=== PATIENT | male | born 1940 | race Caucasian/White ===

== ENCOUNTER → 2017-08-07 | Day surgery (SDC) | payer OTHER, MEDICARE ==
[~2017-08-07] VITALS: Ht 182.9 cm; Wt 80.0 kg
[~2017-08-07] MED LIST: ACETAMINOPHEN 325 MG TAB PO PRN; AMOX250C3 PO; ASPI-435 PO; ATROPINE SULFATE 0.1 MG/ML 5ML SYR IV PRN; DURATUSS PO; FENTANYL CITRATE INJ 50 MCG/1 ML 2 ML VIAL ONE; HEPARIN SOD (PORCINE) 1000 UNIT/ML 10 ML VIAL ONE; INSPRA PO; LIDOCAINE HCL 1% 20 ML VIAL ONE; MIDAZOLAM HCL 1 MG/ML 2ML VIAL ONE; NIAC500T11 PO; NITROGLYCERIN/D5W 100MCG/ML 20ML SYR ONE; NiCARDipine HCL INJ 2.5 MG/ML 10 ML AMP ONE; ROPI1TAB PO; SODIUM CHLORIDE 0.9% 1000ML 1,000 ML IV SCH; SODIUM CHLORIDE 0.9% 1000ML 250 ML IV PRN
[2017-08-07 07:18] VITALS: BP 156/75; PULSE 53; TEMP 36.6; O2SAT 100; Ht 182.9 cm; Wt 80.0 kg
--- NOTE | 2017-08-07 07:35 | History & Physical Bridge Note ---
H&P Re-Evaluation Bridge Note: I have examined the patient, reviewed the History & Physical and in the interval since the performance of the History & Physical I have noted the following changes of clinical significance: No changes noted
--- NOTE | 2017-08-07 07:36 | Pre Sedation Assessment ---
Pre Sedation Assessment General Date of Sedation: Aug 07, 2017. Vital Signs Past 12 Hours Date Time Temp Pulse Resp B/P (MAP) Pulse Ox O2 Delivery O2 Flow Rate FiO2 08/07/17 07:18 36.6 53 16 156/75 (102) 100 Room Air Review Cardiovascular: regular rate, rhythm, no edema, no gallop Lungs: chest non-tender, lungs clear, normal breath sounds Pre-Sedation Airway Assessment Smoking Status: Never Smoker Hx of Sleep Apnea: No Short Thick Neck: No Thyro-mental Distance: > 3 Finger Breadths Oral Cavity: WNL Mallampati Classification: Class I ASA Classification: Class II NPO Status Date of Last Intake of Fluids: Aug 06, 2017 Time of Last Intake of Fluids: 1999 Date of Last Intake of Solids: Aug 06, 2017 Time of Last Intake of Solids: 1999 Procedure Planning Contraindications for Sedation: None Current Medications Reviewed: Yes Notes The planned sedation has been discussed with the patient. Informed Consent was obtained. I have identified the patient, determined the appropriateness of sedation and have assessed the patient immediately prior to the procedure. All medicine(s) and interventions are by my order.
--- NOTE | 2017-08-07 08:44 | [facility] Post Operative Brief Note ---
Preliminary Procedure Note Procedure Date Aug 07, 2017. Pre-Procedure Diagnosis Positive Stress Test AUC Score 7 Post-Procedure Diagnosis Mild CAD Procedure(s) Performed Coronary Angiography, Left Heart Cath, LV Angiography Vp Foundation Dr. Alejandro Miller Salon Leader(s) Javier Edwards Estimated Blood Loss <15cc Medication(s) Fentanyl (12.5 mcg IV), Heparin (5000 units IV), Nicardipine (250 mcg intra- arterial after arterial sheath inserted), Versed (1 mg IV), Lidocaine 1% (Local infiltration) Preliminary Findings Right dominant coronary anatomy Left main: Very short with near separate origins of the left anterior descending and left circumflex Left anterior descending: Type III in distribution with very large first septal branch, small first diagonal large bifurcating second diagonal branch. LAD system has mild luminal irregularities throughout but no obstruction. Apical segment is thin Left circumflex: Left circumflex has near separate origin and gives rise to an early takeoff high marginal branch followed by a bifurcating obtuse marginal and a trivial AV groove portion. There are moderate irregularities throughout Right coronary artery: Large dominant vessel with long PDA and single large posterior ventricular branch both of which reached to the apex. There are moderate irregularities throughout the vessel with mild ectasia. There is a pronounced xavier's crook in its proximal segment with 20-30% narrowing at its first bend Left ventricle: Nondilated with low normal LV systolic function EF 50% and no segmental abnormalities. Left ventricular end-diastolic pressure 10 mmHg Recommendations Medical therapy and/or Counseling Specimens None Fluids (cc crystalloids) 47 Anesthesia Start 0802 End 0824 Akash Coreasell Procedural Complication(s) None Disposition Script Worker Holding/Recovery
--- NOTE | 2017-08-07 08:55 | Discharge Instructions ---
Discharge Instructions Procedure Procedure Date: Aug 07, 2017. Reason for Visit: Abn Nuc Stress Test Dr Anglin To Do. Discharge Discharge Date: Aug 07, 2017. Discharge Diagnosis: Mild coronary atherosclerosis only Last Recorded Wt (Kilograms): 80 Anesthesia Post Anesthesia Instructions: If you have had General Anesthesia or IV Sedation: * Do not drive today. * Resume driving when surgeon permits. * Do not make important decisions or sign legal documents today. * Call surgeon for: 1. Temperature elevations greater than 101 degrees F. 2. Uncontrollable pain. 3. Excessive bleeding. 4. Persistent nausea and vomiting. 5. Medication intolerance (nausea, vomiting or rash). * For nausea and vomiting use only clear liquids such as: tea, soda, bouillon until nausea subsides, then gradually increase diet as tolerated. * If you have any concerns or questions, call your surgeon's office. If physician is unavailable and it is an emergency, call 911 or go to the nearest emergency room. Instructions Activity Recommendations: limitations as noted below Recommended Home Diet: resume previous diet Allergies: Coded Allergies: Fluoxetine (Unverified Allergy, Mild, CAUSE RLS, 10/31/09) Spironolactone (Unverified Allergy, Mild, RASH, 10/31/09) Acetaminophen (Unverified Allergy, Unknown, ANXIETY, 02/25/15) Baclofen (Unverified Allergy, Unknown, ANXIETY, 02/25/15) Benzodiazepines (Unverified Allergy, Unknown, PANIC ATTACK, 02/25/15) [place] [facility]CF (Unverified Allergy, Unknown, UNKNOWN, 02/25/15) Clioquinol (Unverified Allergy, Unknown, ANXIETY, 02/25/15) Diphenhydramine (Unverified Allergy, Unknown, ANXIETY, 02/25/15) Escitalopram (Unverified Allergy, Unknown, CAUSES RLS, 02/25/15) Fluvoxamine (Unverified Allergy, Unknown, CAUSES RLS, 02/25/15) Guaifenesin (Unverified Allergy, Unknown, UNKNOWN, 02/25/15) HMG-CoA-R Inhibitors (Verified Allergy, Unknown, STATINS, 06/03/09) Hydrocortisone (Unverified Allergy, Unknown, ANXIETY, 02/25/15) Paroxetine (Unverified Allergy, Unknown, CAUSES RLS, 02/25/15) Pseudoephedrine (Unverified Allergy, Unknown, UNKNOWN, 02/25/15) Zolpidem (Unverified Allergy, Unknown, ANXIETY, 02/25/15) Uncoded Allergies: PROPOFOL (Allergy, Mild, DELIRIUM, 08/07/17) Pt stated he could not hold legs still, and was thrashing around after having propofol. Provider Instructions ACTIVITY RECOMMENDATIONS: Excess manipulation of the wrist should be avoided for the next 24-48 hours. * No lifting over 2 pounds (approximately a 1/2 gallon of milk) with the utilized arm for 24 hours. * No strenuous activity such as bowling or tennis for 3 days. * Keep the site of the procedure covered with a bandage for 24 hours. *You may shower the day after the procedure. Do not take a tub bath or submerge the puncture site in water for the next 3 days. *Do not operate any motorized equipment for 3 days. SPECIAL CARE INSTRUCTIONS: The site may be slightly bruised and sore following your procedure. Should any of the following occur, contact the Dr. who performed your procedure. 1. Redness/inflammation, swelling, chills, or fever, or colored drainage at procedure site within 3-7 days after your procedure. 2. Coldness, discoloration, ongoing numbness, severe pain, or swelling. Expect mild tingling of hand and tenderness at the puncture site for up to three days. If this persists beyond three days, or other symptoms develop, notify the Dr. who performed your procedure. BLEEDING: If the procedure site on your wrist begins to bleed, do not panic 1. Place 1 or 2 fingers firmly just slightly above the insertion site to stop the bleeding. You may be able to feel your pulse as you hold pressure. 2. Lift your finger after 5 minutes to see if the bleeding has stopped. 3. Once the bleeding has stopped, gently wipe the wrist area clean with a bandage. * If the bleeding from your wrist does not stop after 10 minutes, or if there is a large amount of bleeding or spurting, call 911 (do not drive yourself to the hospital). SKIN IRRITATION: * You may experience some redness and/or swelling in the area where radiation was administered. If any skin irritation occurs, please contact your family physician. FOLLOW UP VISIT: Keep any scheduled doctor appointments. Follow Up Follow-up with: Dr. Miller as scheduled [facility] Recommendations: Call your doctor if: * Temperature above 101 degrees * Pain not relieved by pain medicine ordered * There is increased drainage or redness from any incision * You have any unanswered questions or concerns. Your Doctors Instructions noted above were prepared by provider Alejandro Miller. Patient Signature Section: Patient Instructions Signature Page Masood Goldstein Patient (or Guardian) Signature/Date: I have read and understand the instructions given to me by my caregivers. Caregiver/RN/Doctor Signature/Date: The above-named patient and/or guardian has received patient instructions on this date. + Original Patient Signature Page (only) stays with chart. Please make copy for patient.
--- NOTE | 2017-08-07 09:04 | Cardiac Catheterization ---
Procedure Note Procedure Date Aug 07, 2017. Pre-Procedure Diagnosis Positive Stress Test AUC Score 7 Post-Procedure Diagnosis Mild CAD Procedure(s) Performed Coronary Angiography, Left Heart Cath, LV Angiography Wheel And Caster Repairer Dr. Alejandro Miller Sr Community Manager(s) Javier Bazan Estimated Blood Loss Less than 15 cc Medication(s) Fentanyl (12.5 mcg IV), Heparin (5000 units IV), Nicardipine (250 mcg intra- arterial after arterial sheath insertion), Versed (1 mg IV), Lidocaine 1% ( Local infiltration) Summary of Findings Right dominant coronary anatomy Left main: Very short with near separate origins of the left anterior descending and left circumflex Left anterior descending: Type III in distribution with very large first septal branch, small first diagonal large bifurcating second diagonal branch. LAD system has mild luminal irregularities throughout but no obstruction. Apical segment is thin Left circumflex: Left circumflex has near separate origin and gives rise to an early takeoff high marginal branch followed by a bifurcating obtuse marginal and a trivial AV groove portion. There are moderate irregularities throughout Right coronary artery: Large dominant vessel with long PDA and single large posterior ventricular branch both of which reached to the apex. There are moderate irregularities throughout the vessel with mild ectasia. There is a pronounced xavier's crook in its proximal segment with 20-30% narrowing at its first bend Left ventricle: Nondilated with low normal LV systolic function EF 50% and no segmental abnormalities. Left ventricular end-diastolic pressure 10 mmHg Hemodynamics Rest Ao: 128/69/92 Final Ao: 120/61/90 LV: 105/2/10, LVEDP 10 Recommendations Medical therapy and/or Counseling Specimens None Radiation Exposure (mGy) 185 Contrast (mls) 136 Fluids (cc crystalloids) 47 Anesthesia Start 08, End 08 V. Torsell Procedural Complication(s) None Disposition Workshop Manager Holding/Recovery ACC Data Cardiac Status Clinical evaluation leading to the procedure CAD Presntation: Positive Stress Test Anginal Classification: CCS II Heart Failure: No Cardiogenic Shock w/in 24Hrs: No Cardiac Arrest w/in 24Hrs: No Imaging studies past 6 months: Yes Stress studies past 6 months: Yes Stress Echocardiogram: Yes - Indeterminant Stress Testing w/SPECT MPI: Yes - Positive Coronary Anatomy Dominant: Right Left Main (% Stenosis): Normal LAD (% Stenosis): Mid (10%), Distal (Thin with mild luminal irregularities) D1 (% Stenosis): Ostial, Proximal (Mild irregularities) D2 (% Stenosis): Proximal (Large with mild irregularities) Circumflex (% Stenosis): Ostial (Near separate origin, no stenosis), Mid (Mild irregularities) OM1 (% Stenosis): Mid (Mild irregularity) OM2 (% Stenosis): Mid (Large vessel with mild irregularities) RCA (% Stenosis): Proximal (20%) R PDA (% Stenosis): Mid (Mild irregularities with lengthy vessel reaching apex) R PL1 (% Stenosis): Mid (Mild irregularities with long vessel reaching the apex ) Left Ventricular Angiography EF (%): 50 Mitral Regurgitation: None Diagnostic Status: Elective Closure Device Percutaneous Entry Location: Radial Closure Device: Radial Band Recommendations: Medical therapy and/or Counseling
[2017-08-07 10:10] VITALS: BP 110/66; PULSE 56; O2SAT 99
== END | disposition home or self-care (01) ==
LOC: C.CATH 07:00
PROVIDERS: ATTEND Internal Medicine Interventional Cardiology
DX: I25.10 Atherosclerotic heart disease of native coronary artery without angina pectoris (principal); I10 Essential (primary) hypertension; E27.40 Unspecified adrenocortical insufficiency; E78.5 Hyperlipidemia, unspecified; Z88.6 Allergy status to analgesic agent

== ENCOUNTER 2021-03-22 12:41 | Observation (INO) ==
--- NOTE | 2021-03-22 13:04 | Emergency Department Note ---
Impression & Plan Atypical chest pain ED Provider Note NAME: DOREEN MORROW AGE: 80 SEX: M : 1940 ARRIVES VIA: Walk-In INFORMANT: Patient, ED PROVIDER(S): Itz Coyne MD Chief Complaint: Chest pain HPI: Patient does present with just left of center chest discomfort which began around 5 AM this morning. The patient states it has been intermittent in nature and nonradiating. It does feel pressure-like. Patient denies any fevers chills chest pains or shortness of breath. No history of DVT or PE. The patient does admit to increased stress as he is working on a project that is not going well. Patient denies any tobacco use but does drink alcohol essentially daily. Patient did have a negative cardiac catheterization several years ago he does follow with Dr. Miller. Patient states that the pain has been intermittent but it seems to be presenting more frequently. Patient states his current pain is about 4 out of 10. Patient did take a baby aspirin but no other medications today. Patient denies any infectious symptoms. Patient is vaccinated for Covid. He denies any recent travel, history of DVT or PE, or lower extremity swelling. Patient does relate that his father does have a history of CABG and stroke. ROS: See HPI for pertinent positives and negatives. A total of 10 systems were reviewed and otherwise negative. Past medical history: See below Surgical history: See below Social history: See below Physical Exam: GENERAL: NAD, wearing glasses, wearing a mask, non-toxic. EYE EXAM: Normal conjunctiva. PERRL, no anisocoria and EOM's grossly intact w/o pain. NECK: Supple, no nuchal rigidity, no adenopathy, non-tender. No signs of meningismus. LUNGS: Clear to auscultation. Normal chest wall mechanics. HEART: Bradycardic, no MRG. ABDOMEN: Abdomen soft, non-tender, normo-active bowel sounds, no masses, no rebound or guarding. BACK: No CVA TTP. SKIN: No rashes and no bruising. UPPER EXTREMITIES: Upper extremities are grossly normal. LOWER EXTREMITIES: Grossly normal, no edema. Negative Homans' sign bilaterally. NEURO EXAM: A&O x3, cranial nerves II-XII grossly intact, normal speech, moves all 4 extremities on command w/o issue. Differential diagnoses: Cardiac ischemia, aortic dissection, pulmonary embolism, pneumothorax, pneumonia, pericarditis, myocarditis, esophageal rupture, GERD, cholecystitis, pancreatitis, musculoskeletal, as well as other pathologies. Course: Patient was seen and evaluated the bedside. Full history physical exam was performed. EKG interpreted by me Bradycardia with PACs, rate of 54, normal intervals, left axis deviation, T wave inversion inferiorly. Imaging Studies: See Below Cardiac monitoring: An order was placed for continuous cardiac monitoring. The monitor shows a rate of 55 with sinus rhythm. MDM: Patient was seen due to concern for atypical chest pain. Blood work was obtained. The patient's blood work unremarkable with negative troponin. Given the atypical nature I did speak the on-call business performance analyst Dr. Keller who r ecommended observation. The patient was given a full dose aspirin. Nitroglycerin did not change his discomfort. I did speak with the on-call hospitalist and a JAIDEN Peraza and the patient was admitted by Dr. Otoole. Past Med/Surg History Medical History BPH (benign prostatic hyperplasia) CAD (coronary artery disease) GERD (gastroesophageal reflux disease) HLD (hyperlipidemia) HTN (hypertension) Hyperaldosteronism RLS (restless legs syndrome) Surgical History History of appendectomy History of inguinal hernia repair History of tonsillectomy and adenoidectomy Family History Father Coronary heart disease Stroke Social History Smoking Status: Never smoker Feels Safe at Home: Yes Allergies Allergies Allergy/AdvReac Type Severity Reaction Status Date / Time fluoxetine Allergy Mild CAUSE RLS Unverified 03/22/21 14:37 spironolactone Allergy Mild RASH Unverified 03/22/21 14:37 acetaminophen Allergy Unknown ANXIETY Unverified 03/22/21 14:37 baclofen Allergy Unknown ANXIETY Unverified 03/22/21 14:37 Benzodiazepines Allergy Unknown PANIC Unverified 03/22/21 14:37 ATTACK clioquinol Allergy Unknown ANXIETY Unverified 03/22/21 14:37 diphenhydramine Allergy Unknown ANXIETY Unverified 03/22/21 14:37 escitalopram Allergy Unknown CAUSES RLS Unverified 03/22/21 14:37 fluvoxamine Allergy Unknown CAUSES RLS Unverified 03/22/21 14:37 guaifenesin Allergy Unknown UNKNOWN Unverified 03/22/21 14:37 hydrocortisone Allergy Unknown ANXIETY Unverified 03/22/21 14:37 paroxetine Allergy Unknown CAUSES RLS Unverified 03/22/21 14:37 pseudoephedrine Allergy Unknown UNKNOWN Unverified 03/22/21 14:37 zolpidem Allergy Unknown ANXIETY Unverified 03/22/21 14:37 PROPOFOL Allergy Mild DELIRIUM Uncoded 03/22/21 14:37 [place] Blue FCF Allergy Unknown UNKNOWN Uncoded 03/22/21 14:37 HMG-CoA-R Inhibitors Allergy Unknown STATINS Uncoded 03/22/21 14:37 Home Meds Home Medications Medication Instructions Recorded Confirmed eplerenone 25 mg tablet 50 mg PO BID 03/22/21 03/22/21 pramipexole 1.5 mg tablet 3 mg PO HS 03/22/21 03/22/21 tamsulosin 0.4 mg capsule 0.4 mg PO DAILY 03/22/21 03/22/21 Results & Data (ED) Vital Signs Vital Signs - 24 hr 03/22/21 12:54 03/22/21 13:05 03/22/21 13:30 Temperature 36.4 C L Temperature Source Oral Pulse Rate 49 L 46 L 53 L Pulse Rate from SpO2 Sensor 47 L Respiratory Rate 18 15 15 Blood Pressure 125/77 102/72 Blood Pressure Mean 93 82 Pulse Oximetry 96 97 Oxygen Delivery Method Room Air Sepsis Recent Fever Within 48 Hours No Sepsis New/Unexplained Change in Mental Status No Sepsis Action Taken by Nursing No Action Required 03/22/21 13:49 03/22/21 14:00 03/22/21 14:30 Temperature Temperature Source Pulse Rate 49 L 46 L Pulse Rate from SpO2 Sensor 50 L Respiratory Rate 11 L 23 Blood Pressure Blood Pressure Mean Pulse Oximetry 95 96 Oxygen Delivery Method Room Air Sepsis Recent Fever Within 48 Hours Sepsis New/Unexplained Change in Mental Status Sepsis Action Taken by Nursing 03/22/21 15:00 03/22/21 15:30 03/22/21 16:00 Temperature Temperature Source Pulse Rate 65 55 L 60 Pulse Rate from SpO2 Sensor 54 L 53 L Respiratory Rate 21 15 19 Blood Pressure Blood Pressure Mean Pulse Oximetry 94 96 Oxygen Delivery Method Sepsis Recent Fever Within 48 Hours Sepsis New/Unexplained Change in Mental Status Sepsis Action Taken by Nursing 03/22/21 16:30 03/22/21 17:00 03/22/21 17:30 Temperature Temperature Source Pulse Rate 63 62 58 L Pulse Rate from SpO2 Sensor Respiratory Rate 20 17 17 Blood Pressure 134/81 129/82 142/87 H Blood Pressure Mean 98 97 105 Pulse Oximetry 95 Oxygen Delivery Method Room Air Sepsis Recent Fever Within 48 Hours Sepsis New/Unexplained Change in Mental Status Sepsis Action Taken by Half-Way Medications Current Medication List: was personally reviewed by me Laboratory Data Attestation: I reviewed the patient's lab results. Result diagrams: 03/22/21 13:20 03/22/21 13:20 Lab Results 03/22/21 03/22/21 03/22/21 Range/Units 13:20 13:20 Unknown WBC 5.46 (4.8-10.8) K/uL RBC 4.76 (4.7-6.1) M/uL Hgb 15.8 (14.0-18.0) g/dL Hct 46.4 (42-52) % MCV 97.5 (80-100) fL MCH 33.2 (25-34) pg MCHC 34.1 (32-36) g/dL RDW Std Deviation 44.7 (36.4-46.3) fL RDW Coeff of Pietro 12.5 (11.5-14.5) % Plt Count 180 (130-400) K/uL MPV 10.3 (7.4-10.4) fL Immature Gran % (Auto) 0.2 % Neut % (Auto) 57.7 % Lymph % (Auto) 29.5 % [place] % (Auto) 10.3 % Eos % (Auto) 1.8 % Baso % (Auto) 0.5 % Neut # (Auto) 3.15 (1.4-6.5) K/uL Lymph # (Auto) 1.61 (1.2-3.4) K/uL [place] # (Auto) 0.56 (0.11-0.59) K/uL Eos # (Auto) 0.10 (0-0.5) K/uL Baso # (Auto) 0.03 (0-0.2) K/uL Immature Gran # (Auto) 0.01 (0.00-0.02) K/uL Sodium 140 (136-145) mmol/L Potassium 4.3 (3.5-5.1) mmol/L Chloride 108 H (98-107) mmol/L Carbon Dioxide 27 (21-32) mmol/L Anion Gap 5.0 (3-11) BUN 19 H (7-18) mg/dl Creatinine 0.97 (0.6-1.4) mg/dl Est Cr Clr Drug Dosing 66.7 ml/min Est GFR ( Amer) 85.1 ml/min Est GFR (Non-Af Amer) 73.4 ml/min BUN/Creatinine Ratio 19.1 (10-20) Glucose 69 L (70-99) mg/dl Calcium 9.3 (8.5-10.1) mg/dl Total Bilirubin 0.7 (0.2-1) mg/dl AST 22 (15-37) U/L ALT 35 (12-78) U/L Alkaline Phosphatase 116 (45-117) U/L Troponin I < 0.015 (0-0.045) ng/ml Total Protein 6.7 (6.4-8.2) gm/dl Albumin 3.3 L (3.4-5.0) gm/dl Globulin 3.4 (2.5-4.0) gm/dl Albumin/Globulin Ratio 1.0 (0.9-2) Lipase 160 (73-393) U/L SARS-CoV-2, RNA, NAAT NEGATIVE (NEGATIVE) Administered Medications Al Hydrox/Mg Hydrox/Simethicone (Aluminum/Magnesium Susp 30 Ml Udc) 30 ml PO Q6H PRN PRN Reason: Chest Pain Stop: 04/21/21 15:45 Last Admin: 03/22/21 16:54 Dose: 30 ml Documented by: [id number] Pantoprazole Sodium (Pantoprazole 40 Mg Tab) 40 mg PO DAILY LAKESHA Stop: 04/21/21 15:59 Last Admin: 03/22/21 16:54 Dose: 40 mg Documented by: [id number] Discontinued Medications Aspirin (Aspirin Chew 324 Mg) 324 mg PO NOW STA Stop: 03/22/21 13:20 Last Admin: 03/22/21 13:24 Dose: 324 mg Documented by: [id number] Sodium Chloride (Nss 1000ml) 500 mls @ 999 mls/hr IV .Q31M ONE Stop: 03/22/21 13:50 Last Infusion: 03/22/21 14:52 Dose: 0 mls/hr Documented by: [id number] Admin: 03/22/21 13:39 Dose: 999 mls/hr Documented by: [id number] Nitroglycerin (Nitroglycerin Sl 0.4 Mg/Tab Tab) 0.4 mg SL NOW STA Stop: 03/22/21 13:20 Last Admin: 03/22/21 13:25 Dose: 0.4 mg Documented by: [id number] Imaging Data Radiologist's Impression: Chest X-Ray 03/22/21 13:20 XR chest 1V portable HISTORY: 80 years-old Male Chest Pain acute atypical chest pain COMPARISON: Chest radiographs 04/24/2007 TECHNIQUE: Portable AP view of the chest FINDINGS: Cardiac silhouette is mildly enlarged. Mild left hemidiaphragmatic elevation w ith linear subsegmental left lung base opacities. No pneumothorax, large pleural effusion or overt pulmonary edema. Degenerative changes of the shoulders and spine. IMPRESSION: Mild left hemidiaphragmatic elevation with linear left lung base atelectasis. ACT 112: Negative or not required by law. The above report was generated using voice recognition software. It may contain grammatical, syntax or spelling errors. Electronically signed by: Samir Son M.D. 03/22/2021 1:43 PM Discharge Plan Visit Data Chief Complaint: Chest Pain Stated Complaint: CHEST PAIN ED Provider: Itz Coyne Discharge Problem: Atypical chest pain Patient Disposition: Admitted As Inpatient Prescriptions Prescriptions: No Action tamsulosin 0.4 mg capsule 0.4 mg PO DAILY RF: 0 pramipexole 1.5 mg tablet 3 mg PO HS RF: 0 eplerenone 25 mg Tablet 50 mg PO BID RF: 0 Referrals Referrals: Salas Morin MD [Outside Practitioners] -
[2021-03-22] MEDS ORDERED: NITROGLYCERIN SL 0.4 MG/TAB TAB SL STA (13:19)
[2021-03-22] MEDS ORDERED: NITROGLYCERIN SL 0.4 MG/TAB TAB SL PRN ×2 (13:19→18:26)
[2021-03-22] MEDS ORDERED: ASPIRIN CHEW 324 MG PO STA (13:19)
[2021-03-22] MEDS ORDERED: SODIUM CHLORIDE 0.9% 1000ML 500 ML IV ONE (13:20)
[2021-03-22 13:43] LABS: Basophils # (auto) 0.03 K/uL (0-0.2); Basophils % (auto) 0.5 %; Eosinophils % (auto) 1.8 %; Hematocrit (blood only) 46.4 % (42-52); Hemoglobin 15.8 g/dL (14.0-18.0); Immature Granulocytes # (auto) 0.01 K/uL (0.00-0.02); Immature Granulocytes % (auto) 0.2 %; Lymphocytes # (auto) 1.61 K/uL (1.2-3.4); Lymphocytes % (auto) 29.5 %; Mean Corpuscular Hemoglobin 33.2 pg (25-34); Mean Corpuscular Hgb Conc 34.1 g/dL (32-36); Mean Corpuscular Volume 97.5 fL (80-100); Mean Platelet Volume 10.3 fL (7.4-10.4); Monocytes # (auto) 0.56 K/uL (0.11-0.59); Monocytes % (auto) 10.3 %; Neutrophils # (auto) 3.15 K/uL (1.4-6.5); Neutrophils % (auto) 57.7 %; Platelet Count 180 K/uL (130-400); RDW Coefficient of Variation 12.5 % (11.5-14.5); RDW Standard Deviation 44.7 fL (36.4-46.3); Red Blood Count 4.76 M/uL (4.7-6.1); White Blood Count 5.46 K/uL (4.8-10.8)
--- NOTE | 2021-03-22 13:45 | XRay Report ---
XR chest 1V portable HISTORY: 80 years-old Male Chest Pain acute atypical chest pain COMPARISON: Chest radiographs 04/24/2007 TECHNIQUE: Portable AP view of the chest FINDINGS: Cardiac silhouette is mildly enlarged. Mild left hemidiaphragmatic elevation with linear subsegmental left lung base opacities. No pneumothorax, large pleural effusion or overt pulmonary edema. Degenera tive changes of the shoulders and spine. IMPRESSION: Mild left hemidiaphragmatic elevation with linear left lung base atelectasis. ACT 112: Negative or not required by law. The above report was generated using voice recognition software. It may contain grammatical, syntax o r spelling errors. Electronically signed by: Samir Son M.D. 03/22/2021 1:43 PM
[2021-03-22 14:02] LABS: Alanine Aminotransferase 35 U/L (12-78); Albumin Level 3.3 gm/dl (3.4-5.0); Aspartate Aminotransferase 22 U/L (15-37); BUN Creatinine Ratio 19.1 (10-20); Blood Urea Nitrogen 19 mg/dl (7-18); Calcium 9.3 mg/dl (8.5-10.1); Carbon Dioxide 27 mmol/L (21-32); Chloride 108 mmol/L (98-107); Creatinine Clr Calc Pharmacy 66.7 ml/min; Est GFR (African American) 85.1 ml/min; Est GFR (Non-African American) 73.4 ml/min; Glucose 69 mg/dl (70-99); Lipase 160 U/L (73-393); Potassium 4.3 mmol/L (3.5-5.1); Sodium 140 mmol/L (136-145)
[2021-03-22 14:06] LABS: Alkaline Phosphatase 116 U/L (45-117); Bilirubin,Total 0.7 mg/dl (0.2-1); Globulin 3.4 gm/dl (2.5-4.0); Total Protein 6.7 gm/dl (6.4-8.2); Troponin I < 0.015 ng/ml (0-0.045)
[2021-03-22] MEDS ORDERED: ALUMINUM/MAGNESIUM SUSP 30 ML UDC PO PRN (15:46)
--- NOTE | 2021-03-22 15:59 | Cardiology Consultation ---
Date of Consultation March 22, 2021 Assessment & Plan (1) Chest pain: (2) CAD (coronary artery disease): (3) GERD (gastroesophageal reflux disease): (4) Hiatal hernia: (5) Anxiety: It was my pleasure to see Mr. Goldstein in consultation today. His chest discomfort is atypical for angina but given his history of nonobstructive coronary disease I do believe for 23-hour observation is warranted at this time with serial cardiac enzymes and a resting echocardiogram. There is also a strong possibility that this is related to his GERD and I will give him Maalox now to see if this does not improve his symptoms. I will also start him on Protonix 40 mg p.o. daily. Further recommendations to follow in the a.m. History of Present Illness Reason for Consultation: chest pain Requesting Physician: Dr. Coyne Attending Physician: DEDRICK History of Present Illness It was my pleasure to see Mr. Goldstein in cardiac consultation today March 22, 2021. He is a very pleasant 80-year-old gentleman who presents to [facility] emergency department with several hours of chest discomfort. He notes that his chest discomfort started around 5 AM this morning. He describes as a dull achy sensation across his left precordium. He denies any associated symptoms with it. He notes that the discomfort was waxing and waning all morning and slowly progressed to the point where he became concerned and came into the ER for further evaluation. He does have a history of noncardiac chest pain in the past along with the diagnosis of GERD and hiatal hernia. He states that at first the discomfort did not feel like his normal GERD symptoms but as the day has gone on it does feel as though it is acid reflux. Otherwise, has been in his normal state of health lately. He did have half a glass of wine before going to bed last night but no other dietary changes as of late. Past medical history as per most recent outpatient visit: 1.Chronic ventricular ectopy. 2.Low normal LV systolic function. 3.False-positive stress Echo and stress nuclear imaging. 4.Mild coronary atherosclerosis without obstructive disease by cardiac catheterization, August 07, 2017 5.Mild hyperlipidemia with a history of statin intolerance 6.Hypothyroidism 7. GERD 8. Hiatal hernia Allergies Allergy/AdvReac Type Severity Reaction Status Date / Time fluoxetine Allergy Mild CAUSE RLS Unverified 03/22/21 14:37 spironolactone Allergy Mild RASH Unverified 03/22/21 14:37 acetaminophen Allergy Unknown ANXIETY Unverified 03/22/21 14:37 baclofen Allergy Unknown ANXIETY Unverified 03/22/21 14:37 Benzodiazepines Allergy Unknown PANIC Unverified 03/22/21 14:37 ATTACK clioquinol Allergy Unknown ANXIETY Unverified 03/22/21 14:37 diphenhydramine Allergy Unknown ANXIETY Unverified 03/22/21 14:37 escitalopram Allergy Unknown CAUSES RLS Unverified 03/22/21 14:37 fluvoxamine Allergy Unknown CAUSES RLS Unverified 03/22/21 14:37 guaifenesin Allergy Unknown UNKNOWN Unverified 03/22/21 14:37 hydrocortisone Allergy Unknown ANXIETY Unverified 03/22/21 14:37 paroxetine Allergy Unknown CAUSES RLS Unverified 03/22/21 14:37 pseudoephedrine Allergy Unknown UNKNOWN Unverified 03/22/21 14:37 zolpidem Allergy Unknown ANXIETY Unverified 03/22/21 14:37 PROPOFOL Allergy Mild DELIRIUM Uncoded 03/22/21 14:37 [place] FCF Allergy Unknown UNKNOWN Uncoded 03/22/21 14:37 HMG-CoA-R Inhibitors Allergy Unknown STATINS Uncoded 03/22/21 14:37 Home Medications Medication Instructions Recorded Confirmed Type eplerenone 25 mg tablet 50 mg PO DAILY 03/22/21 03/22/21 History pramipexole 1.5 mg tablet 3 mg PO HS 03/22/21 03/22/21 History tamsulosin 0.4 mg capsule 0.4 mg PO DAILY 03/22/21 03/22/21 History Patient History Social History Smoking Status: Never smoker Feels Safe at Home: Yes Review of Systems Review of Systems: All systems reviewed & are unremarkable except as noted in HPI & below Physical Exam Physical Exam: General: Awake, alert and oriented x 3. No acute distress. HEENT: Normocephalic, atraumatic. Pupils equal, round and reactive to light and accommodation. Extraocular muscles are intact. Anicteric sclera. Moist mucous membranes. Neck: No JVD. No bruit. Cardiovascular: Regular. Positive S-4. Normal S-1 and S-2. No S-3. No murmurs or rubs. Pulmonary: Clear to auscultation B/L. No rales, rhonchi or wheezing Abdomen: Bowel sounds x 4, soft. No rebound, guarding or tenderness. No organomegaly. Extremities: No clubbing, cyanosis or edema. +2 pedal pulses bilaterally. Skin: Warm and dry. Results & Data ([facility]) Vital Signs (Past 12 Hours) Vital Signs Temp Pulse Resp BP Pulse Ox 03/22/21 13:49 95 03/22/21 13:30 53 L 15 102/72 03/22/21 13:05 46 L 15 97 03/22/21 12:54 36.4 C L 49 L 18 125/77 96
--- NOTE | 2021-03-22 16:35 | History & Physical Report ---
Date of Service March 22, 2021 Assessment & Plan (1) Chest pain: Plan: History nonobstructive CAD Patient is 80 y/o M with PMH chronic ventricular ectopy, mild CAD without obstructive disease on cardiac cath 2017, HTN, HLD, RLS, BPH presented to ER with complaint of chest pain started this morning. Denies any associated shortness of breath, dizziness, syncope, palpitations. In ER patient afebrile, pulse 40s and 50s, BP 125/77, 96% on room air. Patient was given 1 sublingual nitro, 324 mg aspirin and 500 mL NSS. Initial troponin negative. EKG sinus bradycardia, nonspecific T wave abnormality While in ER patient reports chest discomfort seems to be constant and now he reports it feels like indigestion and now feels like chest discomfort is almost resolved. Atypical CP. R/O ACS. -Monitor Vitals -Repeat EKG in am -Will trend troponin -Echo -lipid panel in am -aspirin -Nitro prn CP and repeat EKG for CP -Cardiology consult, Started protonix and gave maalox for possible GERD (2) Bradycardia: Plan: Sinus bradycardia. Rate 40s-50s in ER. Denies dizziness, syncope -Monitor on tele (3) Hyperaldosteronism: Plan: -Continue eplerenone (4) HLD (hyperlipidemia): Plan: Diet controlled -Lipid panel in a.m. (5) BPH (benign prostatic hyperplasia): Plan: -Continue tamsulosin (6) RLS (restless legs syndrome): Plan: -Continue pramipexole DVT Prophylaxis -Heparin SQ Conditional code as per discussion with pt, wants chest compressions defibrillation, medication does not want intubated or mechanical ventilation Follows with Dr Aparicio for routine care Pt was seen and care coordinated with Dr Otoole. See addendum History of Present Illness Chief Complaint: Chest pain Primary Care Provider: Jonathon Aparicio DO Patient is 80 y/o M with PMH chronic ventricular ectopy, mild CAD without obstructive disease on cardiac cath 2017, HTN, HLD, RLS, BPH presented to ER with complaint of chest pain started this morning. Patient reports this morning around 5 AM started with slight chest discomfort over the left side of chest seem to be occurring approximately every 2 minutes and lasted approximately 30 seconds. Patient reports he tried to ignore it and later in the day pain seemed to slightly intensify. Denies any associated shortness of breath, dizziness, syncope, palpitations. Denies fever/chills, diaphoresis, N/V/D/C, ANDERSON, vision changes, neck pain, orthopnea, cough, sore throat, choking, otalgia, rhinorrhea, abdominal pain, paresthesias, weakness, extremity weakness, extremity edema, rashes, urinary symptoms. In ER patient afebrile, pulse 40s and 50s, BP 125/77, 96% on room air. Patient was given 1 sublingual nitro, 324 mg aspirin and 500 mL NSS. While in ER patient reports chest discomfort seems to be constant and now he reports it feels like indigestion and now feels like chest discomfort is almost resolved. Initial troponin negative. EKG sinus bradycardia, nonspecific T wave abnormality Allergies Allergy/AdvReac Type Severity Reaction Status Date / Time fluoxetine Allergy Mild CAUSE RLS Unverified 03/22/21 14:37 spironolactone Allergy Mild RASH Unverified 03/22/21 14:37 acetaminophen Allergy Unknown ANXIETY Unverified 03/22/21 14:37 baclofen Allergy Unknown ANXIETY Unverified 03/22/21 14:37 Benzodiazepines Allergy Unknown PANIC Unverified 03/22/21 14:37 ATTACK clioquinol Allergy Unknown ANXIETY Unverified 03/22/21 14:37 diphenhydramine Allergy Unknown ANXIETY Unverified 03/22/21 14:37 escitalopram Allergy Unknown CAUSES RLS Unverified 03/22/21 14:37 fluvoxamine Allergy Unknown CAUSES RLS Unverified 03/22/21 14:37 guaifenesin Allergy Unknown UNKNOWN Unverified 03/22/21 14:37 hydrocortisone Allergy Unknown ANXIETY Unverified 03/22/21 14:37 paroxetine Allergy Unknown CAUSES RLS Unverified 03/22/21 14:37 pseudoephedrine Allergy Unknown UNKNOWN Unverified 03/22/21 14:37 zolpidem Allergy Unknown ANXIETY Unverified 03/22/21 14:37 PROPOFOL Allergy Mild DELIRIUM Uncoded 03/22/21 14:37 [place] [employer] FCF Allergy Unknown UNKNOWN Uncoded 03/22/21 14:37 HMG-CoA-R Inhibitors Allergy Unknown STATINS Uncoded 03/22/21 14:37 Home Medications Medication Instructions Recorded Confirmed Type eplerenone 25 mg tablet 50 mg PO BID 03/22/21 03/22/21 History pramipexole 1.5 mg tablet 3 mg PO HS 03/22/21 03/22/21 History tamsulosin 0.4 mg capsule 0.4 mg PO DAILY 03/22/21 03/22/21 History Past Med/Surg History Medical History BPH (benign prostatic hyperplasia) CAD (coronary artery disease) GERD (gastroesophageal reflux disease) HLD (hyperlipidemia) HTN (hypertension) Hyperaldosteronism RLS (restless legs syndrome) Surgical History History of appendectomy History of inguinal hernia repair History of tonsillectomy and adenoidectomy Family History Father Coronary heart disease Stroke Social History Smoking Status: Never smoker Feels Safe at Home: Yes Review of Systems Review of Systems: All systems reviewed & are unremarkable except as noted in HPI & below Physical Exam Physical Exam: General: no distress, WDWN Head: normocephalic, atraumatic Eyes: PERRL, conjunctiva non-injected, anicteric ENT: normal inspection external ears, nose, mucous membranes moist Neck: supple, trachea midline Lungs: clear, no respiratory distress, no wheezing/rhonchi/rales CV: bradycardia, rate 56, regular rhythm, no murmur, no pretibial edema Abd: normal BS, soft, non-tender Ext: no cyanosis, no calf tenderness Neuro: A&O x 3, no focal deficits noted, normal affect Skin: warm, dry Results & Data Results & Data ([facility]) Vital Signs (Past 12 Hours) Vital Signs Temp Pulse Resp BP Pulse Ox 03/22/21 13:49 95 03/22/21 13:30 53 L 15 102/72 03/22/21 13:05 46 L 15 97 03/22/21 12:54 36.4 C L 49 L 18 125/77 96 Laboratory Results Short CBC 03/22/21 Range/Units 13:20 WBC 5.46 (4.8-10.8) K/uL Hgb 15.8 (14.0-18.0) g/dL Hct 46.4 (42-52) % Plt Count 180 (130-400) K/uL BMP 03/22/21 13:20 Sodium 140 Potassium 4.3 Chloride 108 H Carbon Dioxide 27 BUN 19 H Creatinine 0.97 Glucose 69 L Calcium 9.3 Cardiac Enzymes 03/22/21 Range/Units 13:20 Troponin I < 0.015 (0-0.045) ng/ml Liver Function 03/22/21 Range/Units 13:20 Total Bilirubin 0.7 (0.2-1) mg/dl AST 22 (15-37) U/L ALT 35 (12-78) U/L Alkaline Phosphatase 116 (45-117) U/L Albumin 3.3 L (3.4-5.0) gm/dl Diagnostic Findings Chest X-Ray 03/22/21 13:20 XR chest 1V portable HISTORY: 80 years-old Male Chest Pain acute atypical chest pain COMPARISON: Chest radiographs 04/24/2007 TECHNIQUE: Portable AP view of the chest FINDINGS: Cardiac silhouette is mildly enlarged. Mild left hemidiaphragmatic elevation with linear subsegmental left lung base opacities. No pneumothorax, large pleural effusion or overt pulmonary edema. Degenerative changes of the shoulders and spine. IMPRESSION: Mild left hemidiaphragmatic elevation with linear left lung base atelectasis. ACT 112: Negative or not required by law. The above report was generated using voice recognition software. It may contain grammatical, syntax or spelling errors. Electronically signed by: Samir Son M.D. 03/22/2021 1:43 PM Code Status & VTE Plan VTE Prophylaxis Plan VTE Prophylaxis will be ordered: Yes Supervising Physician Co-Signing Physician Notes 80 y/o M with PMH chronic ventricular ectopy, mild CAD without obstructive disease on cardiac cath 2018, HTN, HLD, RLS, BPH presented to ER 03/22 with complaint of chest pain started 5 AM on the day of arrival. Per patient the chest pain was on and off, coming every 2-minute, lasting for 30 seconds, decided to come to the ED at around 11 AM, resolved at the time of bedside exam. Patient received 1 sublingual nitro, 325 mg aspirin in the ED. Also received pantoprazole. Trend troponin, cardiology consult. Echo. Protonix. Upon examination GENERAL: Alert and oriented x3. NAD, on RA. HEENT: No pallor, no icterus. Pupils equal, round and reactive to light. Oral mucosa moist. NECK: No JVD, no neck masses. HEART: S1 and S2 heard. Regular rate and rhythm. Systolic murmur in Aortic area noted, no gallop. RESPIRATORY SYSTEM: Normal AP diameter. No accessory muscle use. No wheezing, no crackles. ABDOMEN: Soft, bowel sounds present, nontender, no distention. CENTRAL NERVOUS SYSTEM: Alert and oriented x3. No facial droop. Speech is clear. Obeys simple commands. Moves extremities. EXTREMITIES: No edema, no erythema seen. I have seen and examined the patient and have discussed the case with the provider above. I agree with the assessment and plan as stated.
[2021-03-22] MEDS: PANTOprazole 40 MG TAB PO SCH (16:54)
[2021-03-22] MEDS ORDERED: PRAMIPEXOLE DIHYDROCHLO 0.5 MG TAB PO SCH (21:00)
[2021-03-22] MEDS: HEPARIN SOD 5,000 UNIT/0.5 ML VIAL SQ SCH (22:27)
--- NOTE | 2021-03-23 07:03 | Electrocardiogram Report ---
Test Reason : Blood Pressure : / mmHG Vent. Rate : 044 BPM Atrial Rate : 044 BPM P-R Int : 170 ms QRS Dur : 100 ms QT Int : 444 ms P-R-T Axes : 069 -30 -11 degrees QTc Int : 379 ms Marked sinus bradycardia with marked sinus arrhythmia Left axis deviation Nonspecific T wave abnormality Abnormal ECG When compared with ECG of 31-OCT-2009 15:46, Premature supraventricular complexes are no longer Present Nonspecific T wave abnormality is now Present Confirmed by Nas Castellon ([id number]) on 03/23/2021 7:02:39 AM Referred By: Confirmed By:Nas Castellon
--- NOTE | 2021-03-23 07:06 | Electrocardiogram Report ---
Test Reason : Blood Pressure : / mmHG Vent. Rate : 054 BPM Atrial Rate : 054 BPM P-R Int : 178 ms QRS Dur : 096 ms QT Int : 454 ms P-R-T Axes : 063 -31 -07 degrees QTc Int : 430 ms Sinus bradycardia with Premature atrial complexes Left axis deviation Abnormal ECG When compared with ECG of 22-MAR-2021 12:58, Premature atrial complexes are now Present Confirmed by Nas Castellon ([id number]) on 03/23/2021 7:06:31 AM Referred By: REFERRED SELF Confirmed By:Nas Castellon
[2021-03-23 07:10] LABS: Hematocrit (blood only) 44.8 % (42-52); Hemoglobin 15.1 g/dL (14.0-18.0); Mean Corpuscular Hgb Conc 33.7 g/dL (32-36); Mean Corpuscular Volume 97.8 fL (80-100); Mean Platelet Volume 10.3 fL (7.4-10.4); Platelet Count 171 K/uL (130-400); RDW Coefficient of Variation 12.6 % (11.5-14.5); RDW Standard Deviation 45.4 fL (36.4-46.3); Red Blood Count 4.58 M/uL (4.7-6.1); White Blood Count 5.14 K/uL (4.8-10.8)
[2021-03-23] MEDS: HEPARIN SOD 5,000 UNIT/0.5 ML VIAL SQ SCH (07:23)
[2021-03-23] MEDS: PANTOprazole 40 MG TAB PO SCH (07:23)
[2021-03-23 07:45] LABS: BUN Creatinine Ratio 18.4 (10-20); Calcium 9.2 mg/dl (8.5-10.1); Creatinine Clr Calc Pharmacy 58.3 ml/min; Est GFR (African American) 72.3 ml/min; Est GFR (Non-African American) 62.4 ml/min; Potassium 4.1 mmol/L (3.5-5.1)
[2021-03-23] MEDS ORDERED: TAMSULOSIN HCL 0.4 MG CAP PO SCH (09:00)
[2021-03-23] MEDS ORDERED: ASPIRIN 81 MG ECTAB PO SCH (09:00)
--- NOTE | 2021-03-23 10:20 | Hospitalist Progress Note ---
Date of Service March 23, 2021 Assessment & Plan (1) Chest pain: Plan: History nonobstructive CAD Patient is 80 y/o M with PMH chronic ventricular ectopy, mild CAD without obstructive disease on cardiac cath 2018, HTN, HLD, RLS, BPH presented to ER with complaint of chest pain started this morning. Denies any associated shortness of breath, dizziness, syncope, palpitations. In ER patient afebrile, pulse 40s and 50s, BP 125/77, 96% on room air. Patient was given 1 sublingual nitro, 324 mg aspirin and 500 mL NSS. Initial troponin negative. EKG sinus bradycardia, nonspecific T wave abnormality While in ER patient reports chest discomfort seems to be constant and now he reports it feels like indigestion and now feels like chest discomfort is almost resolved. Atypical CP. R/O ACS. -Nitro prn CP and repeat EKG for CP -Monitor Vitals -troponin x3 negative -Echo obtained - No significant valvular pathology. LV is normal in size. Echo we will motion is normal. EF 55 to 60%. RV systolic function is normal. LA size is normal. RA size is normal. -lipid panel -LDL 108, cholesterol 179. Patient has allergy to statins, will have him follow-up as outpatient with his healthcare providers. -aspirin -Cardiology consulted, Started protonix and gave maalox for possible GERD After reviewing all the labs and echo, no further work-up at this time recommended. Cardiology will follow-up as outpatient. (2) Bradycardia: Plan: Sinus bradycardia. Rate 40s-50s in ER. Denies dizziness, syncope -Monitor on tele (3) Hyperaldosteronism: Plan: -Continue eplerenone (4) HLD (hyperlipidemia): Plan: Diet controlled (5) BPH (benign prostatic hyperplasia): Plan: -Continue tamsulosin (6) RLS (restless legs syndrome): Plan: -Continue pramipexole DVT Prophylaxis -Heparin SQ Conditional code as per discussion with pt, wants chest compressions defibrillation, medication does not want intubated or mechanical ventilation Follows with Dr Aparicio for routine care Admission and Anticipated Discharge Date Admission Date: March 22, 2021 Subjective Pt seen in follow up of chest pain Chest pain resolved yesterday after Maalox, patient reports history of acid reflux and hiatal hernia Today denies any chest pain shortness of breath dizziness Also denies any fevers chills abdominal pain nausea vomiting Says has been ambulating in the hallways without any difficulty Seen by cardiology earlier, plan to discharge home today Review of Systems Review of Systems: All systems reviewed & are unremarkable except as noted in Subjective Physical Exam Physical Exam: General: WD/WN M in NAD Head: normocephalic, atraumatic Eyes: PERRL, EOMI, conjunctiva non-injected, anicteric ENT: normal inspection external ears, nose, mucous membranes moist Neck: supple, trachea midline Lungs: clear, no respiratory distress, no wheezing/rhonchi/rales CV: bradycardia, rate 50s, regular rhythm, no murmur, no pretibial edema Abd: normal BS, soft, non-tender Ext: no calf tenderness, moves extremities Neuro: A&O x 3, no focal deficits noted, normal affect Skin: warm, dry Results & Data Results & Data ([facility]) Vital Signs (Past 12 Hours) Vital Signs Temp Pulse Pulse Pulse Resp BP Pulse Ox 03/23/21 07:18 36.5 C 51 L 120/70 94 03/23/21 04:37 47 L 03/23/21 03:36 36.4 C L 54 L 18 117/74 94 03/22/21 22:43 36.6 C 52 L 17 119/79 96 Laboratory Results 03/23/21 03/23/21 03/23/21 Range/Units 06:53 06:53 03:34 WBC 5.14 (4.8-10.8) K/uL RBC 4.58 L (4.7-6.1) M/uL Hgb 15.1 (14.0-18.0) g/dL Hct 44.8 (42-52) % MCV 97.8 (80-100) fL MCH 33.0 (25-34) pg MCHC 33.7 (32-36) g/dL RDW Std Deviation 45.4 (36.4-46.3) fL RDW Coeff of Pietro 12.6 (11.5-14.5) % Plt Count 171 (130-400) K/uL MPV 10.3 (7.4-10.4) fL Immature Gran % (Auto) % Neut % (Auto) % Lymph % (Auto) % [place] % (Auto) % Eos % (Auto) % Baso % (Auto) % Neut # (Auto) (1.4-6.5) K/uL Lymph # (Auto) (1.2-3.4) K/uL [place] # (Auto) (0.11-0.59) K/uL Eos # (Auto) (0-0.5) K/uL Baso # (Auto) (0-0.2) K/uL Immature Gran # (Auto) (0.00-0.02) K/uL Sodium 138 (136-145) mmol/L Potassium 4.1 (3.5-5.1) mmol/L Chloride 108 H (98-107) mmol/L Carbon Dioxide 25 (21-32) mmol/L Anion Gap 5.0 (3-11) BUN 20 H (7-18) mg/dl Creatinine 1.11 (0.6-1.4) mg/dl Est Cr Clr Drug Dosing 58.3 ml/min Est GFR ( Amer) 72.3 ml/min Est GFR (Non-Af Amer) 62.4 ml/min BUN/Creatinine Ratio 18.4 (10-20) Glucose 97 (70-99) mg/dl Calcium 9.2 (8.5-10.1) mg/dl Total Bilirubin (0.2-1) mg/dl AST (15-37) U/L ALT (12-78) U/L Alkaline Phosphatase (45-117) U/L Troponin I < 0.015 (0-0.045) ng/ml Total Protein (6.4-8.2) gm/dl Albumin (3.4-5.0) gm/dl Globulin (2.5-4.0) gm/dl Albumin/Globulin Ratio (0.9-2) Triglycerides 124 (0-150) mg/dl Cholesterol 179 (0-200) mg/dl LDL Cholesterol, Calc 108 mg/dl VLDL Cholesterol, Calc 25 mg/dl HDL Cholesterol 46 mg/dl Cholesterol/HDL Ratio 4 Lipase (73-393) U/L SARS-CoV-2, RNA, NAAT (NEGATIVE) 03/22/21 03/22/21 03/22/21 Range/Units Unknown 18:54 13:20 WBC (4.8-10.8) K/uL RBC (4.7-6.1) M/uL Hgb (14.0-18.0) g/dL Hct (42-52) % MCV (80-100) fL MCH (25-34) pg MCHC (32-36) g/dL RDW Std Deviation (36.4-46.3) fL RDW Coeff of Pietro (11.5-14.5) % Plt Count (130-400) K/uL MPV (7.4-10.4) fL Immature Gran % (Auto) % Neut % (Auto) % Lymph % (Auto) % [place] % (Auto) % Eos % (Auto) % Baso % (Auto) % Neut # (Auto) (1.4-6.5) K/uL Lymph # (Auto) (1.2-3.4) K/uL [place] # (Auto) (0.11-0.59) K/uL Eos # (Auto) (0-0.5) K/uL Baso # (Auto) (0-0.2) K/uL Immature Gran # (Auto) (0.00-0.02) K/uL Sodium 140 (136-145) mmol/L Potassium 4.3 (3.5-5.1) mmol/L Chloride 108 H (98-107) mmol/L Carbon Dioxide 27 (21-32) mmol/L Anion Gap 5.0 (3-11) BUN 19 H (7-18) mg/dl Creatinine 0.97 (0.6-1.4) mg/dl Est Cr Clr Drug Dosing 66.7 ml/min Est GFR ( Amer) 85.1 ml/min Est GFR (Non-Af Amer) 73.4 ml/min BUN/Creatinine Ratio 19.1 (10-20) Glucose 69 L (70-99) mg/dl Calcium 9.3 (8.5-10.1) mg/dl Total Bilirubin 0.7 (0.2-1) mg/dl AST 22 (15-37) U/L ALT 35 (12-78) U/L Alkaline Phosphatase 116 (45-117) U/L Troponin I < 0.015 < 0.015 (0-0.045) ng/ml Total Protein 6.7 (6.4-8.2) gm/dl Albumin 3.3 L (3.4-5.0) gm/dl Globulin 3.4 (2.5-4.0) gm/dl Albumin/Globulin Ratio 1.0 (0.9-2) Triglycerides (0-150) mg/dl Cholesterol (0-200) mg/dl LDL Cholesterol, Calc mg/dl VLDL Cholesterol, Calc mg/dl HDL Cholesterol mg/dl Cholesterol/HDL Ratio Lipase 160 (73-393) U/L SARS-CoV-2, RNA, NAAT NEGATIVE (NEGATIVE) 03/22/21 Range/Units 13:20 WBC 5.46 (4.8-10.8) K/uL RBC 4.76 (4.7-6.1) M/uL Hgb 15.8 (14.0-18.0) g/dL Hct 46.4 (42-52) % MCV 97.5 (80-100) fL MCH 33.2 (25-34) pg MCHC 34.1 (32-36) g/dL RDW Std Deviation 44.7 (36.4-46.3) fL RDW Coeff of Pietro 12.5 (11.5-14.5) % Plt Count 180 (130-400) K/uL MPV 10.3 (7.4-10.4) fL Immature Gran % (Auto) 0.2 % Neut % (Auto) 57.7 % Lymph % (Auto) 29.5 % [place] % (Auto) 10.3 % Eos % (Auto) 1.8 % Baso % (Auto) 0.5 % Neut # (Auto) 3.15 (1.4-6.5) K/uL Lymph # (Auto) 1.61 (1.2-3.4) K/uL [place] # (Auto) 0.56 (0.11-0.59) K/uL Eos # (Auto) 0.10 (0-0.5) K/uL Baso # (Auto) 0.03 (0-0.2) K/uL Immature Gran # (Auto) 0.01 (0.00-0.02) K/uL Sodium (136-145) mmol/L Potassium (3.5-5.1) mmol/L Chloride (98-107) mmol/L Carbon Dioxide (21-32) mmol/L Anion Gap (3-11) BUN (7-18) mg/dl Creatinine (0.6-1.4) mg/dl Est Cr Clr Drug Dosing ml/min Est GFR ( Amer) ml/min Est GFR (Non-Af Amer) ml/min BUN/Creatinine Ratio (10-20) Glucose (70-99) mg/dl Calcium (8.5-10.1) mg/dl Total Bilirubin (0.2-1) mg/dl AST (15-37) U/L ALT (12-78) U/L Alkaline Phosphatase (45-117) U/L Troponin I (0-0.045) ng/ml Total Protein (6.4-8.2) gm/dl Albumin (3.4-5.0) gm/dl Globulin (2.5-4.0) gm/dl Albumin/Globulin Ratio (0.9-2) Triglycerides (0-150) mg/dl Cholesterol (0-200) mg/dl LDL Cholesterol, Calc mg/dl VLDL Cholesterol, Calc mg/dl HDL Cholesterol mg/dl Cholesterol/HDL Ratio Lipase (73-393) U/L SARS-CoV-2, RNA, NAAT (NEGATIVE) Medications Administered Current Inpatient Medications Al Hydrox/Mg Hydrox/Simethicone (Aluminum/Magnesium Susp 30 Ml Udc) 30 ml PO Q6H PRN PRN Reason: Chest Pain Stop: 04/21/21 15:45 Last Admin: 03/22/21 16:54 Dose: 30 ml Documented by: Aspirin (Aspirin 81 Mg Ectab) 81 mg PO QAM LAKESHA Stop: 04/22/21 08:59 Last Admin: 03/23/21 07:23 Dose: 81 mg Documented by: Heparin Sodium (Porcine) (Heparin Sod 5,000 Unit/0.5 Ml Vial) 5,000 units SQ Q12 LAKESHA Stop: 04/21/21 20:59 Last Admin: 03/23/21 07:23 Dose: 5,000 units Documented by: Miscellaneous (Eplerenone- Order Awaiting Action) 1 ea N/A QS LAKESHA Stop: 04/22/21 00:00 Last Admin: 03/23/21 07:23 Dose: Not Given Documented by: Nitroglycerin (Nitroglycerin Sl 0.4 Mg/Tab Tab) 0.4 mg SL UD PRN PRN Reason: Chest Pain Stop: 04/21/21 18:25 Pantoprazole Sodium (Pantoprazole 40 Mg Tab) 40 mg PO DAILY LAKESHA Stop: 04/21/21 15:59 Last Admin: 03/23/21 07:23 Dose: 40 mg Documented by: Pramipexole Dihydrochloride (Pramipexole Dihydrochlo 0.5 Mg Tab) 3 mg PO HS LAKESHA Stop: 04/21/21 20:59 Last Admin: 03/22/21 22:26 Dose: 3 mg Documented by: Tamsulosin HCl (Tamsulosin Hcl 0.4 Mg Cap) 0.4 mg PO DAILY LAKESHA Stop: 04/22/21 08:59 Last Admin: 03/23/21 07:23 Dose: 0.4 mg Documented by:
--- NOTE | 2021-03-23 10:35 | Cardiology Progress Note ---
Date of Service March 23, 2021 Assessment & Plan (1) Chest pain: (2) CAD (coronary artery disease): (3) GERD (gastroesophageal reflux disease): (4) Hiatal hernia: (5) Anxiety: Plan: The patient feels well this morning. His cardiac markers have been negative. Echocardiogram shows no new wall motion abnormalities with normal LV function and no significant valvular pathology. I believe that he can be discharged home to outpatient follow-up. I will arrange for follow-up. Admission and Anticipated Discharge Date Admission Date: March 22, 2021 Subjective The patient had an uneventful night. No chest pain since admission. Review of Systems Review of Systems: Review of Systems: See HPI for pertinent positives. All other 10 point review of systems are negative. Physical Exam Physical Exam: General: no acute distress and stated age Head: normocephalic, no masses, lesions, tenderness or abnormalities Eyes: conjunctiva are pink and non-injected, sclera clear Neck: supple, no adenopathy, no bruits, normal jugular venous pulse, no hepatojugular reflux Chest: normal shape and normal respiratory effort Lungs: clear to auscultation and percussion Cardiac Exam: - regular rate & rhythm, no murmurs gallops or rubs - normal S1, normal S2 Pulses: 2(+) throughout Abdomen: abdomen soft, non-tender, no abnormal masses and no hepatosplenomegaly Musculoskeletal: no gait disturbance, no joint inflammation, no deforming arthritis Extremities: no edema and no cyanosis Neuro: grossly normal exam Results & Data ([facility]) Vital Signs (Past 12 Hours) Vital Signs Temp Pulse Pulse Pulse Resp BP Pulse Ox 03/23/21 07:18 36.5 C 51 L 120/70 94 03/23/21 04:37 47 L 03/23/21 03:36 36.4 C L 54 L 18 117/74 94 03/22/21 22:43 36.6 C 52 L 17 119/79 96 Laboratory Results Laboratory Results - last 24 hr 03/22/21 03/22/21 03/22/21 13:20 13:20 18:54 WBC 5.46 RBC 4.76 Hgb 15.8 Hct 46.4 MCV 97.5 MCH 33.2 MCHC 34.1 RDW Std Deviation 44.7 RDW Coeff of Pietro 12.5 Plt Count 180 MPV 10.3 Immature Gran % (Auto) 0.2 Neut % (Auto) 57.7 Lymph % (Auto) 29.5 [place] % (Auto) 10.3 Eos % (Auto) 1.8 Baso % (Auto) 0.5 Neut # (Auto) 3.15 Lymph # (Auto) 1.61 [place] # (Auto) 0.56 Eos # (Auto) 0.10 Baso # (Auto) 0.03 Immature Gran # (Auto) 0.01 Sodium 140 Potassium 4.3 Chloride 108 H Carbon Dioxide 27 Anion Gap 5.0 BUN 19 H Creatinine 0.97 Est Cr Clr Drug Dosing 66.7 Est GFR ( Amer) 85.1 Est GFR (Non-Af Amer) 73.4 BUN/Creatinine Ratio 19.1 Glucose 69 L Calcium 9.3 Total Bilirubin 0.7 AST 22 ALT 35 Alkaline Phosphatase 116 Troponin I < 0.015 < 0.015 Total Protein 6.7 Albumin 3.3 L Globulin 3.4 Albumin/Globulin Ratio 1.0 Triglycerides Cholesterol LDL Cholesterol, Calc VLDL Cholesterol, Calc HDL Cholesterol Cholesterol/HDL Ratio Lipase 160 SARS-CoV-2, RNA, NAAT 03/22/21 03/23/21 03/23/21 Unknown 03:34 06:53 WBC 5.14 RBC 4.58 L Hgb 15.1 Hct 44.8 MCV 97.8 MCH 33.0 MCHC 33.7 RDW Std Deviation 45.4 RDW Coeff of Pietro 12.6 Plt Count 171 MPV 10.3 Immature Gran % (Auto) Neut % (Auto) Lymph % (Auto) [place] % (Auto) Eos % (Auto) Baso % (Auto) Neut # (Auto) Lymph # (Auto) [place] # (Auto) Eos # (Auto) Baso # (Auto) Immature Gran # (Auto) Sodium Potassium Chloride Carbon Dioxide Anion Gap BUN Creatinine Est Cr Clr Drug Dosing Est GFR ( Amer) Est GFR (Non-Af Amer) BUN/Creatinine Ratio Glucose Calcium Total Bilirubin AST ALT Alkaline Phosphatase Troponin I < 0.015 Total Protein Albumin Globulin Albumin/Globulin Ratio Triglycerides Cholesterol LDL Cholesterol, Calc VLDL Cholesterol, Calc HDL Cholesterol Cholesterol/HDL Ratio Lipase SARS-CoV-2, RNA, NAAT NEGATIVE 03/23/21 06:53 WBC RBC Hgb Hct MCV MCH MCHC RDW Std Deviation RDW Coeff of Pietro Plt Count MPV Immature Gran % (Auto) Neut % (Auto) Lymph % (Auto) [place] % (Auto) Eos % (Auto) Baso % (Auto) Neut # (Auto) Lymph # (Auto) [place] # (Auto) Eos # (Auto) Baso # (Auto) Immature Gran # (Auto) Sodium 138 Potassium 4.1 Chloride 108 H Carbon Dioxide 25 Anion Gap 5.0 BUN 20 H Creatinine 1.11 Est Cr Clr Drug Dosing 58.3 Est GFR ( Amer) 72.3 Est GFR (Non-Af Amer) 62.4 BUN/Creatinine Ratio 18.4 Glucose 97 Calcium 9.2 Total Bilirubin AST ALT Alkaline Phosphatase Troponin I Total Protein Albumin Globulin Albumin/Globulin Ratio Triglycerides 124 Cholesterol 179 LDL Cholesterol, Calc 108 VLDL Cholesterol, Calc 25 HDL Cholesterol 46 Cholesterol/HDL Ratio 4 Lipase SARS-CoV-2, RNA, NAAT Medications Administered Current Inpatient Medications Al Hydrox/Mg Hydrox/Simethicone (Aluminum/Magnesium Susp 30 Ml Udc) 30 ml PO Q6H PRN PRN Reason: Chest Pain Stop: 04/21/21 15:45 Last Admin: 03/22/21 16:54 Dose: 30 ml Documented by: Aspirin (Aspirin 81 Mg Ectab) 81 mg PO QAM LAKESHA Stop: 04/22/21 08:59 Last Admin: 03/23/21 07:23 Dose: 81 mg Documented by: Heparin Sodium (Porcine) (Heparin Sod 5,000 Unit/0.5 Ml Vial) 5,000 units SQ Q12 LAKESHA Stop: 04/21/21 20:59 Last Admin: 03/23/21 07:23 Dose: 5,000 units Documented by: Miscellaneous (Eplerenone- Order Awaiting Action) 1 ea N/A QS LAKESHA Stop: 04/22/21 00:00 Last Admin: 03/23/21 07:23 Dose: Not Given Documented by: Nitroglycerin (Nitroglycerin Sl 0.4 Mg/Tab Tab) 0.4 mg SL UD PRN PRN Reason: Chest Pain Stop: 04/21/21 18:25 Pantoprazole Sodium (Pantoprazole 40 Mg Tab) 40 mg PO DAILY LAKESHA Stop: 04/21/21 15:59 Last Admin: 03/23/21 07:23 Dose: 40 mg Documented by: Pramipexole Dihydrochloride (Pramipexole Dihydrochlo 0.5 Mg Tab) 3 mg PO HS LAKESHA Stop: 04/21/21 20:59 Last Admin: 03/22/21 22:26 Dose: 3 mg Documented by: Tamsulosin HCl (Tamsulosin Hcl 0.4 Mg Cap) 0.4 mg PO DAILY LAKESHA Stop: 04/22/21 08:59 Last Admin: 03/23/21 07:23 Dose: 0.4 mg Documented by:
--- NOTE | 2021-03-23 11:18 | Discharge Summary ---
Date of Service March 23, 2021 Admission HPI Per Admitting Provider Patient is 80 y/o M with PMH chronic ventricular ectopy, mild CAD without obstructive disease on cardiac cath 2018, HTN, HLD, RLS, BPH presented to ER with complaint of chest pain started this morning. Patient reports this morning around 5 AM started with slight chest discomfort over the left side of chest seem to be occurring approximately every 2 minutes and lasted approximately 30 seconds. Patient reports he tried to ignore it and later in the day pain seemed to slightly intensify. Denies any associated shortness of breath, dizziness, syncope, palpitations. Denies fever/chills, diaphoresis, N/V/D/C, ANDERSON, vision changes, neck pain, orthopnea, cough, sore throat, choking, otalgia, rhinorrhea, abdominal pain, paresthesias, weakness, extremity weakness, extremity edema, rashes, urinary symptoms. In ER patient afebrile, pulse 40s and 50s, BP 125/77, 96% on room air. Patient was given 1 sublingual nitro, 324 mg aspirin and 500 mL NSS. While in ER patient reports chest discomfort seems to be constant and now he reports it feels like indigestion and now feels like chest discomfort is almost resolved. Initial troponin negative. EKG sinus bradycardia, nonspecific T wave abnormality Admission Exam Per Admitting Provider General: no distress, WDWN Head: normocephalic, atraumatic Eyes: PERRL, conjunctiva non-injected, anicteric ENT: normal inspection external ears, nose, mucous membranes moist Neck: supple, trachea midline Lungs: clear, no respiratory distress, no wheezing/rhonchi/rales CV: bradycardia, rate 56, regular rhythm, no murmur, no pretibial edema Abd: normal BS, soft, non-tender Ext: no cyanosis, no calf tenderness Neuro: A&O x 3, no focal deficits noted, normal affect Skin: warm, dry Principal Diagnosis Chest pain possibly secondary to GERD Hx of nonobstructive CAD Hx of hiatal hernia Discharge Exam General: WD/WN M in NAD Head: normocephalic, atraumatic Eyes: PERRL, EOMI, conjunctiva non-injected, anicteric ENT: normal inspection external ears, nose, mucous membranes moist Neck: supple, trachea midline Lungs: clear, no respiratory distress, no wheezing/rhonchi/rales CV: bradycardia, rate 50s, regular rhythm, no murmur, no pretibial edema Abd: normal BS, soft, non-tender Ext: no calf tenderness, moves extremities Neuro: A&O x 3, no focal deficits noted, normal affect Skin: warm, dry Discharge Data Allergies Allergy/AdvReac Type Severity Reaction Status Date / Time fluoxetine Allergy Mild CAUSE RLS Unverified 03/22/21 14:37 spironolactone Allergy Mild RASH Unverified 03/22/21 14:37 acetaminophen Allergy Unknown ANXIETY Unverified 03/22/21 14:37 baclofen Allergy Unknown ANXIETY Unverified 03/22/21 14:37 Benzodiazepines Allergy Unknown PANIC Unverified 03/22/21 14:37 ATTACK clioquinol Allergy Unknown ANXIETY Unverified 03/22/21 14:37 diphenhydramine Allergy Unknown ANXIETY Unverified 03/22/21 14:37 escitalopram Allergy Unknown CAUSES RLS Unverified 03/22/21 14:37 fluvoxamine Allergy Unknown CAUSES RLS Unverified 03/22/21 14:37 guaifenesin Allergy Unknown UNKNOWN Unverified 03/22/21 14:37 hydrocortisone Allergy Unknown ANXIETY Unverified 03/22/21 14:37 paroxetine Allergy Unknown CAUSES RLS Unverified 03/22/21 14:37 pseudoephedrine Allergy Unknown UNKNOWN Unverified 03/22/21 14:37 zolpidem Allergy Unknown ANXIETY Unverified 03/22/21 14:37 PROPOFOL Allergy Mild DELIRIUM Uncoded 03/22/21 14:37 [place] [facility] Allergy Unknown UNKNOWN Uncoded 03/22/21 14:37 HMG-CoA-R Inhibitors Allergy Unknown STATINS Uncoded 03/22/21 14:37 Consultations 03/22/21 15:17 ED Decision to Admit Stat 03/22/21 18:26 Consult Cardiology Routine Hospital Course (1) Chest pain: History nonobstructive CAD Patient is 80 y/o M with PMH chronic ventricular ectopy, mild CAD without obstructive disease on cardiac cath 2018, HTN, HLD, RLS, BPH presented to ER with complaint of chest pain started this morning. Denies any associated shortness of breath, dizziness, syncope, palpitations. In ER patient afebrile, pulse 40s and 50s, BP 125/77, 96% on room air. Patient was given 1 sublingual nitro, 324 mg aspirin and 500 mL NSS. Initial troponin negative. EKG sinus bradycardia, nonspecific T wave abnormalit y While in ER patient reports chest discomfort seems to be constant and now he reports it feels like indigestion and now feels like chest discomfort is almost resolved. Atypical CP. R/O ACS. -Nitro prn CP and repeat EKG for CP -Monitor Vitals -troponin x3 negative -Echo obtained - No significant valvular pathology. LV is normal in size. Echo we will motion is normal. EF 55 to 60%. RV systolic function is normal. LA size is normal. RA size is normal. -lipid panel -LDL 108, cholesterol 179. Patient has allergy to statins, will have him follow-up as outpatient with his healthcare providers. -aspirin -Cardiology consulted, Started protonix and gave maalox for possible GERD After reviewing all the labs and echo, no further work-up at this time recommended. Cardiology will follow-up as outpatient. (2) Bradycardia: Sinus bradycardia. Rate 40s-50s in ER. Denies dizziness, syncope -Monitor on tele (3) Hyperaldosteronism: -Continue eplerenone (4) HLD (hyperlipidemia): Diet controlled (5) BPH (benign prostatic hyperplasia): -Continue tamsulosin (6) RLS (restless legs syndrome): -Continue pramipexole DVT Prophylaxis -Heparin SQ Follows with Dr Aparicio for routine care Total Time Total Time Spent Total Time Spent (In Minutes): 35 Discharge Plan Discharge Items Patient Disposition: Home - Self-Care Reason For Visit: CP Discharge Diagnosis: Chest pain possibly secondary to GERD Hx of nonobstructive CAD Hx of hiatal hernia Activity: Per Instructions section Non-emergency contact: Primary Care Provider and Resource Conservation Specialist Call non-emergency contact if: you have any medication questions and your symptoms worsen Follow-up/Referrals: Jonathon Aparicio DO [Primary Care Provider] - Diet: Regular and Heart Healthy Addtl Attending Provider Instructions: Follow-up with your primary care doctor, within 1 to 2 weeks. You will also need to follow with cardiology, you will be contacted about the appointment. It is recommended that you take pantoprazole, for possible acid reflux. Discuss this further with your primary care doctor. Pending Studies at Discharge: No Stand-Alone Forms: [employer], Smoking Cessation Medications and DC Order Prescriptions: New aspirin 81 mg Tablet,Delayed Release (Dr/Ec) 81 mg PO QAM Qty: 30 RF: 0 pantoprazole 40 mg Tablet,Delayed Release (Dr/Ec) 40 mg PO DAILY Qty: 30 RF: 0 Continued tamsulosin 0.4 mg capsule 0.4 mg PO DAILY RF: 0 pramipexole 1.5 mg tablet 3 mg PO HS RF: 0 eplerenone 25 mg Tablet 50 mg PO BID RF: 0 Discharge Orders: Discharge Order (Routine); Ordered 03/23/21 Ordered By: Matt Lance Admission Data Admit Date/Time: 03/22/21 16:30 Attending Provider: Matt Lance Admit Provider: Jax Otoole Primary Care Provider: Jonathon Aparicio Other Providers: Jax Otoole ; Marques Keller
--- NOTE | 2021-03-23 12:32 | Electrocardiogram Report ---
Test Reason : Blood Pressure : / mmHG Vent. Rate : 048 BPM Atrial Rate : 088 BPM P-R Int : 172 ms QRS Dur : 090 ms QT Int : 466 ms P-R-T Axes : 055 -30 -28 degrees QTc Int : 416 ms Sinus bradycardia with occasional PACs Left axis deviation Abnormal ECG When compared with ECG of 22-MAR-2021 14:44, (unconfirmed) No significant change was found Confirmed by Srinivas Yeung ([id number]) on 03/23/2021 12:32:40 PM Referred By: REFERRED SELF Confirmed By:Leonidas Yeung
== END 2021-03-23 12:59 | disposition home or self-care (01) ==
LOC: ED 12:41 → EDINP 12:41 → SUATTDRO 16:30 → EDINP 18:29 → 2N 03-23 03:29

== ENCOUNTER 2022-08-31 22:25 | Inpatient (IN) ==
--- NOTE | 2022-08-31 22:41 | Emergency Department Note ---
History of Present Illness General Chief complaint: Neck Injury/Pain Stated complaint: POSSIBLE BLOOD CLOT IN NECK/DISCOLORATION Time Seen by Provider: 08/31/22 22:40 History of Present Illness Maximum Pain Intensity: 10 This 82-year-old male patient presents to the emergency department for evaluation of "a possible blood clot" in his neck. He states that he started with left-sided neck pain and "discoloration" 2 days ago. Symptoms are progressively getting worse. Had vascular surgery to the right lower leg on 08/17/[address] Ledesma at [facility] with 2 stents placed. They did not do any intervention to his neck during the surgery. He is now concerned for a blood clot in his neck because of worsening pain. He is on Eliquis and Plavis right now. He was started back on a statin after the surgery, but they stopped it 3 days ago because he did not tolerate it well due to body aches. Did not tolerate statins well in the past. Having pain to the left side of his neck for the past 3 days that worsens when he tries to lift his arms. Able to move his arms fully though and denies any weakness. No numbness or tingling into his arms. 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 Also states that he has had some intermittent cramping to both of his legs and is concerned for blood clots in his legs as well. He denies any injury or trauma to the neck. Denies any recent falls. Denies any chest pain, shortness of breath, abdominal pain, nausea, or vomiting. Denies any fevers, cough, or URI symptoms. He states that he has been taking oxycodone at home without improvement of the pain. Home Medications Medication Instructions Recorded Confirmed Type pramipexole 1.5 mg tablet 3 mg PO HS 03/22/21 08/31/22 History carboxymethylcellulose sodium 0.5 1 drp ophthalmic (eye) QID 06/07/21 08/31/22 History % eye drops apixaban 5 mg tablet (Eliquis) 5 mg PO BID 08/31/22 08/31/22 History cholecalciferol (vitamin D3) 10 10 mcg PO DAILY 08/31/22 08/31/22 History mcg (400 unit) capsule (Vitamin D3) clopidogrel 75 mg tablet 75 mg PO DAILY 08/31/22 08/31/22 History eplerenone 50 mg tablet 50 mg PO BID 08/31/22 08/31/22 History ezetimibe 10 mg tablet 10 mg PO QAM 08/31/22 08/31/22 History finasteride 5 mg tablet 5 mg PO DAILY 08/31/22 08/31/22 History metoprolol succinate 25 mg 12.5 mg PO DAILY 08/31/22 08/31/22 History tablet,extended release 24 hr oxycodone 5 mg tablet 5 mg PO Q4H PRN Pain 08/31/22 08/31/22 History pravastatin 20 mg tablet 20 mg PO HS 08/31/22 08/31/22 History Allergies Allergy/AdvReac Type Severity Reaction Status Date / Time spironolactone Allergy Intermediate RASH Verified 08/31/22 23:24 blue dye Allergy Unknown Unknown Verified 09/01/22 06:21 (bright blue HCF) propofol AdvReac Severe delerium Verified 09/01/22 06:21 atorvastatin [From Lipitor] AdvReac Intermediate GENERALIZED Verified 08/31/22 23:24 ACHES & PAINS baclofen AdvReac Intermediate ANXIETY Verified 08/31/22 23:24 Benzodiazepines AdvReac Intermediate VERSED--RLS, Verified 08/31/22 23:24 ANXIETY clioquinol AdvReac Intermediate ANXIETY Verified 08/31/22 23:24 diphenhydramine AdvReac Intermediate AGGRAVATES Verified 08/31/22 23:24 RLS escitalopram AdvReac Intermediate CAUSES RLS Verified 08/31/22 23:24 fluoxetine AdvReac Intermediate CAUSE RLS Verified 08/31/22 23:24 fluvoxamine AdvReac Intermediate CAUSES RLS Verified 08/31/22 23:24 guaifenesin AdvReac Intermediate Anxiety Verified 08/31/22 23:24 hydrocortisone AdvReac Intermediate ANXIETY Verified 08/31/22 23:24 lovastatin AdvReac Intermediate GENERALIZED Verified 08/31/22 23:24 ACHES & PAINS nystatin AdvReac Intermediate Muscle Pain Verified 08/31/22 23:24 paroxetine AdvReac Intermediate CAUSES RLS Verified 08/31/22 23:24 pseudoephedrine AdvReac Intermediate AGGRAVATES Verified 08/31/22 23:24 RLS rosuvastatin AdvReac Intermediate MYALGIAS Verified 08/31/22 23:24 simvastatin [From Zocor] AdvReac Intermediate GENERALIZED Verified 08/31/22 23:24 ACHES & PAIN zolpidem AdvReac Intermediate ANXIETY Verified 08/31/22 23:24 Past Med/Surg History Medical History BPH (benign prostatic hyperplasia) CAD (coronary artery disease) GERD (gastroesophageal reflux disease) HLD (hyperlipidemia) HTN (hypertension) Hyperaldosteronism RLS (restless legs syndrome) Surgical History History of appendectomy History of inguinal hernia repair History of tonsillectomy and adenoidectomy Family History Father Coronary heart disease Stroke Social History Smoking Status: Former smoker Do You Dip or Chew Tobacco: No; Hx Alcohol Use: Yes Alcohol type: wine Hx Substance Use: No Preferred Language: American Communication Ability: Effective Pillowcase Cutter Required: No Beliefs That Will Affect Care: None Current Living Situation: Alone Current Living Situation Comment: home with Other Information That Helps Us Care for You: No Feels Safe at Home: Yes Safety Concerns: Feels Safe At This Time Assistive Devices: Cane, Glasses and Hearing Aid - Bilateral Review of Systems See HPI for pertinent positives & negatives. Physical Exam Vital Signs Vital Signs - 24 hr 08/31/22 22:29 08/31/22 23:08 08/31/22 23:08 Temperature 37.4 C Temperature Source Temporal Artery Scan Pulse Rate 66 65 66 Pulse Rate from SpO2 Sensor 65 Respiratory Rate 18 18 Respiratory Effort / Characteristics Non-Labored Spontaneous Respiratory Depth Normal Respiratory Pattern Regular Blood Pressure 144/92 H 140/78 Blood Pressure Mean 109 98 Blood Pressure Position Sitting Pulse Oximetry 98 95 Oxygen Delivery Method Room Air Sepsis Recent Fever Within 48 Hours No Sepsis New/Unexplained Change in Mental Status N/A Sepsis Action Taken by Nursing No Action Required 08/31/22 23:50 09/01/22 00:00 09/01/22 01:20 Temperature Temperature Source Pulse Rate 64 64 73 Pulse Rate from SpO2 Sensor Respiratory Rate 21 20 17 Respiratory Effort / Characteristics Respiratory Depth Respiratory Pattern Blood Pressure Blood Pressure Mean Blood Pressure Position Pulse Oximetry Oxygen Delivery Method Sepsis Recent Fever Within 48 Hours Sepsis New/Unexplained Change in Mental Status Sepsis Action Taken by Nursing 09/01/22 01:31 09/01/22 01:31 09/01/22 02:30 Temperature Temperature Source Pulse Rate 70 Pulse Rate from SpO2 Sensor 70 Respiratory Rate 17 Respiratory Effort / Characteristics Respiratory Depth Respiratory Pattern Blood Pressure 122/80 124/79 Blood Pressure Mean 94 94 Blood Pressure Position Pulse Oximetry 94 Oxygen Delivery Method Room Air Sepsis Recent Fever Within 48 Hours Sepsis New/Unexplained Change in Mental Status Sepsis Action Taken by Nursing 09/01/22 02:30 09/01/22 03:00 09/01/22 03:00 Temperature Temperature Source Pulse Rate 73 68 Pulse Rate from SpO2 Sensor 60 68 Respiratory Rate 17 16 Respiratory Effort / Characteristics Respiratory Depth Respiratory Pattern Blood Pressure 128/80 Blood Pressure Mean 96 Blood Pressure Position Pulse Oximetry 90 91 Oxygen Delivery Method Room Air Room Air Sepsis Recent Fever Within 48 Hours Sepsis New/Unexplained Change in Mental Status Sepsis Action Taken by Nursing 09/01/22 03:30 09/01/22 03:30 09/01/22 04:00 Temperature Temperature Source Pulse Rate 65 Pulse Rate from SpO2 Sensor 60 Respiratory Rate 16 Respiratory Effort / Characteristics Respiratory Depth Respiratory Pattern Blood Pressure 128/83 136/88 Blood Pressure Mean 98 104 Blood Pressure Position Pulse Oximetry 94 Oxygen Delivery Method Room Air Sepsis Recent Fever Within 48 Hours Sepsis New/Unexplained Change in Mental Status Sepsis Action Taken by Nursing 09/01/22 04:00 09/01/22 04:26 09/01/22 04:30 Temperature Temperature Source Pulse Rate 60 60 60 Pulse Rate from SpO2 Sensor 60 60 Respiratory Rate 17 13 Respiratory Effort / Characteristics Respiratory Depth Respiratory Pattern Blood Pressure Blood Pressure Mean Blood Pressure Position Pulse Oximetry 95 93 Oxygen Delivery Method Room Air Room Air Sepsis Recent Fever Within 48 Hours Sepsis New/Unexplained Change in Mental Status Sepsis Action Taken by Nursing 09/01/22 04:34 09/01/22 05:00 09/01/22 05:00 Temperature Temperature Source Pulse Rate 60 Pulse Rate from SpO2 Sensor 60 Respiratory Rate 15 Respiratory Effort / Characteristics Respiratory Depth Respiratory Pattern Blood Pressure 117/77 125/76 Blood Pressure Mean 90 92 Blood Pressure Position Pulse Oximetry 93 Oxygen Delivery Method Sepsis Recent Fever Within 48 Hours Sepsis New/Unexplained Change in Mental Status Sepsis Action Taken by Nursing 09/01/22 06:30 09/01/22 06:30 09/01/22 07:00 Temperature Temperature Source Pulse Rate 60 60 Pulse Rate from SpO2 Sensor 60 Respiratory Rate 17 14 Respiratory Effort / Characteristics Respiratory Depth Respiratory Pattern Blood Pressure 130/88 125/81 Blood Pressure Mean 102 95 Blood Pressure Position Pulse Oximetry 94 Oxygen Delivery Method Room Air Sepsis Recent Fever Within 48 Hours Sepsis New/Unexplained Change in Mental Status Sepsis Action Taken by Nursing 09/01/22 07:30 Temperature Temperature Source Pulse Rate 60 Pulse Rate from SpO2 Sensor Respiratory Rate 13 Respiratory Effort / Characteristics Respiratory Depth Respiratory Pattern Blood Pressure 141/83 H Blood Pressure Mean 102 Blood Pressure Position Pulse Oximetry 95 Oxygen Delivery Method Sepsis Recent Fever Within 48 Hours Sepsis New/Unexplained Change in Mental Status Sepsis Action Taken by Nursing VITALS: Vitals are noted on the nurse's note and reviewed by myself. GENERAL: Non toxic, no acute distress, non-diaphoretic. SKIN: The patient has a slight faint blue discoloration to the left side of the neck. Resolving ecchymosis in the groin and leg from his vascular surgery. No erythema to suggest cellulitis. No obvious cording. Capillary refill <2 sec. EARS: External auditory canals clear, tympanic membranes pearly salas without erythema or effusion bilaterally. EYES: PERRLA. EOMI. Conjunctivae without injection, sclerae without icterus. NOSE: Patent without discharge. MOUTH: Mucous membranes moist. Uvula midline. Airway patent. Pharynx without erythema, edema, or exudate. NECK: The patient is tender to palpation over the left side of the neck and the cervical spine. Has difficulty moving his neck due to the pain. No obvious carotid bruits. Negative Kernig and Brudzinski. HEART: Regular rate and rhythm without murmurs gallops or rubs. LUNGS: Clear to auscultation bilaterally without wheezes, rales or rhonchi. No retractions or accessory muscle use. ABDOMEN: Positive bowel sounds x 4. Normal tympanic percussion. Soft, nonte nder, without masses or organomegaly. Chery sign negative. No guarding or rebound tenderness. No focal RLQ or LLQ tenderness. MUSCULOSKELETAL: Full range of motion of the bilateral upper and lower extremities. Strength 5/5 and equal in the bilateral upper and lower extremities. Peripheral pulses 2+. No tenderness to palpation of the thoracic or lumbar spine. The patient denies tenderness to palpation over the bilateral calves, but states that his calves just feel very sore. No erythema, edema, or cording. Negative Homans' sign. NEURO: Patient was alert and oriented to person place and time. No focal neurological deficits. Course Administered Medications Eplerenone (Pt's Own Med: Eplerenone 25mg Tabs) 2 each PO BID [facility]; Protocol Stop: 10/01/22 12:14 Last Admin: 09/01/22 12:28 Dose: 2 each Documented By: MELANIE Ferrous Sulfate (Ferrous Sulfate 325 Mg Tab) 325 mg PO BIDM [facility] Stop: 10/01/22 16:59 Last Admin: 09/01/22 16:07 Dose: 325 mg Documented By: MELANIE Finasteride (Finasteride 5 Mg Tab) 5 mg PO DAILY [facility] Stop: 10/01/22 09:40 Last Admin: 09/01/22 10:25 Dose: 5 mg Documented By: MELANIE Sodium Chloride (Nss 1000ml) 1,000 mls @ 50 mls/hr IV .Q20H ONE Stop: 09/02/22 03:45 Last Admin: 09/01/22 08:15 Dose: 50 mls/hr Documented By: FANNY Lidocaine (Lidocaine 5% 1 Patch) 1 patch TD QAM [facility] Stop: 10/01/22 13:59 Last Admin: 09/01/22 14:25 Dose: 1 patch Documented By: MELANIE Metoprolol Succinate (Metoprolol Succ 25mg Ext Rel Tab) 12.5 mg PO DAILY [facility] Stop: 10/01/22 09:40 Last Admin: 09/01/22 10:25 Dose: 12.5 mg Documented By: MELANIE Oxycodone HCl (Oxycodone Hcl Ir 5 Mg Tab (Immediate Release)) 5 - 10 mg PO QID PRN PRN Reason: Pain Stop: 09/15/22 06:15 Last Admin: 09/01/22 16:06 Dose: 10 mg Documented By: Admin: 09/01/22 10:09 Dose: 10 mg Documented By: MELANIE Discontinued Medications Hydromorphone HCl (Hydromorphone Inj 0.5 Mg/0.5 Ml Syr) 0.5 mg IV NOW STA Stop: 08/31/22 23:55 Last Admin: 09/01/22 00:01 Dose: 0.5 mg Documented By: Hydromorphone HCl (Hydromorphone Inj 0.5 Mg/0.5 Ml Syr) 0.5 mg IV NOW STA Stop: 09/01/22 04:06 Last Admin: 09/01/22 04:08 Dose: 0.5 mg Documented By: Sodium Chloride (Nss 1000ml) 500 mls @ 999 mls/hr IV .Q31M ONE Stop: 08/31/22 23:23 Last Infusion: 09/01/22 00:04 Dose: 0 mls/hr Documented By: Admin: 08/31/22 23:25 Dose: 999 mls/hr Documented By: Ioversol (Optiray 320 500ml) 116 ml IV ONCE ONE Stop: 09/01/22 01:29 Last Admin: 09/01/22 01:29 Dose: 116 ml Documented By: ABIODUN Morphine Sulfate (Morphine Sulfate 4 Mg/Ml 1 Ml Carp\\Vial) 4 mg IV NOW STA Stop: 08/31/22 22:54 Last Admin: 08/31/22 23:23 Dose: 4 mg Documented By: Morphine Sulfate (Morphine Sulfate 2 Mg/Ml Carp) 2 mg IV NOW STA Stop: 09/01/22 07:30 Last Admin: 09/01/22 08:20 Dose: 2 mg Documented By: FANNY Ondansetron HCl (Ondansetron Inj 2 Mg/Ml 2 Ml Vial) 4 mg IV NOW STA Stop: 08/31/22 22:54 Last Admin: 08/31/22 23:23 Dose: 4 mg Documented By: Tizanidine HCl (Tizanidine Hcl 4 Mg Tablet) 2 mg PO NOW STA Stop: 09/01/22 07:30 Last Admin: 09/01/22 08:15 Dose: 2 mg Documented By: FANNY Medical Decision Making Differential Diagnosis Differential diagnosis includes carotid artery occlusion, carotid artery dissection, cervical strain, fracture, cervical disc disease, lymphadenitis, meningitis, tumor, arterial dissection, thyroiditis, parotitis, mastoiditis, neurologic, TN, PE, pneumothorax, pneumonia, DVT, SVT, as well as other pathologies. Laboratory Data Attestation: I reviewed the patient's lab results. 08/31/22 23:31 08/31/22 23:31 Lab Results 08/31/22 08/31/22 08/31/22 Range/Units 23:31 23:31 23:31 WBC 11.15 H (4.8-10.8) K/ul RBC 3.78 L (4.70-6.10) M/uL Hgb 12.4 L (14.0-18.0) g/dl Hct 36.4 L (42.0-52.0) % MCV 96.3 (80.0-100.0) fL MCH 32.8 (25.0-34.0) pg MCHC 34.1 (32.0-36.0) g/dL RDW Std Deviation 43.4 (36.4-46.3) fL RDW Coeff of Pietro 12.3 (11.5-14.5) % Plt Count 224 (130-400) K/uL MPV 9.8 (9.4-12.4) fL Immature Gran % (Auto) 0.4 % Neut % (Auto) 78.7 % Lymph % (Auto) 10.2 % Page % (Auto) 9.9 % Eos % (Auto) 0.5 % Baso % (Auto) 0.3 % Neut # (Auto) 8.78 H (1.40-6.50) K/uL Lymph # (Auto) 1.14 L (1.2-3.4) K/uL Page # (Auto) 1.10 H (0.11-0.59) K/uL Eos # (Auto) 0.06 (0-0.50) K/uL Baso # (Auto) 0.03 (0-0.2) K/uL Immature Gran # (Auto) 0.04 (0.01-0.20) K/uL PT 12.4 H (9.0-12.0) Seconds INR 1.1 (0.9-1.1) APTT 29.3 (21.0-31.0) Seconds PTT Ratio 1.0 Sodium 134 L (136-145) mmol/L Potassium 4.1 (3.5-5.1) mmol/L Chloride 103 (98-107) mmol/L Carbon Dioxide 25 (21-32) mmol/L Anion Gap 6 (3-11) BUN 21 (6-23) mg/dl Creatinine 1.04 (0.6-1.4) mg/dl Est Cr Clr Drug Dosing 60.1 ml/min Est GFR ( Amer) 77.1 ml/min Est GFR (Non-Af Amer) 66.6 ml/min BUN/Creatinine Ratio 20.2 H (10-20) Glucose 117 H (70-99(Fasting)) mg/dl Estimat Average Glucose mg/dl Hemoglobin A1c (4.5-5.6) % Calcium 9.1 (8.6-10.3) mg/dl Total Bilirubin 0.7 (0.2-1.0) mg/dl AST 16 (13-39) U/L ALT 16 (7-52) U/L Alkaline Phosphatase 85 (34-104) U/L Total Creatine Kinase 79 (30-223) U/L Troponin I High Sens 9.4 (0-20) pg/ml Total Protein 6.4 (6.0-8.3) gm/dl Albumin 3.6 (3.4-5.0) gm/dl Globulin 2.8 (2.5-4.0) gm/dl Albumin/Globulin Ratio 1.3 (0.9-2) SARS-CoV-2, RNA, NAAT (NEGATIVE) 09/01/22 09/01/22 Range/Units 06:14 06:28 WBC (4.8-10.8) K/ul RBC (4.70-6.10) M/uL Hgb (14.0-18.0) g/dl Hct (42.0-52.0) % MCV (80.0-100.0) fL MCH (25.0-34.0) pg MCHC (32.0-36.0) g/dL RDW Std Deviation (36.4-46.3) fL RDW Coeff of Pietro (11.5-14.5) % Plt Count (130-400) K/uL MPV (9.4-12.4) fL Immature Gran % (Auto) % Neut % (Auto) % Lymph % (Auto) % Page % (Auto) % Eos % (Auto) % Baso % (Auto) % Neut # (Auto) (1.40-6.50) K/uL Lymph # (Auto) (1.2-3.4) K/uL Page # (Auto) (0.11-0.59) K/uL Eos # (Auto) (0-0.50) K/uL Baso # (Auto) (0-0.2) K/uL Immature Gran # (Auto) (0.01-0.20) K/uL PT (9.0-12.0) Seconds INR (0.9-1.1) APTT (21.0-31.0) Seconds PTT Ratio Sodium (136-145) mmol/L Potassium (3.5-5.1) mmol/L Chloride (98-107) mmol/L Carbon Dioxide (21-32) mmol/L Anion Gap (3-11) BUN (6-23) mg/dl Creatinine (0.6-1.4) mg/dl Est Cr Clr Drug Dosing ml/min Est GFR ( Amer) ml/min Est GFR (Non-Af Amer) ml/min BUN/Creatinine Ratio (10-20) Glucose (70-99(Fasting)) mg/dl Estimat Average Glucose 117 mg/dl Hemoglobin A1c 5.7 H (4.5-5.6) % Calcium (8.6-10.3) mg/dl Total Bilirubin (0.2-1.0) mg/dl AST (13-39) U/L ALT (7-52) U/L Alkaline Phosphatase (34-104) U/L Total Creatine Kinase (30-223) U/L Troponin I High Sens (0-20) pg/ml Total Protein (6.0-8.3) gm/dl Albumin (3.4-5.0) gm/dl Globulin (2.5-4.0) gm/dl Albumin/Globulin Ratio (0.9-2) SARS-CoV-2, RNA, NAAT NEGATIVE (NEGATIVE) Imaging Data Radiologist's Impression: Chest X-Ray 08/31/22 22:53 SINGLE VIEW CHEST CLINICAL HISTORY: Neck pain. FINDINGS: An AP, portable, upright chest radiograph is compared to study dated 06/07/2021. A 2-lead cardiac pacemaker is unchanged in position. The heart is mildly enlarged. The pulmonary vasculature is noncongested. There is mild elevation of the left hemidiaphragm and bibasilar atelectasis. The lungs and pleural spaces are otherwise clear. No pneumothorax is seen. The skeletal structures are osteopenic. The bony thorax is grossly intact. Arthritic change is seen in the shoulders. IMPRESSION: 1. Cardiomegaly and cardiac pacemaker without radiographic evidence of congestive failure. 2. No airspace consolidation or large pleural effusion is identified. ACT 112: Negative or not required by law. Electronically signed by: Roverto House M.D. 08/31/2022 11:22 PM Exam(s): CT HEAD Without Contrast EXAM: CT Head Without Intravenous Contrast CLINICAL HISTORY: Reason for exam: head and neck pain. TECHNIQUE: Axial computed tomography images of the head/brain without intravenous contrast. CTDI is 36.08 mGy and DLP is 1687.16 mGy-cm. Automated exposure control was utilized for the study. A dose lowering technique was utilized adhering to the principles of ALARA. COMPARISON: MRI brain performed 12/08/2009 FINDINGS: Exam limited due to lack of coronal sagittal reformatted images. Within this constraint: There is no acute intracranial hemorrhage or major vascular territory infarct. No mass effect or midline shift seen. There is prominence of the ventricles and sulci consistent with generalized parenchymal volume loss. Scattered hypodensities throughout the periventricular and subcortical white matter are noted, likely sequela of chronic microvascular changes. The calvarium is intact. Bilateral lens replacements noted. 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 The mastoid air cells are clear. IMPRESSION: Exam limited due to lack of coronal sagittal reformatted images. Within this constraint: No acute intracranial pathology. Generalized parenchymal volume loss and sequela of chronic microvascular ischemic angiopathy. Electronically signed by: Sanchez Medina M.D. 09/01/22 05:45 AM Exam(s): CT C SPINE EXAM: CT Cervical Spine Without Intravenous Contrast CLINICAL HISTORY: Reason for exam: neck pain. TECHNIQUE: Axial computed tomography images of the cervical spine without intravenous contrast. CTDI is 36.08 mGy and DLP is 1687.16 mGy-cm. Automated exposure control was utilized for the study. A dose lowering technique was utilized adhering to the principles of ALARA. COMPARISON: No relevant prior studies available. FINDINGS: Vertebrae: Prominent multilevel cervical spondylosis. Loss of intervertebral disc height and subchondral cyst formation. Trace retrolisthesis of C5 on C6 and C6 on C7 which appears degenerative in etiology. No acute fracture. Discs/spinal canal/neural foramina: At C2-3, uncinate hypertrophy results in moderate right and severe left neuroforaminal stenoses. At C3- 4, uncinate hypertrophy results in severe bilateral neuroforaminal stenoses. Mild spinal canal stenosis seen. At C4-5, there is severe left and moderate right neuroforaminal stenosis with mild spinal canal stenosis. At C5-6, degenerative change results in moderate spinal canal narrowing and severe bilateral neuroforaminal stenoses. At C6-7, degenerative change results in severe bilateral neuroforaminal stenoses and moderate spinal canal stenosis. Soft tissues: Grossly Unremarkable. IMPRESSION: Prominent cervical spondylitic change with multilevel severe neuroforaminal stenoses and moderate spinal canal narrowing as detailed above. Electronically signed by: Sanchez Medina M.D. 09/01/22 05:38 AM Exam(s): CTA NECK With Contrast IV Amt: 116 cc's EXAM: CT Angiography Neck With Intravenous Contrast CLINICAL HISTORY: Reason for exam: neck pain, recent vascular surgery in right leg. TECHNIQUE: Routine carotid CT angiography protocol was performed with intravenous contrast. NASCET criteria using the distal ICAs for comparison were used for evaluation of stenoses. CTDI is 36.08 mGy and DLP is 1687.16 mGy-cm. Automated exposure control was utilized for the study. A dose lowering technique was utilized adhering to the principles of ALARA. MIP reconstructed images were created and reviewed. CONTRAST: Patient received 116 cc's of IV contrast COMPARISON: None. FINDINGS: VASCULATURE: Right common carotid artery: No occlusion or significant stenosis. No dissection. Right internal carotid artery: See below. Right external carotid artery: Unremarkable. No occlusion. Right vertebral artery: No occlusion or significant stenosis. No dissection. Left common carotid artery: No occlusion or significant stenosis. No dissection. Left internal carotid artery: See below. Left external carotid artery: Unremarkable. No occlusion. Left vertebral artery: Mild narrowing within the transverse foramen at C5-6 and moderate to severe narrowing at C6-7 secondary to prominent degenerative changes of the cervical spine. No occlusion. No dissection. Other vasculature: Calcified and noncalcified atherosclerotic plaque within the carotid bifurcations and proximal ICA bilaterally with less than 50% stenosis. NECK: Bones/joints: Multilevel cervical spondylosis, see CT cervical spine for detailed evaluation. Soft tissues: Unremarkable. Lung apices: Clear. CAROTID STENOSIS REFERENCE USING NASCET CRITERIA: % ICA stenosis = (1 - narrowest ICA diameter/diameter of distal cervical ICA) x 100. Mild - <50% stenosis. Moderate - 50-69% stenosis. Severe - 70-94% stenosis. Near occlusion - 95-99% stenosis. Occluded - 100% stenosis. 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 No other significant stenosis in the neck. Prominent multilevel cervical spondylosis detailed on dedicated CT of the cervical spine. Electronically signed by: Sanchez Medina M.D. 09/01/22 05:42 AM Exam(s): US VENOUS BILATERAL LOWER EXTREMITIES EXAM: US Duplex Bilateral Lower Extremities Veins CLINICAL HISTORY: Reason for exam: eval DVT - recent vascular surgery right leg. TECHNIQUE: Real-time duplex ultrasound scan of the bilateral lower extremity veins integrating B-mode two-dimensional vascular structure, Doppler spectral analysis, color flow Doppler imaging and compression. COMPARISON: No relevant prior studies available. FINDINGS: Right deep veins: Unremarkable. No DVT in the right common femoral, femoral, proximal deep femoral or popliteal veins. The veins demonstrate normal color flow, are normally compressible, with normal phasic flow and/or augmentation response. Right superficial veins: Unremarkable. No thrombus in the visualized right great saphenous vein. Left deep veins: Unremarkable. No DVT in the left common femoral, femoral, proximal deep femoral or popliteal veins. The veins demonstrate normal color flow, are normally compressible, with normal phasic flow and/or augmentation response. Left superficial veins: Unremarkable. No thrombus in the visualized left great saphenous vein. Soft tissues: 3.6 cm cystic focus seen in the right popliteal fossa. IMPRESSION: No acute findings in the bilateral lower extremity veins. Electronically signed by: Shaji Mata MD 09/01/22 06:04 AM MDM Narrative I examined the patient. An IV lock was placed and labs were drawn. He was given 500 mL normal saline solution bolus. He was given morphine 4 mg IV and Zofran 4 mg IV. He continued to have pain and was given Dilaudid 0.5 mg IV x 2 with mild continued pain. Continuous media monitor: Order was placed for continuous media monitor. Patient was placed on the media monitor and continuous pulse ox. Patient was noted to be in normal sinus rhythm at an initial rate of 72 bpm per my interpretation. Initial EKG was interpreted by myself and Dr. Lao shows an atrial paced rhythm at 60 bpm with inverted T waves that have replaced nonspecific T wave abnormality in inferior leads. Rep eat EKG was interpreted by myself Dr. Lao and shows normal sinus rhythm at 62 bpm with a nonspecific T wave abnormality. No obvious acute ST or T wave changes. White blood cell count elevated 11.15. Hemoglobin low at 12.4. Platelet count normal. PT elevated at 12.4, but other coags were normal. Sodium 134 and glucose 117, but CMP otherwise normal. High-sensitivity troponin was normal. COVID was negative. Chest x-ray was interpreted by myself and read by radiology as above and shows cardiomegaly and cardiac pacemaker without evidence of congestive failure, consolidation, pleural effusion, or other acute cardiopulmonary etiology. CT scan of the head without contrast was interpreted by myself and read by stat rad as above and shows no acute intracranial pathology, but does show generalized parenchymal volume loss and sequelae of chronic microvascular ischemic angiopathy. CT scan of the cervical spine without contrast was reviewed by myself and read by stat rad as above and shows prominent cervical spondylitic change with multilevel severe neuroforaminal stenosis and moderate spinal canal narrowing. CTA of the neck was reviewed by myself and read by stat rad as above and shows severe narrowing of the left vertebral artery within the transverse foramen at C6-C7 and mild narrowing at C5-C6 secondary to prominent degenerative changes of the cervical spine. No other significant stenosis in the neck. Bilateral lower extremity venous Dopplers showed no evidence for DVT or other acute abnormalities. I had a meaningful discussion about this patient with Dr. Villanueva who agrees with my assessment and the treatment plan. The patient had continued pain despite morphine and 2 doses of Dilaudid. He has been taking oxycodone at home without improvement of his symptoms. The patient does not feel that he can manage his pain at home. Therefore, we feel the patient requires admission for pain control and further work-up. I spoke with the on-call hospitalist who agreed to admit the patient for further evaluation and treatment. Please refer to their dictation for further details. The patient was admitted in stable condition. Impression & Plan Acute neck pain, Anemia, Bilateral calf pain Discharge Plan Visit Data Chief Complaint: Neck Injury/Pain Stated Complaint: POSSIBLE BLOOD CLOT IN NECK/DISCOLORATION ED Provider: Jacinto Lao ED Midlevel Provider: Amber Mauricio Discharge Problem: Acute neck pain, Anemia, Bilateral calf pain Patient Disposition: Admitted As Inpatient Condition: Good Discharge Instructions Interventions: ED Discharge Assessment Last Done: 09/01/22 09:21
[2022-08-31] MEDS ORDERED: ONDANSETRON INJ 2 MG/ML 2 ML VIAL IV STA (22:53)
[2022-08-31] MEDS ORDERED: MoRPHine SULFATE 4 MG/ML 1 ML CARP\\VIAL IV STA (22:53)
[2022-08-31] MEDS ORDERED: SODIUM CHLORIDE 0.9% 1000ML 500 ML IV ONE (22:53)
--- NOTE | 2022-08-31 23:24 | XRay Report ---
SINGLE VIEW CHEST CLINICAL HISTORY: Neck pain. FINDINGS: An AP, portable, upright chest radiograph is compared to study dated 06/07/2021. A 2-lead car diac pacemaker is unchanged in position. The heart is mildly enlarged. The pulmonary vasculature is n oncongested. There is mild elevation of the left hemidiaphragm and bibasilar atelectasis. The lungs a nd pleural spaces are otherwise clear. No pneumothorax is seen. The skeletal structures are osteopeni c. The bony thorax is grossly intact. Arthritic change is seen in the shoulders. IMPRESSION: 1. Cardiomegaly and cardiac pacemaker without radiographic evidence of congestive failure. 2. No airspace consolidation or large pleural effusion is identified. ACT 112: Negative or not required by law. Electronically signed by: Roverto House M.D. 08/31/2022 11:22 PM
[2022-08-31] MEDS ORDERED: HYDROmorphone INJ 0.5 MG/0.5 ML SYR IV STA (23:54)
[2022-08-31 23:59] LABS: Basophils # (auto) 0.03 K/uL (0-0.2); Basophils % (auto) 0.3 %; Eosinophils # (auto) 0.06 K/uL (0-0.50); Eosinophils % (auto) 0.5 %; Hematocrit (blood only) 36.4 % (42.0-52.0); Hemoglobin 12.4 g/dl (14.0-18.0); Immature Granulocytes # (auto) 0.04 K/uL (0.01-0.20); Immature Granulocytes % (auto) 0.4 %; Lymphocytes # (auto) 1.14 K/uL (1.2-3.4); Lymphocytes % (auto) 10.2 %; Mean Corpuscular Hemoglobin 32.8 pg (25.0-34.0); Mean Corpuscular Hgb Conc 34.1 g/dL (32.0-36.0); Mean Corpuscular Volume 96.3 fL (80.0-100.0); Mean Platelet Volume 9.8 fL (9.4-12.4); Monocytes % (auto) 9.9 %; Neutrophils # (auto) 8.78 K/uL (1.40-6.50); Neutrophils % (auto) 78.7 %; Platelet Count 224 K/uL (130-400); RDW Coefficient of Variation 12.3 % (11.5-14.5); RDW Standard Deviation 43.4 fL (36.4-46.3); Red Blood Count 3.78 M/uL (4.70-6.10); White Blood Count 11.15 K/ul (4.8-10.8)
[2022-09-01 00:08] LABS: Albumin Globulin Ratio 1.3 (0.9-2); Albumin Level 3.6 gm/dl (3.4-5.0); BUN Creatinine Ratio 20.2 (10-20); Bilirubin,Total 0.7 mg/dl (0.2-1.0); Calcium 9.1 mg/dl (8.6-10.3); Creatinine Clr Calc Pharmacy 60.1 ml/min; Est GFR (African American) 77.1 ml/min; Est GFR (Non-African American) 66.6 ml/min; Globulin 2.8 gm/dl (2.5-4.0); Potassium 4.1 mmol/L (3.5-5.1); Total Protein 6.4 gm/dl (6.0-8.3)
[2022-09-01 00:13] LABS: Troponin I High Sensitivity 9.4 pg/ml (0-20)
[2022-09-01 00:27] LABS: INR 1.1 (0.9-1.1); Partial Thromboplastin Time 29.3 Seconds (21.0-31.0); Prothrombin Time 12.4 Seconds (9.0-12.0)
[2022-09-01] MEDS ORDERED: OPTIRAY 320 500ml IV ONE (01:28)
[2022-09-01] MEDS ORDERED: HYDROmorphone INJ 0.5 MG/0.5 ML SYR IV STA (04:05)
--- NOTE | 2022-09-01 05:39 | CT Scan Report ---
Exam(s): CT C SPINE EXAM: CT Cervical Spine Without Intravenous Contrast CLINICAL HISTORY: Reason for exam: neck pain. TECHNIQUE: Axial computed tomography images of the cervical spine without intravenous contrast. CTDI is 36.08 mGy and DLP is 1687.16 mGy-cm. Automated exposure control was utilized for the study. A dose lowering technique was utilized adhering to the principles of ALARA. COMPARISON: No relevant prior studies available. FINDINGS: Vertebrae: Prominent multilevel cervical spondylosis. Loss of intervertebral disc height and subchondral cyst formation. Trace retrolisthesis of C5 on C6 and C6 on C7 which appears degenerative in etiology. No acute fracture. Discs/spinal canal/neural foramina: At C2-3, uncinate hypertrophy results in moderate right and severe left neuroforaminal stenoses. At C3- 4, uncinate hypertrophy results in severe bilateral neuroforaminal stenoses. Mild spinal canal stenosis seen. At C4-5, there is severe left and moderate right neuroforaminal stenosis with mild spinal canal stenosis. At C5-6, degenerative change results in moderate spinal canal narrowing and severe bilateral neuroforaminal stenoses. At C6-7, degenerative change results in severe bilateral neuroforaminal stenoses and moderate spinal canal stenosis. Soft tissues: Grossly Unremarkable. IMPRESSION: Prominent cervical spondylitic change with multilevel severe neuroforaminal stenoses and moderate spinal canal narrowing as detailed above. Electronically signed by: Sanchez Medina M.D. 09/01/22 05:38 AM
--- NOTE | 2022-09-01 05:44 | CT Scan Report ---
Exam(s): CTA NECK With Contrast IV Amt: 116 cc's EXAM: CT Angiography Neck With Intravenous Contrast CLINICAL HISTORY: Reason for exam: neck pain, recent vascular surgery in right leg. TECHNIQUE: Routine carotid CT angiography protocol was performed with intravenous contrast. NASCET criteria using the distal ICAs for comparison were used for evaluation of stenoses. CTDI is 36.08 mGy and DLP is 1687.16 mGy-cm. Automated exposure control was utilized for the study. A dose lowering technique was utilized adhering to the principles of ALARA. MIP reconstructed images were created and reviewed. CONTRAST: Patient received 116 cc's of IV contrast COMPARISON: None. FINDINGS: VASCULATURE: Right common carotid artery: No occlusion or significant stenosis. No dissection. Right internal carotid artery: See below. Right external carotid artery: Unremarkable. No occlusion. Right vertebral artery: No occlusion or significant stenosis. No dissection. Left common carotid artery: No occlusion or significant stenosis. No dissection. Left internal carotid artery: See below. Left external carotid artery: Unremarkable. No occlusion. Left vertebral artery: Mild narrowing within the transverse foramen at C5-6 and moderate to severe narrowing at C6-7 secondary to prominent degenerative changes of the cervical spine. No occlusion. No dissection. Other vasculature: Calcified and noncalcified atherosclerotic plaque within the carotid bifurcations and proximal ICA bilaterally with less than 50% stenosis. NECK: Bones/joints: Multilevel cervical spondylosis, see CT cervical spine for detailed evaluation. Soft tissues: Unremarkable. Lung apices: Clear. CAROTID STENOSIS REFERENCE USING NASCET CRITERIA: % ICA stenosis = (1 - narrowest ICA diameter/diameter of distal cervical ICA) x 100. Mild - <50% stenosis. Moderate - 50-69% stenosis. Severe - 70-94% stenosis. Near occlusion - 95-99% stenosis. Occluded - 100% stenosis. 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 No other significant stenosis in the neck. Prominent multilevel cervical spondylosis detailed on dedicated CT of the cervical spine. Electronically signed by: Sanchez Medina M.D. 09/01/22 05:42 AM
--- NOTE | 2022-09-01 05:46 | CT Scan Report ---
Exam(s): CT HEAD Without Contrast EXAM: CT Head Without Intravenous Contrast CLINICAL HISTORY: Reason for exam: head and neck pain. TECHNIQUE: Axial computed tomography images of the head/brain without intravenous contrast. CTDI is 36.08 mGy and DLP is 1687.16 mGy-cm. Automated exposure control was utilized for the study. A dose lowering technique was utilized adhering to the principles of ALARA. COMPARISON: MRI brain performed 12/08/2009 FINDINGS: Exam limited due to lack of coronal sagittal reformatted images. Within this constraint: There is no acute intracranial hemorrhage or major vascular territory infarct. No mass effect or midline shift seen. There is prominence of the ventricles and sulci consistent with generalized parenchymal volume loss. Scattered hypodensities throughout the periventricular and subcortical white matter are noted, likely sequela of chronic microvascular changes. The calvarium is intact. Bilateral lens replacements noted. 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 The mastoid air cells are clear. IMPRESSION: Exam limited due to lack of coronal sagittal reformatted images. Within this constraint: No acute intracranial pathology. Generalized parenchymal volume loss and sequela of chronic microvascular ischemic angiopathy. Electronically signed by: Sanchez Medina M.D. 09/01/22 05:45 AM
--- NOTE | 2022-09-01 06:05 | Ultrasound Report ---
Exam(s): US VENOUS BILATERAL LOWER EXTREMITIES EXAM: US Duplex Bilateral Lower Extremities Veins CLINICAL HISTORY: Reason for exam: eval DVT - recent vascular surgery right leg. TECHNIQUE: Real-time duplex ultrasound scan of the bilateral lower extremity veins integrating B-mode two-dimensional vascular structure, Doppler spectral analysis, color flow Doppler imaging and compression. COMPARISON: No relevant prior studies available. FINDINGS: Right deep veins: Unremarkable. No DVT in the right common femoral, femoral, proximal deep femoral or popliteal veins. The veins demonstrate normal color flow, are normally compressible, with normal phasic flow and/or augmentation response. Right superficial veins: Unremarkable. No thrombus in the visualized right great saphenous vein. Left deep veins: Unremarkable. No DVT in the left common femoral, femoral, proximal deep femoral or popliteal veins. The veins demonstrate normal color flow, are normally compressible, with normal phasic flow and/or augmentation response. Left superficial veins: Unremarkable. No thrombus in the visualized left great saphenous vein. Soft tissues: 3.6 cm cystic focus seen in the right popliteal fossa. IMPRESSION: No acute findings in the bilateral lower extremity veins. Electronically signed by: Shaji Mata MD 09/01/22 06:04 AM
[2022-09-01] MEDS ORDERED: PROMETHAZINE HCL 6.25 MG in SODIUM CHLORIDE 0.9% 50 ML IV PRN (06:16)
[2022-09-01] MEDS ORDERED: ACETAMINOPHEN 325 MG TAB PO PRN (06:16)
[2022-09-01] MEDS ORDERED: MoRPHine SULFATE 2 MG/ML CARP IV STA (07:29)
[2022-09-01] MEDS ORDERED: tiZANidine HCL 4 MG TABLET PO STA ×2 (07:29→21:24)
--- NOTE | 2022-09-01 07:40 | History & Physical Report ---
Date of Service September 01, 2022 Assessment & Plan (1) Anemia: Plan: Hemoglobin noted to be 12 since 2 weeks ago History PVD status post recent angioplasty currently on Eliquis due to concerns for cardioembolism Occult GI bleed, patient without abdominal complaints, history GERD/diverticulosis, positive FOBT at the ER neck pain of acute onset Musculoskeletal SSS status post PPM, paced rhythm History of CAD as per records hypertension, stable hyperaldosteronism on eplerenone hyperlipidemia/statin intolerance, patient also hesitant to take Ezetimibe rx secondary to adverse reaction concerns hypothyroidism, recent outpatient within normal limits, patient currently not on maintenance medications prediabetes, recent hemoglobin A1c on file hx RLS hx GERD, diverticulosis, past tobacco abuse Medical telemetry Anemia work-up, transfuse PRBC if hemoglobin less than 8 and or for symptomatic anemia GI consult Re: occult GI bleed Resume Plavix and Eliquis once cleared by GI given patient's vascular issues Analgesia for neck pain Pain management consult if without improvement Update hemoglobin A1c DVT prophylaxis. TEDS while Eliquis on hold, SCDs contraindicated with PVD Full code Patient requesting updates from providers. Ami Ortiz, contact #[phone]. Text document was generated using [employer] voice recognition software. It may contain grammatical or spelling errors. Kindly contact undersigned for clarification of any documentation item in question. History of Present Illness Chief Complaint: Neck pain Primary Care Provider: Jonathon Aparicio DO History obtained from patient, family, and records. Medical history significant for SSS status post PPM, hypertension, hyperaldosteronism as per records, CAD, PVD status post recent angioplasty currently on Eliquis, hyperlipidemia, statin intolerance, hypothyroidism, prediabetes, RLS, GERD, diverticulosis, mood disorder, past tobacco abuse. Last [facility] confinement February 2021 for chest pain attributed to GERD. Patient was at [facility] last 08/17/22 for RLE claudication secondary to right popliteal artery occlusion due to probable cardiogenic involvement status post elective mechanical thrombectomy and post thrombolytic therapy of the right popliteal artery with stent placement of stents.patient discharged on Eliquis postprocedure. Overnight [facility] readmission a few days later for postop discomfort. Hemoglobin noted to be 12.3 from normal baseline during confinement. Patient denies black/bloody stools. Patient instructed to take statin medications postprocedure. Patient did so with hesitation after bad reaction described as generalized pain after taking statin 10 years ago. Few days ago, patient noted achiness and myalgias similar to statin reaction from 10 years ago. Patient stopped statin Rx. Gradual improvement of symptoms. Patient seen at PCP's office yesterday. Outpatient CPK noted to be within normal limits. Body aches later gone patient not assessed worsening neck pain. No radiation to the arms or legs. No arm or leg weakness/numbness. No incontinence symptoms. No recollection of trauma or change in sleeping position. No headache, no chest pain, no SOB, no abdominal pain complaints. Intermittent leg cramps noted. Intractable neck discomfort at the ER Medical History as above 2014 colonoscopy showed diverticulosis Surgical History : PPM, thrombectomy, femoropopliteal artery revascularization/angioplasty, hernia repair, appendectomy, right neck lymph node removal Family History : Alcoholism, heart disease, stroke Personal/Social history : Past tobacco abuse, occasional EtOH intake, retired clinical psychologist Allergies Allergy/AdvReac Type Severity Reaction Status Date / Time spironolactone Allergy Intermediate RASH Verified 08/31/22 23:24 blue dye Allergy Unknown Unknown Verified 09/01/22 06:21 (bright blue HCF) propofol AdvReac Severe delerium Verified 09/01/22 06:21 atorvastatin [From Lipitor] AdvReac Intermediate GENERALIZED Verified 08/31/22 23:24 ACHES & PAINS baclofen AdvReac Intermediate ANXIETY Verified 08/31/22 23:24 Benzodiazepines AdvReac Intermediate VERSED--RLS, Verified 08/31/22 23:24 ANXIETY clioquinol AdvReac Intermediate ANXIETY Verified 08/31/22 23:24 diphenhydramine AdvReac Intermediate AGGRAVATES Verified 08/31/22 23:24 RLS escitalopram AdvReac Intermediate CAUSES RLS Verified 08/31/22 23:24 fluoxetine AdvReac Intermediate CAUSE RLS Verified 08/31/22 23:24 fluvoxamine AdvReac Intermediate CAUSES RLS Verified 08/31/22 23:24 guaifenesin AdvReac Intermediate Anxiety Verified 08/31/22 23:24 hydrocortisone AdvReac Intermediate ANXIETY Verified 08/31/22 23:24 lovastatin AdvReac Intermediate GENERALIZED Verified 08/31/22 23:24 ACHES & PAINS nystatin AdvReac Intermediate Muscle Pain Verified 08/31/22 23:24 paroxetine AdvReac Intermediate CAUSES RLS Verified 08/31/22 23:24 pseudoephedrine AdvReac Intermediate AGGRAVATES Verified 08/31/22 23:24 RLS rosuvastatin AdvReac Intermediate MYALGIAS Verified 08/31/22 23:24 simvastatin [From Zocor] AdvReac Intermediate GENERALIZED Verified 08/31/22 23:24 ACHES & PAIN zolpidem AdvReac Intermediate ANXIETY Verified 08/31/22 23:24 Home Medications Medication Instructions Recorded Confirmed Type pramipexole 1.5 mg tablet 3 mg PO HS 03/22/21 08/31/22 History carboxymethylcellulose sodium 0.5 1 drp ophthalmic (eye) QID 06/07/21 08/31/22 History % eye drops apixaban 5 mg tablet (Eliquis) 5 mg PO BID 08/31/22 08/31/22 History cholecalciferol (vitamin D3) 10 10 mcg PO DAILY 08/31/22 08/31/22 History mcg (400 unit) capsule (Vitamin D3) clopidogrel 75 mg tablet 75 mg PO DAILY 08/31/22 08/31/22 History eplerenone 50 mg tablet 50 mg PO BID 08/31/22 08/31/22 History ezetimibe 10 mg tablet 10 mg PO QAM 08/31/22 08/31/22 History finasteride 5 mg tablet 5 mg PO DAILY 08/31/22 08/31/22 History metoprolol succinate 25 mg 12.5 mg PO DAILY 08/31/22 08/31/22 History tablet,extended release 24 hr oxycodone 5 mg tablet 5 mg PO Q4H PRN Pain 08/31/22 08/31/22 History pravastatin 20 mg tablet 20 mg PO HS 08/31/22 08/31/22 History Past Med/Surg History Medical History BPH (benign prostatic hyperplasia) CAD (coronary artery disease) GERD (gastroesophageal reflux disease) HLD (hyperlipidemia) HTN (hypertension) Hyperaldosteronism RLS (restless legs syndrome) Surgical History History of appendectomy History of inguinal hernia repair History of tonsillectomy and adenoidectomy Family History Father Coronary heart disease Stroke Social History Smoking Status: Never smoker Hx Alcohol Use: Yes Alcohol type: wine Hx Substance Use: No Preferred Language: Estonian Communication Ability: Effective Occupational Therapy Assistant Required: No Beliefs That Will Affect Care: None Current Living Situation: Spouse Feels Safe at Home: Yes Assistive Devices: None Review of Systems Review of Systems: As per HPI, all other systems reviewed and negative Physical Exam Physical Exam: GENERAL: uncomfortable, pleasant, no respiratory distress SKIN: Pallor, warm HEENT: Pale palpebral conjunctivae, no ptosis, dry buccal mucosa NECK : Limited cervical range of motion, minimal cervical tenderness CHEST : CTA, no tenderness HEART : RRR, no obvious murmurs ABDOMEN: no distention, nontender RECTAL : Intact sphincter, brown stool (FOBT positive) EXTREMITIES : Minimal LE swelling, no LE tenderness, no other conspicuous deformities noted NEUROLOGIC : Coherent, no facial asymmetry, no other gross focality Results & Data Results & Data Vital Signs (Past 12 Hours) Vital Signs Temp Pulse Resp BP Pulse Ox O2 Del Method 09/01/22 06:30 60 17 94 Room Air 09/01/22 06:30 130/88 09/01/22 05:00 60 15 93 09/01/22 05:00 125/76 09/01/22 04:34 117/77 09/01/22 04:30 60 13 93 Room Air 09/01/22 04:26 60 09/01/22 04:00 60 17 95 Room Air 09/01/22 04:00 136/88 09/01/22 03:30 65 16 94 Room Air 09/01/22 03:30 128/83 09/01/22 03:00 68 16 91 Room Air 09/01/22 03:00 128/80 09/01/22 02:30 73 17 90 Room Air 09/01/22 02:30 124/79 09/01/22 01:31 122/80 09/01/22 01:31 70 17 94 Room Air 09/01/22 01:20 73 17 09/01/22 00:00 64 20 08/31/22 23:50 64 21 05/05/23 23:08 66 18 140/78 95 08/31/22 23:08 65 08/31/22 22:29 37.4 C 66 18 144/92 H 98 Room Air Laboratory Results Laboratory Results WBC 11.15 K/ul (4.8-10.8) H 08/31/22 23: RBC 3.78 M/uL (4.70-6.10) L 08/31/22: Hgb 12.4 g/dl (14.0-18.0) L 08/31/22 23: Hct 36.4 % (42.0-52.0) L 08/31/22: MCV 96.3 fL (80.0-100.0) 08/31/22: MCH 32.8 pg (25.0-34.0) 08/31/22: MCHC 34.1 g/dL (32.0-36.0) 08/31/22: RDW Std Deviation 43.4 fL (36.4-46.3) 08/31/22: RDW Coeff of Pietro 12.3 % (11.5-14.5) 08/31/22 Plt Count 224 K/uL (130-400) 08/31/22 MPV 9.8 fL (9.4-12.4) 08/31/22: Immature Gran % (Auto) 0.4 % 08/31/22 23: Neut % (Auto) 78.7 % 08/31/22: Lymph % (Auto) 10.2 % 08/31/22: Grimes % (Auto) 9.9 % 08/31/22: Eos % (Auto) 0.5 % 08/31/22: Baso % (Auto) 0.3 % 08/31/22: Neut # (Auto) 8.78 K/uL (1.40-6.50) H 08/31/22: Lymph # (Auto) 1.14 K/uL (1.2-3.4) L 08/31/22: Grimes # (Auto) 1.10 K/uL (0.11-0.59) H 08/31/22 23:31 Eos # (Auto) 0.06 K/uL (0-0.50) 08/31/22 23: Baso # (Auto) 0.03 K/uL (0-0.2) 08/31/22 23: Immature Gran # (Auto) 0.04 K/uL (0.01-0.20) 08/31/22 23: PT 12.4 Seconds (9.0-12.0) H 08/31/22 23: INR 1.1 (0.9-1.1) 08/31/22 23: APTT 29.3 Seconds (21.0-31.0) 08/31/22 23: PTT Ratio 1.0 08/31/22: Sodium 134 mmol/L (136-145) L 08/31/22: Potassium 4.1 mmol/L (3.5-5.1) 08/31/22: Chloride 103 mmol/L (98-107) 08/31/22 23: Carbon Dioxide 25 mmol/L (21-32) 08/31/22 23: Anion Gap 6 (3-11) 08/31/22 23: BUN 21 mg/dl (6-23) 08/31/22: Creatinine 1.04 mg/dl (0.6-1.4) 08/31/22 23: Est Cr Clr Drug Dosing 60.1 ml/min 08/31/22 23: Est GFR ( Amer) 77.1 ml/min 08/31/22 23: Est GFR (Non-Af Amer) 66.6 ml/min 08/31/22 23: BUN/Creatinine Ratio 20.2 (10-20) H 08/31/22 23: Glucose 117 mg/dl (70-99(Fasting)) H 08/31/22 23: Calcium 9.1 mg/dl (8.6-10.3) 08/31/22: Total Bilirubin 0.7 mg/dl (0.2-1.0) 08/31/22 23: AST 16 U/L (13-39) 08/31/22: ALT 16 U/L (7-52) 08/31/22 23:31 Alkaline Phosphatase 85 U/L (34-104) 08/31/22 23:31 Total Creatine Kinase 79 U/L (30-223) 08/31/22 23:31 Troponin I High Sens 9.4 pg/ml (0-20) 08/31/22 23:31 Total Protein 6.4 gm/dl (6.0-8.3) 08/31/22 23:31 Albumin 3.6 gm/dl (3.4-5.0) 08/31/22 23:31 Globulin 2.8 gm/dl (2.5-4.0) 08/31/22 23:31 Albumin/Globulin Ratio 1.3 (0.9-2) 08/31/22 23:31 SARS-CoV-2, RNA, NAAT NEGATIVE (NEGATIVE) 09/01/22 06:[address] 08/31/22 22:53 Exam(s): CT C SPINE EXAM: CT Cervical Spine Without Intravenous Contrast CLINICAL HISTORY: Reason for exam: neck pain. TECHNIQUE: Axial computed tomography images of the cervical spine without intravenous contrast. CTDI is 36.08 mGy and DLP is 1687.16 mGy-cm. Automated exposure control was utilized for the study. A dose lowering technique was utilized adhering to the principles of ALARA. COMPARISON: No relevant prior studies available. FINDINGS: Vertebrae: Prominent multilevel cervical spondylosis. Loss of intervertebral disc height and subchondral cyst formation. Trace retrolisthesis of C5 on C6 and C6 on C7 which appears degenerative in etiology. No acute fracture. Discs/spinal canal/neural foramina: At C2-3, uncinate hypertrophy results in moderate right and severe left neuroforaminal stenoses. At C3- 4, uncinate hypertrophy results in severe bilateral neuroforaminal stenoses. Mild spinal canal stenosis seen. At C4-5, there is severe left and moderate right neuroforaminal stenosis with mild spinal canal stenosis. At C5-6, degenerative change results in moderate spinal canal narrowing and severe bilateral neuroforaminal stenoses. At C6-7, degenerative change results in severe bilateral neuroforaminal stenoses and moderate spinal canal stenosis. Soft tissues: Grossly Unremarkable. IMPRESSION: Prominent cervical spondylitic change with multilevel severe neuroforaminal stenoses and moderate spinal canal narrowing as detailed above. Electronically signed by: Sanchez Medina M.D. 09/01/22 05:38 AM Chest X-Ray 08/31/22 22:53 SINGLE VIEW CHEST CLINICAL HISTORY: Neck pain. FINDINGS: An AP, portable, upright chest radiograph is compared to study dated 06/07/2021. A 2-lead cardiac pacemaker is unchanged in position. The heart is mildly enlarged. The pulmonary vasculature is noncongested. There is mild elevation of the left hemidiaphragm and bibasilar atelectasis. The lungs and pleural spaces are otherwise clear. No pneumothorax is seen. The skeletal structures are osteopenic. The bony thorax is grossly intact. Arthritic change is seen in the shoulders. IMPRESSION: 1. Cardiomegaly and cardiac pacemaker without radiographic evidence of congestive failure. 2. No airspace consolidation or large pleural effusion is identified. ACT 112: Negative or not required by law. Electronically signed by: Roverto House M.D. 08/31/2022 11:[address] 08/31/22 22:53 Exam(s): CT HEAD Without Contrast EXAM: CT Head Without Intravenous Contrast CLINICAL HISTORY: Reason for exam: head and neck pain. TECHNIQUE: Axial computed tomography images of the head/brain without intravenous contrast. CTDI is 36.08 mGy and DLP is 1687.16 mGy-cm. Automated exposure control was utilized for the study. A dose lowering technique was utilized adhering to the principles of ALARA. COMPARISON: MRI brain performed 12/08/2009 FINDINGS: Exam limited due to lack of coronal sagittal reformatted images. Within this constraint: There is no acute intracranial hemorrhage or major vascular territory infarct. No mass effect or midline shift seen. There is prominence of the ventricles and sulci consistent with generalized parenchymal volume loss. Scattered hypodensities throughout the periventricular and subcortical white matter are noted, likely sequela of chronic microvascular changes. The calvarium is intact. Bilateral lens replacements noted. 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 The mastoid air cells are clear. IMPRESSION: Exam limited due to lack of coronal sagittal reformatted images. Within this constraint: No acute intracranial pathology. Generalized parenchymal volume loss and sequela of chronic microvascular ischemic angiopathy. Electronically signed by: Sanchez Medina M.D. 09/01/22 05:45 AM Neck CTA 08/31/22 22:53 Exam(s): CTA NECK With Contrast IV Amt: 116 cc's EXAM: CT Angiography Neck With Intravenous Contrast CLINICAL HISTORY: Reason for exam: neck pain, recent vascular surgery in right leg. TECHNIQUE: Routine carotid CT angiography protocol was performed with intravenous contrast. NASCET criteria using the distal ICAs for comparison were used for evaluation of stenoses. CTDI is 36.08 mGy and DLP is 1687.16 mGy-cm. Automated exposure control was utilized for the study. A dose lowering technique was utilized adhering to the principles of ALARA. MIP reconstructed images were created and reviewed. CONTRAST: Patient received 116 cc's of IV contrast COMPARISON: None. FINDINGS: VASCULATURE: Right common carotid artery: No occlusion or significant stenosis. No dissection. Right internal carotid artery: See below. Right external carotid artery: Unremarkable. No occlusion. Right vertebral artery: No occlusion or significant stenosis. No dissection. Left common carotid artery: No occlusion or significant stenosis. No dissection. Left internal carotid artery: See below. Left external carotid artery: Unremarkable. No occlusion. Left vertebral artery: Mild narrowing within the transverse foramen at C5-6 and moderate to severe narrowing at C6-7 secondary to prominent degenerative changes of the cervical spine. No occlusion. No dissection. Other vasculature: Calcified and noncalcified atherosclerotic plaque within the carotid bifurcations and proximal ICA bilaterally with less than 50% stenosis. NECK: Bones/joints: Multilevel cervical spondylosis, see CT cervical spine for detailed evaluation. Soft tissues: Unremarkable. Lung apices: Clear. CAROTID STENOSIS REFERENCE USING NASCET CRITERIA: % ICA stenosis = (1 - narrowest ICA diameter/diameter of distal cervical ICA) x 100. Mild - <50% stenosis. Moderate - 50-69% stenosis. Severe - 70-94% stenosis. Near occlusion - 95-99% stenosis. Occluded - 100% stenosis. 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 No other significant stenosis in the neck. Prominent multilevel cervical spondylosis detailed on dedicated CT of the cervical spine. Electronically signed by: Sanchez Medina M.D. 09/01/22 05:42 AM Venous Doppler Study 08/31/22 22:53 Exam(s): US VENOUS BILATERAL LOWER EXTREMITIES EXAM: US Duplex Bilateral Lower Extremities Veins CLINICAL HISTORY: Reason for exam: eval DVT - recent vascular surgery right leg. TECHNIQUE: Real-time duplex ultrasound scan of the bilateral lower extremity veins integrating B-mode two-dimensional vascular structure, Doppler spectral analysis, color flow Doppler imaging and compression. COMPARISON: No relevant prior studies available. FINDINGS: Right deep veins: Unremarkable. No DVT in the right common femoral, femoral, proximal deep femoral or popliteal veins. The veins demonstrate normal color flow, are normally compressible, with normal phasic flow and/or augmentation response. Right superficial veins: Unremarkable. No thrombus in the visualized right great saphenous vein. Left deep veins: Unremarkable. No DVT in the left common femoral, femoral, proximal deep femoral or popliteal veins. The veins demonstrate normal color flow, are normally compressible, with normal phasic flow and/or augmentation response. Left superficial veins: Unremarkable. No thrombus in the visualized left great saphenous vein. Soft tissues: 3.6 cm cystic focus seen in the right popliteal fossa. IMPRESSION: No acute findings in the bilateral lower extremity veins. Electronically signed by: Shaji Mata MD 09/01/22 06:04 AM Diagnostic Findings EKG as per my interpretation : Rate 60, paced rhythm
[2022-09-01] MEDS ORDERED: SODIUM CHLORIDE 0.9% 1000ML 1,000 ML IV ONE (07:46)
[2022-09-01] MEDS ORDERED: LORazepam 0.5 MG TAB PO PRN (07:50)
[2022-09-01] MEDS ORDERED: MoRPHine SULFATE 4 MG/ML 1 ML CARP\\VIAL IV PRN (07:53)
[2022-09-01 08:33] LABS: Estimated Average Glucose 117 mg/dl; Hemoglobin A1C 5.7 % (4.5-5.6)
[2022-09-01 08:45] LABS: Basophils # (auto) 0.02 K/uL (0-0.2); Basophils % (auto) 0.2 %; Eosinophils # (auto) 0.05 K/uL (0-0.50); Eosinophils % (auto) 0.5 %; Hematocrit (blood only) 36.6 % (42.0-52.0); Hemoglobin 12.3 g/dl (14.0-18.0); Immature Granulocytes # (auto) 0.04 K/uL (0.01-0.20); Immature Granulocytes % (auto) 0.4 %; Lymphocytes # (auto) 1.24 K/uL (1.2-3.4); Lymphocytes % (auto) 12.7 %; Mean Corpuscular Hemoglobin 32.5 pg (25.0-34.0); Mean Corpuscular Hgb Conc 33.6 g/dL (32.0-36.0); Mean Corpuscular Volume 96.6 fL (80.0-100.0); Mean Platelet Volume 9.7 fL (9.4-12.4); Monocytes # (auto) 1.21 K/uL (0.11-0.59); Monocytes % (auto) 12.4 %; Neutrophils % (auto) 73.8 %; Platelet Count 215 K/uL (130-400); RDW Coefficient of Variation 12.3 % (11.5-14.5); RDW Standard Deviation 43.5 fL (36.4-46.3); Red Blood Count 3.79 M/uL (4.70-6.10); Reticulocyte % 1.6 % (0.5-2.0); Reticulocytes # 0.06 10^6/uL (0.02-0.10); White Blood Count 9.76 K/ul (4.8-10.8)
[2022-09-01 09:02] LABS: BUN Creatinine Ratio 15.6 (10-20); Calcium 8.8 mg/dl (8.6-10.3); Creatinine Clr Calc Pharmacy 65.1 ml/min; Est GFR (Non-African American) 73.3 ml/min; Potassium 4.1 mmol/L (3.5-5.1)
[2022-09-01 09:20] LABS: Ferritin 252.4 ng/ml (8-388); Partial Thromboplastin Time 29.3 Seconds (21.0-31.0)
[2022-09-01] MEDS ORDERED: EPLERENONE 50 MG PO SCH (09:41)
[2022-09-01] MEDS: oxyCODONE HCL IR 5 MG TAB (IMMEDIATE RELEASE) PO PRN ×3 (10:09→21:27)
[2022-09-01] MEDS: FINASTERIDE 5 MG TAB PO SCH (10:25)
[2022-09-01] MEDS: METOPROLOL SUCC 25MG EXT REL TAB PO SCH (10:25)
[2022-09-01] MEDS: EPLERENONE 25 MG PO SCH ×2 (12:28→21:26)
[2022-09-01 12:29] LABS: Appearance Urine Clear (Clear); Bilirubin Urine Negative (Negative); Blood Urine Negative (Negative); Color Urine Yellow; Glucose Urine UA Negative (Negative); Ketones Urine Negative (Negative); Leukocyte Esterase Urine Negative (Negative); Nitrite Urine Negative (Negative); Protein Urine Negative (Negative); Specific Gravity Urine 1.015 (1.000-1.030); Urobilinogen Urine Negative (Negative)
--- NOTE | 2022-09-01 13:20 | Electrocardiogram Report ---
Test Reason : Blood Pressure : / mmHG Vent. Rate : 060 BPM Atrial Rate : 060 BPM P-R Int : 184 ms QRS Dur : 094 ms QT Int : 416 ms P-R-T Axes : 000 -27 -31 degrees QTc Int : 416 ms Atrial-paced rhythm Nonspecific T wave abnormality Abnormal ECG When compared with ECG of 07-JUN-2021 13:51, Inverted T waves have replaced nonspecific T wave abnormality in Inferior leads Confirmed by Chuck Karimi ([id number]) on 09/01/2022 1:20:21 PM Referred By: REFERRED SELF Confirmed By:Chuck Karimi
--- NOTE | 2022-09-01 13:21 | Electrocardiogram Report ---
Test Reason : Blood Pressure : / mmHG Vent. Rate : 062 BPM Atrial Rate : 062 BPM P-R Int : 166 ms QRS Dur : 092 ms QT Int : 422 ms P-R-T Axes : 057 -24 -29 degrees QTc Int : 428 ms Normal sinus rhythm Nonspecific T wave abnormality Abnormal ECG When compared with ECG of 31-AUG-2022 23:29, (unconfirmed) Sinus rhythm has replaced Electronic atrial pacemaker Confirmed by Chuck Karimi ([id number]) on 09/01/2022 1:20:35 PM Referred By: REFERRED SELF Confirmed By:Chuck Karimi
[2022-09-01] MEDS: LIDOCAINE 5% 1 PATCH TD SCH (14:25)
--- NOTE | 2022-09-01 15:04 | Hospitalist Progress Note ---
Date of Service September 01, 2022 Assessment & Plan (1) Anemia: Plan: Hemoglobin noted to be 12 since 2 weeks ago History PVD status post recent angioplasty currently on Eliquis due to concerns for cardioembolism Occult GI bleed, patient without abdominal complaints, history GERD/diverticulosis, positive FOBT at the ER neck pain of acute onset Musculoskeletal SSS status post PPM, paced rhythm History of CAD as per records hypertension, stable hyperaldosteronism on eplerenone hyperlipidemia/statin intolerance, patient also hesitant to take Ezetimibe rx secondary to adverse reaction concerns hypothyroidism, recent outpatient within normal limits, patient currently not on maintenance medications prediabetes, recent hemoglobin A1c on file hx RLS hx GERD, diverticulosis, past tobacco abuse Medical telemetry Anemia work-up, transfuse PRBC if hemoglobin less than 8 and or for symptomatic anemia GI consult Re: occult GI bleed Resume Plavix and Eliquis once cleared by GI given patient's vascular issues Analgesia for neck pain Pain management consult if without improvement Update hemoglobin A1c DVT prophylaxis. TEDS while Eliquis on hold, SCDs contraindicated with PVD Full code Patient requesting updates from providers. Ami Ortiz, contact #[phone]. Text document was generated using [employer] voice recognition software. It may contain grammatical or spelling errors. Kindly contact undersigned for clarification of any documentation item in question. (2) Intractable pain: Plan: 82-year-old male with history of recent right femoral-popliteal artery vascularization/thrombectomy status post stent placement and angioplasty August 17, 2022, Paroxysmal atrial fibrillation on Eliquis, status post pacemaker placement, etc. presenting with persistent severe neck pain which started yesterday. Persistent cervical pain Underlying cervical stenosis, neuroforaminal stenosis -- Unclear trigger of severe pain Per family, patient cleaned their car 1 to 2 days prior to onset of severe pain --Required IV Dilaudid, etc. at the ER to control pain -- CT cervical spine: Severe narrowing of the left vertebral artery within the transverse foramen at C6-7 and mild narrowing at C5-6 secondary to prominent degenerative changes of the cervical spine. No other significant stenosis in the neck. -- Lidoderm patch, ice packs As needed oxycodone and Dilaudid for pain control Dr. Ham consulted PT and OT evaluation Left vertebral artery narrowing, severe --Asymptomatic No neurologic symptoms -- Neurology consulted --Continue Eliquis, Plavix Positive Hemoccult blood test -- Noted at the ER -- Hemoglobin baseline 14 After recent surgery, August 19, Hg 12 Hemoglobin at the ER 12 -- Colonoscopy 2014 revealing internal hemorrhoids and diverticulosis -- Anemia panel revealing iron 16 -- Decrease in hemoglobin likely related to recent vascular surgery Patient denies melena or hematochezia -- Discussed with GI service -- We will advance diet, resume Eliquis and Plavix given patient's extensive cardiovascular history -- Continue to trend hemoglobin daily, patient advised to report any melena or hematochezia immediately Recent right femoral-popliteal artery revascularization/thrombectomy, status post stent placement and angioplasty -- Site healing well except for hematoma noted on the thigh which is resolving per patient's -- Continue Plavix Did not tolerate statin patient was started after surgery, due to muscle pain CK level normal History of paroxysmal atrial fibrillation, status post pacemaker placement --Currently in sinus rhythm Continue eplerenone, Eliquis DVT prophylaxis, currently on Eliquis Disposition PT and OT evaluation Lives at home with his plan of care discussed with patient, Grace, daughter Danica at the bedside in detail and at length all questions answered they are understanding, agreeable, comfortable with the plan of care Admission and Anticipated Discharge Date Admission Date: September 01, 2022 Subjective Follow-up for severe neck pain, etc. Seen resting in bed, not in distress Patient's and daughter at the bedside visiting Patient states neck pain is somewhat improved after receiving oxycodone earlier today Still having severe neck pain with minimal movement Denies weakness or numbness of the extremities, dysphagia or any other neurologic deficits No abdominal pain, nausea, melena or hematochezia No other new symptom Review of Systems Review of Systems: all noted and negative except for above Physical Exam Physical Exam: General- oriented x 3, not in distress, speaks in sentences with no effort or accessory muscle use Head- atraumatic Eyes- PERRL, EOMI, anicteric ENT- oropharynx clear Neck-full range of motion due to pain No adenopathy, no thyromegaly; carotids +2/2, no bruits appreciated Lungs- clear to auscultation bilaterally, no rales/wheezes Heart- normal rate, regular rhythm; no murmur, no gallop, no rub appreciated Abdomen- normal bowel sounds, nondistended, soft, nontender, no masses or hepatosplenomegaly Extremities- no pretibial edema, no calf tenderness; peripheral pulses intact Positive hematoma on the medial left thigh region Neuro- alert, oriented x 3; CN 2-12 grossly intact; motor 5/5 bilaterally;sensation 100% on all extremities; no other gross focal neurologic deficits Skin- warm & dry Results & Data Results & Data Vital Signs (Past 12 Hours) Vital Signs Temp Pulse Pulse Resp BP BP BP 09/01/22 11:50 36.5 C 61 18 106/67 09/01/22 10:17 61 09/01/22 09:45 36.9 C 60 18 106/68 09/01/22 09:00 61 20 124/73 09/01/22 08:30 65 16 122/74 09/01/22 08:29 65 09/01/22 08:00 62 17 132/80 09/01/22 07:30 60 13 141/83 H 09/01/22 07:00 60 14 125/81 09/01/22 06:30 60 17 09/01/22 06:30 130/88 09/01/22 05:00 60 15 09/01/22 05:00 125/76 09/01/22 04:34 117/77 09/01/22 04:30 60 13 09/01/22 04:26 60 09/01/22 04:00 60 17 09/01/22 04:00 136/88 09/01/22 03:30 65 16 09/01/22 03:30 128/83 09/01/22 03:00 68 16 09/01/22 03:00 128/80 Pulse Ox O2 Del Method 09/01/22 11:50 97 Room Air 09/01/22 10:17 09/01/22 09:45 97 Room Air 09/01/22 09:00 96 09/01/22 08:30 94 09/01/22 08:29 09/01/22 08:00 95 09/01/22 07:30 95 09/01/22 07:00 09/01/22 06:30 94 Room Air 09/01/22 06:30 09/01/22 05:00 93 09/01/22 05:00 09/01/22 04:34 09/01/22 04:30 93 Room Air 09/01/22 04:26 09/01/22 04:00 95 Room Air 09/01/22 04:00 09/01/22 03:30 94 Room Air 09/01/22 03:30 09/01/22 03:00 91 Room Air 09/01/22 03:00 all noted and reviewed including below
--- NOTE | 2022-09-01 15:31 | Neurology Consultation ---
Date of Consultation September 01, 2022 Assessment & Plan (1) Asymptomatic vertebral artery stenosis: Impression: Due to neck pain, CT angiograph of neck was ordered, which showed severe, left vertebral artery stenosis within the transverse foramen of at C6-7, secondary to prominent degenerative changes of the cervical spine. There is no finding to suggest vertebral artery dissection. There is no symptoms to suggest vertebrobasilar insufficiency. The patient has been on Eliquis and Plavix, due to recent vascular surgery of the lower extremity. The mechanism of vertebral artery stenosis is likely cervical degenerative changes and compression, more than atherosclerosis. Recommendations: We do recommend keeping patient on Plavix and Eliquis. There is no obvious imminent risk of cerebrovascular accident based on vertebral artery stenosis at this time. Spinal surgery consultation regarding spondylosis and compressive vertebral artery stenosis. Vascular surgery consultation might be considered as an outpatient, regarding vertebral artery stenosis. Lipid-lowering treatment would be helpful, but apparently, the patient has significant adverse reaction to statin trials before. If the patient experiences any new neurological symptoms, please recontact with neurology. (2) Cervical spondylolysis: Impression: The patient has a long history of spinal degenerative disorder, however, his neck pain has been worse in significantly during last few days. Neck pain is likely secondary to cervical spondylosis. (3) PVD (peripheral vascular disease): Impression: The patient recently had stent placement of right lower extremity, on Plavix and Eliquis. Plan As seen above. Thank you for the consultation. History of Present Illness Reason for Consultation: Neck pain with vertebral artery stenosis Requesting Physician: Lalo Rey MD Attending Physician: Lalo Rey MD History of Present Illness The patient is a 82-year-old gentleman, who was brought to emergency department yesterday evening, because of intractable neck pain. Apparently, neck pain started few days back, and due to persistent symptoms, they decided to come to emergency department. The patient denies associated neurological symptoms including dizziness, vertigo, imbalance, sensorimotor symptoms, cranial nerve symptoms, urinary difficulties, sensory leveling, or radiating pain to the shoulders or upper extremities. Patient has a long history of degenerative disorder of spine, and was last seen by orthopedic surgery many years ago. He has not had any spinal surgery. He has a long history of neck discomfort but until few days ago, he was not having severe neck pain. The patient denies any unusual neck movements, fall or injury. At this time, any neck movements can induce bilateral, mostly posterior cervicalgia.Cervical spine tomography showed prominent cervical spondylitic changes with multilevel severe neuroforaminal stenosis and moderate spinal canal narrowing. Based on having significant neck pain, CT angiogram of neck was also ordered, which showed severe narrowing of the left vertebral artery within the transverse foramen at C6-7 secondary to prominent degenerative changes of the cervical spine. There was no finding to suggest dissection. Other cervical arteries are patent without hemodynamically significant stenosis. The patient has history of peripheral vascular disease who received stent placement of right popliteal artery recently at [facility], and he is currently on Plavix as well as Eliquis. Due to low hemoglobin, there was a concern of a gastrointestinal bleed but hemoglobin level has been stable. The patient denies any gastrointestinal pain, blood in the stool, or any other clear reason of the anemia. Apparently, the patient has had significant adverse reaction to statins. After recent retrial on Lipitor, he has developed generalized body aches, myalgias and arthralgias, and had to stop using this medication. The patient denies history of stroke symptoms. More specifically, he has no symptoms to suggest vertebrobasilar insufficiency. Orthopedic surgery consultation is requested which is pending. Due to CT angiogram findings, neurology consultation is requested. I have reviewed the patient's chart including imaging studies and visualized them personally. I have discussed the case with the patient and his family and answered their questions in detail. Allergies Allergy/AdvReac Type Severity Reaction Status Date / Time spironolactone Allergy Intermediate RASH Verified 08/31/22 23:24 blue dye Allergy Unknown Unknown Verified 09/01/22 06:21 (bright blue HCF) propofol AdvReac Severe delerium Verified 09/01/22 06:21 atorvastatin [From Lipitor] AdvReac Intermediate GENERALIZED Verified 08/31/22 23:24 ACHES & PAINS baclofen AdvReac Intermediate ANXIETY Verified 08/31/22 23:24 Benzodiazepines AdvReac Intermediate VERSED--RLS, Verified 08/31/22 23:24 ANXIETY clioquinol AdvReac Intermediate ANXIETY Verified 08/31/22 23:24 diphenhydramine AdvReac Intermediate AGGRAVATES Verified 08/31/22 23:24 RLS escitalopram AdvReac Intermediate CAUSES RLS Verified 05/05/23 23:24 fluoxetine AdvReac Intermediate CAUSE RLS Verified 08/31/22 23:24 fluvoxamine AdvReac Intermediate CAUSES RLS Verified 08/31/22 23:24 guaifenesin AdvReac Intermediate Anxiety Verified 08/31/22 23:24 hydrocortisone AdvReac Intermediate ANXIETY Verified 08/31/22 23:24 lovastatin AdvReac Intermediate GENERALIZED Verified 08/31/22 23:24 ACHES & PAINS nystatin AdvReac Intermediate Muscle Pain Verified 08/31/22 23:24 paroxetine AdvReac Intermediate CAUSES RLS Verified 08/31/22 23:24 pseudoephedrine AdvReac Intermediate AGGRAVATES Verified 08/31/22 23:24 RLS rosuvastatin AdvReac Intermediate MYALGIAS Verified 08/31/22 23:24 simvastatin [From Zocor] AdvReac Intermediate GENERALIZED Verified 08/31/22 23:24 ACHES & PAIN zolpidem AdvReac Intermediate ANXIETY Verified 08/31/22 23:24 Home Medications Medication Instructions Recorded Confirmed Type pramipexole 1.5 mg tablet 3 mg PO HS 03/22/21 08/31/22 History carboxymethylcellulose sodium 0.5 1 drp ophthalmic (eye) QID 06/07/21 08/31/22 History % eye drops apixaban 5 mg tablet (Eliquis) 5 mg PO BID 08/31/22 08/31/22 History cholecalciferol (vitamin D3) 10 10 mcg PO DAILY 08/31/22 08/31/22 History mcg (400 unit) capsule (Vitamin D3) clopidogrel 75 mg tablet 75 mg PO DAILY 08/31/22 08/31/22 History eplerenone 50 mg tablet 50 mg PO BID 08/31/22 08/31/22 History ezetimibe 10 mg tablet 10 mg PO QAM 08/31/22 08/31/22 History finasteride 5 mg tablet 5 mg PO DAILY 08/31/22 08/31/22 History metoprolol succinate 25 mg 12.5 mg PO DAILY 08/31/22 08/31/22 History tablet,extended release 24 hr oxycodone 5 mg tablet 5 mg PO Q4H PRN Pain 08/31/22 08/31/22 History pravastatin 20 mg tablet 20 mg PO HS 08/31/22 08/31/22 History Patient History Medical History BPH (benign prostatic hyperplasia) CAD (coronary artery disease) GERD (gastroesophageal reflux disease) HLD (hyperlipidemia) HTN (hypertension) Hyperaldosteronism RLS (restless legs syndrome) Surgical History History of appendectomy History of inguinal hernia repair History of tonsillectomy and adenoidectomy Family History Father Coronary heart disease Stroke Social History Smoking Status: Former smoker Do You Dip or Chew Tobacco: No; Hx Alcohol Use: Yes Alcohol type: wine Hx Substance Use: No Preferred Language: Frisian Communication Ability: Effective Supervising Fire Marshal Required: No Beliefs That Will Affect Care: None Current Living Situation: Alone Current Living Situation Comment: home with Other Information That Helps Us Care for You: No Feels Safe at Home: Yes Safety Concerns: Feels Safe At This Time Assistive Devices: Cane, Glasses and Hearing Aid - Bilateral Review of Systems Review of Systems: All systems reviewed & are unremarkable except as noted in HPI & below Physical Exam Physical Exam: General Examination: Constitutional: Well developed person in no acute distress. HENT: Normal exam with inspection. CV: Hearth rhythm is regular. Neck: Very tender neck which induced posterior cervicalgia with any neck movements. There is no radiating pain to the shoulders or upper extremities. Lungs: Non-labored and comfortable breathing. Abdomen: Soft, non-tender, non-distended. Skin: No rash or ecchymosis. Extremities: No edema or cyanosis NEUROLOGICAL EXAMINATION: Mental Status: Alert and oriented to place, person and time. Cranial Nerves: II-XII are intact. No nystagmus. Funduscopy: Not visualized. Motor: 5/5 in all extremities without asymmetry. Tone: Normal without spasticity or rigidity. Sensory: Intact to all sensory modalities without asymmetry. Coordination: No dysmetria with FTN testing. Speech: Fluent. Comprehension is intact. Gait: Not able to assess at this time. Musculoskeletal: Normal muscle bulk, no atrophy. DTRs: Nos assessed. No Babinsky Results & Data Vital Signs (Past 12 Hours) Vital Signs Temp Pulse Pulse Resp BP BP BP 05/06/23 11:50 36.5 C 61 18 106/67 09/01/22 10:17 61 09/01/22 09:45 36.9 C 60 18 106/68 09/01/22 09:00 61 20 124/73 09/01/22 08:30 65 16 122/74 09/01/22 08:29 65 09/01/22 08:00 62 17 132/80 09/01/22 07:30 60 13 141/83 H 09/01/22 07:00 60 14 125/81 09/01/22 06:30 60 17 09/01/22 06:30 130/88 09/01/22 05:00 60 15 09/01/22 05:00 125/76 09/01/22 04:34 117/77 09/01/22 04:30 60 13 09/01/22 04:26 60 09/01/22 04:00 60 17 09/01/22 04:00 136/88 09/01/22 03:30 65 16 09/01/22 03:30 128/83 Pulse Ox O2 Del Method 09/01/22 11:50 97 Room Air 09/01/22 10:17 09/01/22 09:45 97 Room Air 09/01/22 09:00 96 09/01/22 08:30 94 09/01/22 08:29 09/01/22 08:00 95 09/01/22 07:30 95 09/01/22 07:00 09/01/22 06:30 94 Room Air 09/01/22 06:30 09/01/22 05:00 93 09/01/22 05:00 09/01/22 04:34 09/01/22 04:30 93 Room Air 09/01/22 04:26 09/01/22 04:00 95 Room Air 09/01/22 04:00 09/01/22 03:30 94 Room Air 09/01/22 03:30 Laboratory Results Laboratory Results - last 24 hr 08/31/22 08/31/22 08/31/22 23:31 23:31 23:31 WBC 11.15 H RBC 3.78 L Hgb 12.4 L Hct 36.4 L MCV 96.3 MCH 32.8 MCHC 34.1 RDW Std Deviation 43.4 RDW Coeff of Pietro 12.3 Plt Count 224 MPV 9.8 Immature Gran % (Auto) 0.4 Neut % (Auto) 78.7 Lymph % (Auto) 10.2 [place] % (Auto) 9.9 Eos % (Auto) 0.5 Baso % (Auto) 0.3 Reticulocyte % (Auto) Neut # (Auto) 8.78 H Lymph # (Auto) 1.14 L [place] # (Auto) 1.10 H Eos # (Auto) 0.06 Baso # (Auto) 0.03 Reticulocyte # Immature Gran # (Auto) 0.04 PT 12.4 H INR 1.1 APTT 29.3 PTT Ratio 1.0 Sodium 134 L Potassium 4.1 Chloride 103 Carbon Dioxide 25 Anion Gap 6 BUN 21 Creatinine 1.04 Est Cr Clr Drug Dosing 60.1 Est GFR ( Amer) 77.1 Est GFR (Non-Af Amer) 66.6 BUN/Creatinine Ratio 20.2 H Glucose 117 H Estimat Average Glucose Hemoglobin A1c Calcium 9.1 Iron Transferrin Ferritin Total Bilirubin 0.7 AST 16 ALT 16 Alkaline Phosphatase 85 Total Creatine Kinase 79 Troponin I High Sens 9.4 Total Protein 6.4 Albumin 3.6 Globulin 2.8 Albumin/Globulin Ratio 1.3 Vitamin B12 Folate Urine Color Urine Appearance Urine pH Ur Specific [place] Urine Protein Urine Glucose (UA) Urine Ketones Urine Blood Urine Nitrite Urine Bilirubin Urine Urobilinogen Ur Leukocyte Esterase SARS-CoV-2, RNA, NAAT Blood Type Antibody Screen 09/01/22 09/01/22 09/01/22 06:14 06:28 08:15 WBC RBC Hgb Hct MCV MCH MCHC RDW Std Deviation RDW Coeff of Pietro Plt Count MPV Immature Gran % (Auto) Neut % (Auto) Lymph % (Auto) [place] % (Auto) Eos % (Auto) Baso % (Auto) Reticulocyte % (Auto) Neut # (Auto) Lymph # (Auto) [place] # (Auto) Eos # (Auto) Baso # (Auto) Reticulocyte # Immature Gran # (Auto) PT INR APTT PTT Ratio Sodium Potassium Chloride Carbon Dioxide Anion Gap BUN Creatinine Est Cr Clr Drug Dosing Est GFR ( Amer) Est GFR (Non-Af Amer) BUN/Creatinine Ratio Glucose Estimat Average Glucose 117 Hemoglobin A1c 5.7 H Calcium Iron Transferrin Ferritin Total Bilirubin AST ALT Alkaline Phosphatase Total Creatine Kinase Troponin I High Sens Total Protein Albumin Globulin Albumin/Globulin Ratio Vitamin B12 Folate Urine Color Urine Appearance Urine pH Ur Specific [place] Urine Protein Urine Glucose (UA) Urine Ketones Urine Blood Urine Nitrite Urine Bilirubin Urine Urobilinogen Ur Leukocyte Esterase SARS-CoV-2, RNA, NAAT NEGATIVE Blood Type O Positive Antibody Screen NEGATIVE 09/01/22 09/01/22 09/01/22 08:15 08:15 08:15 WBC 9.76 RBC 3.79 L Hgb 12.3 L Hct 36.6 L MCV 96.6 MCH 32.5 MCHC 33.6 RDW Std Deviation 43.5 RDW Coeff of Pietro 12.3 Plt Count 215 MPV 9.7 Immature Gran % (Auto) 0.4 Neut % (Auto) 73.8 Lymph % (Auto) 12.7 [place] % (Auto) 12.4 Eos % (Auto) 0.5 Baso % (Auto) 0.2 Reticulocyte % (Auto) 1.6 Neut # (Auto) 7.20 H Lymph # (Auto) 1.24 [place] # (Auto) 1.21 H Eos # (Auto) 0.05 Baso # (Auto) 0.02 Reticulocyte # 0.06 Immature Gran # (Auto) 0.04 PT INR APTT PTT Ratio Sodium 134 L Potassium 4.1 Chloride 101 Carbon Dioxide 30 Anion Gap 3 BUN 15 Creatinine 0.96 Est Cr Clr Drug Dosing 65.1 Est GFR ( Amer) 85.0 Est GFR (Non-Af Amer) 73.3 BUN/Creatinine Ratio 15.6 Glucose 106 H Estimat Average Glucose Hemoglobin A1c Calcium 8.8 Iron 16 L Transferrin 249 Ferritin 252.4 Total Bilirubin AST ALT Alkaline Phosphatase Total Creatine Kinase Troponin I High Sens Total Protein Albumin Globulin Albumin/Globulin Ratio Vitamin B12 178 L Folate 14.10 Urine Color Urine Appearance Urine pH Ur Specific [place] Urine Protein Urine Glucose (UA) Urine Ketones Urine Blood Urine Nitrite Urine Bilirubin Urine Urobilinogen Ur Leukocyte Esterase SARS-CoV-2, RNA, NAAT Blood Type Antibody Screen 09/01/22 09/01/22 08:15 12:16 WBC RBC Hgb Hct MCV MCH MCHC RDW Std Deviation RDW Coeff of Pietro Plt Count MPV Immature Gran % (Auto) Neut % (Auto) Lymph % (Auto) [place] % (Auto) Eos % (Auto) Baso % (Auto) Reticulocyte % (Auto) Neut # (Auto) Lymph # (Auto) [place] # (Auto) Eos # (Auto) Baso # (Auto) Reticulocyte # Immature Gran # (Auto) PT INR APTT 29.3 PTT Ratio 1.0 Sodium Potassium Chloride Carbon Dioxide Anion Gap BUN Creatinine Est Cr Clr Drug Dosing Est GFR ( Amer) Est GFR (Non-Af Amer) BUN/Creatinine Ratio Glucose Estimat Average Glucose Hemoglobin A1c Calcium Iron Transferrin Ferritin Total Bilirubin AST ALT Alkaline Phosphatase Total Creatine Kinase Troponin I High Sens Total Protein Albumin Globulin Albumin/Globulin Ratio Vitamin B12 Folate Urine Color Yellow Urine Appearance Clear Urine pH 7.0 Ur Specific [place] 1.015 Urine Protein Negative Urine Glucose (UA) Negative Urine Ketones Negative Urine Blood Negative Urine Nitrite Negative Urine Bilirubin Negative Urine Urobilinogen Negative Ur Leukocyte Esterase Negative SARS-CoV-2, RNA, NAAT Blood Type Antibody Screen Diagnostic Findings Cervical Spine CT 08/31/22 22:53 Exam(s): CT C SPINE EXAM: CT Cervical Spine Without Intravenous Contrast CLINICAL HISTORY: Reason for exam: neck pain. TECHNIQUE: Axial computed tomography images of the cervical spine without intravenous contrast. CTDI is 36.08 mGy and DLP is 1687.16 mGy-cm. Automated exposure control was utilized for the study. A dose lowering technique was utilized adhering to the principles of ALARA. COMPARISON: No relevant prior studies available. FINDINGS: Vertebrae: Prominent multilevel cervical spondylosis. Loss of intervertebral disc height and subchondral cyst formation. Trace retrolisthesis of C5 on C6 and C6 on C7 which appears degenerative in etiology. No acute fracture. Discs/spinal canal/neural foramina: At C2-3, uncinate hypertrophy results in moderate right and severe left neuroforaminal stenoses. At C3- 4, uncinate hypertrophy results in severe bilateral neuroforaminal stenoses. Mild spinal canal stenosis seen. At C4-5, there is severe left and moderate right neuroforaminal stenosis with mild spinal canal stenosis. At C5-6, degenerative change results in moderate spinal canal narrowing and severe bilateral neuroforaminal stenoses. At C6-7, degenerative change results in severe bilateral neuroforaminal stenoses and moderate spinal canal stenosis. Soft tissues: Grossly Unremarkable. IMPRESSION: Prominent cervical spondylitic change with multilevel severe neuroforaminal stenoses and moderate spinal canal narrowing as detailed above. Electronically signed by: Sanchez Medina M.D. 09/01/22 05:38 AM Chest X-Ray 08/31/22 22:53 SINGLE VIEW CHEST CLINICAL HISTORY: Neck pain. FINDINGS: An AP, portable, upright chest radiograph is compared to study dated 06/07/2021. A 2-lead cardiac pacemaker is unchanged in position. The heart is mildly enlarged. The pulmonary vasculature is noncongested. There is mild elevation of the left hemidiaphragm and bibasilar atelectasis. The lungs and pleural spaces are otherwise clear. No pneumothorax is seen. The skeletal structures are osteopenic. The bony thorax is grossly intact. Arthritic change is seen in the shoulders. IMPRESSION: 1. Cardiomegaly and cardiac pacemaker without radiographic evidence of congestive failure. 2. No airspace consolidation or large pleural effusion is identified. ACT 112: Negative or not required by law. Electronically signed by: Roverto House M.D. 08/31/2022 11:[address] 08/31/22 22:53 Exam(s): CT HEAD Without Contrast EXAM: CT Head Without Intravenous Contrast CLINICAL HISTORY: Reason for exam: head and neck pain. TECHNIQUE: Axial computed tomography images of the head/brain without intravenous contrast. CTDI is 36.08 mGy and DLP is 1687.16 mGy-cm. Automated exposure control was utilized for the study. A dose lowering technique was utilized adhering to the principles of ALARA. COMPARISON: MRI brain performed 12/08/2009 FINDINGS: Exam limited due to lack of coronal sagittal reformatted images. Within this constraint: There is no acute intracranial hemorrhage or major vascular territory infarct. No mass effect or midline shift seen. There is prominence of the ventricles and sulci consistent with generalized parenchymal volume loss. Scattered hypodensities throughout the periventricular and subcortical white matter are noted, likely sequela of chronic microvascular changes. The calvarium is intact. Bilateral lens replacements noted. 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 The mastoid air cells are clear. IMPRESSION: Exam limited due to lack of coronal sagittal reformatted images. Within this constraint: No acute intracranial pathology. Generalized parenchymal volume loss and sequela of chronic microvascular ischemic angiopathy. Electronically signed by: Sanchez Medina M.D. 09/01/22 05:45 AM Neck CTA 08/31/22 22:53 Exam(s): CTA NECK With Contrast IV Amt: 116 cc's EXAM: CT Angiography Neck With Intravenous Contrast CLINICAL HISTORY: Reason for exam: neck pain, recent vascular surgery in right leg. TECHNIQUE: Routine carotid CT angiography protocol was performed with intravenous contrast. NASCET criteria using the distal ICAs for comparison were used for evaluation of stenoses. CTDI is 36.08 mGy and DLP is 1687.16 mGy-cm. Automated exposure control was utilized for the study. A dose lowering technique was utilized adhering to the principles of ALARA. MIP reconstructed images were created and reviewed. CONTRAST: Patient received 116 cc's of IV contrast COMPARISON: None. FINDINGS: VASCULATURE: Right common carotid artery: No occlusion or significant stenosis. No dissection. Right internal carotid artery: See below. Right external carotid artery: Unremarkable. No occlusion. Right vertebral artery: No occlusion or significant stenosis. No dissection. Left common carotid artery: No occlusion or significant stenosis. No dissection. Left internal carotid artery: See below. Left external carotid artery: Unremarkable. No occlusion. Left vertebral artery: Mild narrowing within the transverse foramen at C5-6 and moderate to severe narrowing at C6-7 secondary to prominent degenerative changes of the cervical spine. No occlusion. No dissection. Other vasculature: Calcified and noncalcified atherosclerotic plaque within the carotid bifurcations and proximal ICA bilaterally with less than 50% stenosis. NECK: Bones/joints: Multilevel cervical spondylosis, see CT cervical spine for detailed evaluation. Soft tissues: Unremarkable. Lung apices: Clear. CAROTID STENOSIS REFERENCE USING NASCET CRITERIA: % ICA stenosis = (1 - narrowest ICA diameter/diameter of distal cervical ICA) x 100. Mild - <50% stenosis. Moderate - 50-69% stenosis. Severe - 70-94% stenosis. Near occlusion - 95-99% stenosis. Occluded - 100% stenosis. 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 No other significant stenosis in the neck. Prominent multilevel cervical spondylosis detailed on dedicated CT of the cervical spine. Electronically signed by: Sanchez Medina M.D. 09/01/22 05:42 AM Venous Doppler Study 08/31/22 22:53 Exam(s): US VENOUS BILATERAL LOWER EXTREMITIES EXAM: US Duplex Bilateral Lower Extremities Veins CLINICAL HISTORY: Reason for exam: eval DVT - recent vascular surgery right leg. TECHNIQUE: Real-time duplex ultrasound scan of the bilateral lower extremity veins integrating B-mode two-dimensional vascular structure, Doppler spectral analysis, color flow Doppler imaging and compression. COMPARISON: No relevant prior studies available. FINDINGS: Right deep veins: Unremarkable. No DVT in the right common femoral, femoral, proximal deep femoral or popliteal veins. The veins demonstrate normal color flow, are normally compressible, with normal phasic flow and/or augmentation response. Right superficial veins: Unremarkable. No thrombus in the visualized right great saphenous vein. Left deep veins: Unremarkable. No DVT in the left common femoral, femoral, proximal deep femoral or popliteal veins. The veins demonstrate normal color flow, are normally compressible, with normal phasic flow and/or augmentation response. Left superficial veins: Unremarkable. No thrombus in the visualized left great saphenous vein. Soft tissues: 3.6 cm cystic focus seen in the right popliteal fossa. IMPRESSION: No acute findings in the bilateral lower extremity veins. Electronically signed by: Shaji Mata MD 09/01/22 06:04 AM
[2022-09-01] MEDS: FERROUS SULFATE 325 MG TAB PO SCH (16:07)
[2022-09-01] MEDS ORDERED: APIXABAN 5 MG TABLET PO SCH (21:00)
[2022-09-01] MEDS ORDERED: EPLERENONE 25 MG PO SCH (21:00)
[2022-09-01] MEDS: APIXABAN 5 MG TABLET PO SCH (21:25)
[2022-09-01] MEDS: CLOPIDOGREL BISULFATE 75 MG TAB PO SCH (21:25)
[2022-09-01] MEDS: PRAMIPEXOLE DIHYDROCHLO 0.5 MG TAB PO SCH (21:27)
[2022-09-02] MEDS: oxyCODONE HCL IR 5 MG TAB (IMMEDIATE RELEASE) PO PRN (04:54)
[2022-09-02 06:17] LABS: Basophils # (auto) 0.03 K/uL (0-0.2); Basophils % (auto) 0.3 %; Eosinophils # (auto) 0.05 K/uL (0-0.50); Eosinophils % (auto) 0.5 %; Hematocrit (blood only) 38.7 % (42.0-52.0); Hemoglobin 12.8 g/dl (14.0-18.0); Immature Granulocytes # (auto) 0.04 K/uL (0.01-0.20); Immature Granulocytes % (auto) 0.4 %; Lymphocytes # (auto) 1.51 K/uL (1.2-3.4); Lymphocytes % (auto) 14.9 %; Mean Corpuscular Hemoglobin 32.8 pg (25.0-34.0); Mean Corpuscular Hgb Conc 33.1 g/dL (32.0-36.0); Mean Corpuscular Volume 99.2 fL (80.0-100.0); Mean Platelet Volume 9.8 fL (9.4-12.4); Monocytes # (auto) 1.08 K/uL (0.11-0.59); Monocytes % (auto) 10.6 %; Neutrophils # (auto) 7.44 K/uL (1.40-6.50); Neutrophils % (auto) 73.3 %; Platelet Count 222 K/uL (130-400); RDW Coefficient of Variation 12.3 % (11.5-14.5); RDW Standard Deviation 45.2 fL (36.4-46.3); White Blood Count 10.15 K/ul (4.8-10.8)
[2022-09-02 06:30] LABS: BUN Creatinine Ratio 16.2 (10-20); Calcium 8.8 mg/dl (8.6-10.3); Creatinine Clr Calc Pharmacy 59.5 ml/min; Est GFR (African American) 76.2 ml/min; Est GFR (Non-African American) 65.8 ml/min; Potassium 4.2 mmol/L (3.5-5.1)
[2022-09-02] MEDS: CLOPIDOGREL BISULFATE 75 MG TAB PO SCH (07:49)
[2022-09-02] MEDS: APIXABAN 5 MG TABLET PO SCH ×2 (07:49→20:48)
[2022-09-02] MEDS: METOPROLOL SUCC 25MG EXT REL TAB PO SCH (07:50)
[2022-09-02] MEDS: FINASTERIDE 5 MG TAB PO SCH (07:50)
[2022-09-02] MEDS: EPLERENONE 25 MG PO SCH ×2 (07:50→20:47)
[2022-09-02] MEDS: FERROUS SULFATE 325 MG TAB PO SCH ×2 (07:50→17:21)
[2022-09-02] MEDS: LIDOCAINE 5% 1 PATCH TD SCH (07:52)
--- NOTE | 2022-09-02 08:26 | Consultation ---
Date of Consultation September 02, 2022 Assessment & Plan (1) Cervical spondylolysis: Doreen has a 4-day history of acute on chronic neck pain that is improving. CT scan shows severe degenerative disc disease, spondylosis, moderate to severe foraminal stenosis multilevel. It also shows severe left-sided vertebral artery stenosis. He has no radicular component to his pain. Treatment recommendation is therefore conservative especially in light of his recent right femoropopliteal bypass now on Eliquis and Plavix. If pain is still not well controlled would consider pain management consultation. If his pacemaker is MRI compatible this would also be an avenue to consider pursuing as well, in the form of an MRI of the cervical spine without contrast. Would recommend vascular consultation regarding his vertebral artery stenosis. No evidence of acute dissection. Again no acute surgical indications. He is neurologically intact. Continue with conservative treatment/pain management. Dr. Ham will review imaging and case tomorrow and make further recommend stations if applicable History of Present Illness Reason for Consultation: Neck pain Attending Physician: Lalo Rey MD History of Present Illness Is an 82-year-old gentleman who states his neck pain started 4 days ago without precipitating accident, trauma, fall. He has no radicular pain, paresthesia, numbness or weakness affecting his upper or lower extremities. He was not taking any medication at home for the symptoms. He states physical therapy has been successful in the past for chronic issues. Denies any changes in his balance. Ambulates independently. While in the hospital he states a muscle relaxant and oxycodone have been successful in alleviating some of his pain. Heat does also palliative. Recently on August 17, 2022 he underwent a right sided femoral-popliteal stent and angiography in [place]. He is currently on Eliquis and Plavix. Also has a pacemaker. He is unsure if it is MRI compatible. On cervical CT this admission he was found to have severe left-sided vertebral artery stenosis. Also on admission he has positive Hemoccult blood test. GI has been consulted. Allergies Allergy/AdvReac Type Severity Reaction Status Date / Time spironolactone Allergy Intermediate RASH Verified 08/31/22 23:24 blue dye Allergy Unknown Unknown Verified 09/01/22 06:21 (bright blue HCF) propofol AdvReac Severe delerium Verified 09/01/22 06:21 atorvastatin [From Lipitor] AdvReac Intermediate GENERALIZED Verified 08/31/22 23:24 ACHES & PAINS baclofen AdvReac Intermediate ANXIETY Verified 08/31/22 23:24 Benzodiazepines AdvReac Intermediate VERSED--RLS, Verified 08/31/22 23:24 ANXIETY clioquinol AdvReac Intermediate ANXIETY Verified 08/31/22 23:24 diphenhydramine AdvReac Intermediate AGGRAVATES Verified 08/31/22 23:24 RLS escitalopram AdvReac Intermediate CAUSES RLS Verified 08/31/22 23:24 fluoxetine AdvReac Intermediate CAUSE RLS Verified 08/31/22 23:24 fluvoxamine AdvReac Intermediate CAUSES RLS Verified 08/31/22 23:24 guaifenesin AdvReac Intermediate Anxiety Verified 08/31/22 23:24 hydrocortisone AdvReac Intermediate ANXIETY Verified 08/31/22 23:24 lovastatin AdvReac Intermediate GENERALIZED Verified 08/31/22 23:24 ACHES & PAINS nystatin AdvReac Intermediate Muscle Pain Verified 08/31/22 23:24 paroxetine AdvReac Intermediate CAUSES RLS Verified 08/31/22 23:24 pseudoephedrine AdvReac Intermediate AGGRAVATES Verified 08/31/22 23:24 RLS rosuvastatin AdvReac Intermediate MYALGIAS Verified 08/31/22 23:24 simvastatin [From Zocor] AdvReac Intermediate GENERALIZED Verified 08/31/22 23:24 ACHES & PAIN zolpidem AdvReac Intermediate ANXIETY Verified 08/31/22 23:24 Home Medications Medication Instructions Recorded Confirmed Type pramipexole 1.5 mg tablet 3 mg PO HS 03/22/21 08/31/22 History carboxymethylcellulose sodium 0.5 1 drp ophthalmic (eye) QID 06/07/21 08/31/22 History % eye drops apixaban 5 mg tablet (Eliquis) 5 mg PO BID 08/31/22 08/31/22 History cholecalciferol (vitamin D3) 10 10 mcg PO DAILY 08/31/22 08/31/22 History mcg (400 unit) capsule (Vitamin D3) clopidogrel 75 mg tablet 75 mg PO DAILY 08/31/22 08/31/22 History eplerenone 50 mg tablet 50 mg PO BID 08/31/22 08/31/22 History ezetimibe 10 mg tablet 10 mg PO QAM 08/31/22 08/31/22 History finasteride 5 mg tablet 5 mg PO DAILY 08/31/22 08/31/22 History metoprolol succinate 25 mg 12.5 mg PO DAILY 08/31/22 08/31/22 History tablet,extended release 24 hr oxycodone 5 mg tablet 5 mg PO Q4H PRN Pain 08/31/22 08/31/22 History pravastatin 20 mg tablet 20 mg PO HS 08/31/22 08/31/22 History Patient History Medical History BPH (benign prostatic hyperplasia) CAD (coronary artery disease) GERD (gastroesophageal reflux disease) HLD (hyperlipidemia) HTN (hypertension) Hyperaldosteronism RLS (restless legs syndrome) Surgical History History of appendectomy History of inguinal hernia repair History of tonsillectomy and adenoidectomy Family History Father Coronary heart disease Stroke Social History Smoking Status: Former smoker Do You Dip or Chew Tobacco: No; Hx Alcohol Use: Yes Alcohol type: wine Hx Substance Use: No Preferred Language: Ukrainian Communication Ability: Effective Manager Reading Required: No Beliefs That Will Affect Care: None Current Living Situation: Alone Current Living Situation Comment: home with Other Information That Helps Us Care for You: No Feels Safe at Home: Yes Safety Concerns: Feels Safe At This Time Assistive Devices: None Review of Systems Review of Systems: All systems reviewed & are unremarkable except as noted in HPI & below Physical Exam Physical Exam: Alert and oriented x3 Sitting up in bed eating breakfast in no acute distress Very limited range of motion with both flexion extension and [id number] rotation of his neck Strength is 5/5 bilateral biceps, triceps, deltoid No evidence of upper motor neuron signs Results & Data Vital Signs (Past 12 Hours) Vital Signs Temp Pulse Pulse Resp BP Pulse Ox O2 Del Method 09/02/22 07:23 62 09/02/22 07:21 37.6 C H 62 18 100/63 94 Room Air 09/02/22 03:18 77 117/77 09/02/22 02:52 36.8 C 55 L 16 99/63 L 93 Room Air 09/01/22 22:28 65 09/01/22 22:32 37.4 C 65 17 108/67 94 Room Air 09/01/22 20:55 Room Air Diagnostic Findings [facility] [place] [phone] CT Scan Report Patient:DOREEN MORROW Admit Date:08/31/22 MR#:[id number] Address1:[address] [place] [address] Acct ID:[id number] Address2: Date:[address] [facility] Zip:[place] [address] Age:82 Location:ED Sex:M Room/Bed: Att Phy: Diagnosis:POSSIBLE BLOOD CLOT IN NECK/DISCOLORATION [place] Phy:Jonathon Aparicio DO Service Date:08/31/22 Fam Phy: Interpreting Phy:Sanchez Medina MDAdmit Phy: Ordering Phy:Amber Mauricio PA-C cc: ~ Exam(s): CT C SPINE EXAM: CT Cervical Spine Without Intravenous Contrast CLINICAL HISTORY: Reason for exam: neck pain. TECHNIQUE: Axial computed tomography images of the cervical spine without intravenous contrast. CTDI is 36.08 mGy and DLP is 1687.16 mGy-cm. Automated exposure control was utilized for the study. A dose lowering technique was utilized adhering to the principles of ALARA. COMPARISON: No relevant prior studies available. FINDINGS: Vertebrae: Prominent multilevel cervical spondylosis. Loss of intervertebral disc height and subchondral cyst formation. Trace retrolisthesis of C5 on C6 and C6 on C7 which appears degenerative in etiology. No acute fracture. Discs/spinal canal/neural foramina: At C2-3, uncinate hypertrophy results in moderate right and severe left neuroforaminal stenoses. At C3- 4, uncinate hypertrophy results in severe bilateral neuroforaminal stenoses. Mild spinal canal stenosis seen. At C4-5, there is severe left and moderate right neuroforaminal stenosis with mild spinal canal stenosis. At C5-6, degenerative change results in moderate spinal canal narrowing and severe bilateral neuroforaminal stenoses. At C6-7, degenerative change results in severe bilateral neuroforaminal stenoses and moderate spinal canal stenosis. Soft tissues: Grossly Unremarkable. IMPRESSION: Prominent cervical spondylitic change with multilevel severe neuroforaminal stenoses and moderate spinal canal narrowing as detailed above. Electronically signed by: Sanchez Medina M.D. 09/01/22 05:38 AM Dictated:09/01/22537 Transcribed: 09/01/22 0538
[2022-09-02] MEDS: tiZANidine HCL 4 MG TABLET PO PRN ×3 (08:43→20:48)
[2022-09-02] MEDS ORDERED: CLOPIDOGREL BISULFATE 75 MG TAB PO SCH (09:00)
[2022-09-02] MEDS: ACETAMINOPHEN 500 MG TAB PO SCH ×2 (14:11→20:47)
[2022-09-02] MEDS: SODIUM CHLORIDE 0.9% 1000ML 1,000 ML IV SCH (15:41)
--- NOTE | 2022-09-02 18:05 | Hospitalist Progress Note ---
Date of Service September 02, 2022 Assessment & Plan (1) Anemia: Plan: 82 old male with history of recent right femoral-popliteal artery vascularization/thrombectomy status post stent placement and angioplasty August 17, 2022, Paroxysmal atrial fibrillation on Eliquis, status post pacemaker placement, etc. presenting with persistent severe neck pain which started yesterday. Persistent cervical pain Underlying cervical stenosis, neuroforaminal stenosis -- Unclear trigger of severe pain Per family, patient cleaned their car 1 to 2 days prior to onset of severe pain --Required IV Dilaudid, etc. at the ER to control pain -- CT cervical spine: Severe narrowing of the left vertebral artery within the transverse foramen at C6-7 and mild narrowing at C5-6 secondary to prominent degenerative changes of the cervical spine. No other significant stenosis in the neck. -- Lidoderm patch, ice packs As needed oxycodone and Dilaudid for pain control Dr. Ham consulted PT and OT evaluation 09/02 Neck pain about the same Add Tylenol 1 g every 8 hours Patient prefers to defer prednisone for now Continue Zanaflex, oxycodone as needed We will consult pain management service Awaiting Dr. Ham's recommendation Continue PT and OT evaluation Left vertebral artery narrowing, severe --Asymptomatic No neurologic symptoms -- Neurology consulted: No additional intervention at this point, recommend outpatient vascular surgery evaluation --Continue Eliquis, Plavix Positive Hemoccult blood test -- Noted at the ER -- Hemoglobin baseline 14 After recent surgery, August 19, Hg 12 Hemoglobin at the ER 12 -- Colonoscopy 2014 revealing internal hemorrhoids and diverticulosis -- Anemia panel revealing iron 16 -- Decrease in hemoglobin likely related to recent vascular surgery Patient denies melena or hematochezia -- Discussed with GI service -- We will advance diet, resume Eliquis and Plavix given patient's extensive cardiovascular history -- Continue to trend hemoglobin daily, patient advised to report any melena or hematochezia immediately 09/02 Hemoglobin stable at 12 No melena or hematochezia Continue to observe Recent right femoral-popliteal artery revascularization/thrombectomy, status post stent placement and angioplasty -- Site healing well except for hematoma noted on the thigh which is resolving per patient's -- Continue Plavix Did not tolerate statin patient was started after surgery, due to muscle pain CK level normal History of paroxysmal atrial fibrillation, status post pacemaker placement --Currently in sinus rhythm Continue eplerenone, Eliquis DVT prophylaxis, currently on Eliquis Disposition PT and OT evaluation Lives at home with his plan of care discussed with patient, Grace, daughter Danica at the bedside in detail and at length all questions answered they are understanding, agreeable, comfortable with the plan of care (2) Intractable pain: Plan: 82-year-old male with history of recent right femoral-popliteal artery vascularization/thrombectomy status post stent placement and angioplasty August 17, 2022, Paroxysmal atrial fibrillation on Eliquis, status post pacemaker placement, etc. presenting with persistent severe neck pain which started yesterday. Persistent cervical pain Underlying cervical stenosis, neuroforaminal stenosis -- Unclear trigger of severe pain Per family, patient cleaned their car 1 to 2 days prior to onset of severe pain --Required IV Dilaudid, etc. at the ER to control pain -- CT cervical spine: Severe narrowing of the left vertebral artery within the transverse foramen at C6-7 and mild narrowing at C5-6 secondary to prominent degenerative changes of the cervical spine. No other significant stenosis in the neck. -- Lidoderm patch, ice packs As needed oxycodone and Dilaudid for pain control Dr. Ham consulted PT and OT evaluation Left vertebral artery narrowing, severe --Asymptomatic No neurologic symptoms -- Neurology consulted --Continue Eliquis, Plavix Positive Hemoccult blood test -- Noted at the ER -- Hemoglobin baseline 14 After recent surgery, August 19, Hg 12 Hemoglobin at the ER 12 -- Colonoscopy 2014 revealing internal hemorrhoids and diverticulosis -- Anemia panel revealing iron 16 -- Decrease in hemoglobin likely related to recent vascular surgery Patient denies melena or hematochezia -- Discussed with GI service -- We will advance diet, resume Eliquis and Plavix given patient's extensive cardiovascular history -- Continue to trend hemoglobin daily, patient advised to report any melena or hematochezia immediately Recent right femoral-popliteal artery revascularization/thrombectomy, status post stent placement and angioplasty -- Site healing well except for hematoma noted on the thigh which is resolving per patient's -- Continue Plavix Did not tolerate statin patient was started after surgery, due to muscle pain CK level normal History of paroxysmal atrial fibrillation, status post pacemaker placement --Currently in sinus rhythm Continue eplerenone, Eliquis DVT prophylaxis, currently on Eliquis Disposition PT and OT evaluation Lives at home with his plan of care discussed with patient, Grace, daughter Danica at the bedside in detail and at length all questions answered they are understanding, agreeable, comfortable with the plan of care Admission and Anticipated Discharge Date Admission Date: September 01, 2022 Subjective follow-up for persistent neck pain, etc. Seen resting in bed, not in distress Neck pain was improving overnight but this morning seem to increase again Denies neurologic deficits Denies abdominal pain, nausea, melena or hematochezia no chest pain, dyspnea, palpitations, dizziness No other new symptoms Review of Systems Review of Systems: all noted and negative except for above Physical Exam Physical Exam: General- oriented x 3, not in distress, speaks in sentences with no effort or accessory muscle use Eyes- anicteric Neck- no JVD Lungs- clear BS BL Heart- normal rate, regular rhythm; no murmurs Abdomen- normal bowel sounds, nondistended, soft, nontender Extremities- no pretibial edema, no calf tenderness Neuro- alert, oriented x 3; no gross focal neurologic deficits Skin- warm & dry Results & Data Results & Data Vital Signs (Past 12 Hours) Vital Signs Temp Pulse Pulse Resp BP Pulse Ox O2 Del Method 09/02/22 15:44 37.0 C 63 18 114/68 96 Room Air 09/02/22 14:38 62 09/02/22 11:47 37.0 C 60 18 101/67 96 Room Air 09/02/22 07:23 62 09/02/22 07:21 37.6 C H 62 18 100/63 94 Room Air all noted and reviewed including below
[2022-09-02] MEDS: POLYETHYLENE (MIRALAX) 17 GM PACK PO SCH (18:18)
[2022-09-02] MEDS: PRAMIPEXOLE DIHYDROCHLO 0.5 MG TAB PO SCH (20:48)
[2022-09-03] MEDS: SODIUM CHLORIDE 0.9% 1000ML 1,000 ML IV SCH (04:14)
[2022-09-03] MEDS: ACETAMINOPHEN 500 MG TAB PO SCH ×3 (06:02→21:39)
[2022-09-03] MEDS: tiZANidine HCL 4 MG TABLET PO PRN (06:04)
[2022-09-03] MEDS: APIXABAN 5 MG TABLET PO SCH ×2 (08:34→21:38)
[2022-09-03] MEDS: FERROUS SULFATE 325 MG TAB PO SCH ×2 (08:34→17:21)
[2022-09-03] MEDS: METOPROLOL SUCC 25MG EXT REL TAB PO SCH (08:35)
[2022-09-03] MEDS: CLOPIDOGREL BISULFATE 75 MG TAB PO SCH (08:35)
[2022-09-03] MEDS: POLYETHYLENE (MIRALAX) 17 GM PACK PO SCH (08:35)
[2022-09-03] MEDS: FINASTERIDE 5 MG TAB PO SCH (08:36)
[2022-09-03] MEDS: LIDOCAINE 5% 1 PATCH TD SCH (08:36)
[2022-09-03] MEDS: EPLERENONE 25 MG PO SCH ×2 (08:37→21:38)
--- NOTE | 2022-09-03 08:37 | Pain Management Consultation ---
Date of Consultation September 03, 2022 Assessment & Plan (1) Acute neck pain: Plan * Continue Oxycodone 5-10 mg x 6 hours * Tizanidine was switched to Baclofen to see if it may provide additional relief * Continue PT/OT * I did discuss initiating a Medrol Dose Hayden but patient defers at this time. We have discussed trying the Medrol hayden if the switch from Tizanidine to Baclofen is not helpful. He is agreeable. * Nothing interventional to offer at this time. * Will sign off on the patient. Please contact with any questions or concerns. History of Present Illness Reason for Consultation: Neck pain Attending Physician: Lalo Rey MD History of Present Illness Mr. Goldstein is an 82 year old male that has been admitted for acute on chronic neck pain. He states that the neck pain started 5 days ago without any known injury. He describes an aching with intermittent sharp pain in the mid to lower cervical region. Pain is improved with ice and medication. Neck ROM increases pain. He denies any radicular symptoms. He is currently taking Tizanidine 2mg TID and Oxycodone 5-10mg x 6 hours with moderate improvement. He states that the pain was a 25/10 on arrival to the Emergency Department and currently a 9/10. Physical therapy has helped in the past for flareups of pain. There is mild associated headache. Patient denies any arm weakness or dropping of objects. Case discussed with Dr. Milian Allergies Allergy/AdvReac Type Severity Reaction Status Date / Time spironolactone Allergy Intermediate RASH Verified 08/31/22 23:24 blue dye Allergy Unknown Unknown Verified 09/01/22 06:21 (bright blue HCF) propofol AdvReac Severe delerium Verified 09/01/22 06:21 atorvastatin [From Lipitor] AdvReac Intermediate GENERALIZED Verified 08/31/22 23:24 ACHES & PAINS baclofen AdvReac Intermediate ANXIETY Verified 08/31/22 23:24 Benzodiazepines AdvReac Intermediate VERSED--RLS, Verified 08/31/22 23:24 ANXIETY clioquinol AdvReac Intermediate ANXIETY Verified 08/31/22 23:24 diphenhydramine AdvReac Intermediate AGGRAVATES Verified 08/31/22 23:24 RLS escitalopram AdvReac Intermediate CAUSES RLS Verified 08/31/22 23:24 fluoxetine AdvReac Intermediate CAUSE RLS Verified 08/31/22 23:24 fluvoxamine AdvReac Intermediate CAUSES RLS Verified 08/31/22 23:24 guaifenesin AdvReac Intermediate Anxiety Verified 08/31/22 23:24 hydrocortisone AdvReac Intermediate ANXIETY Verified 08/31/22 23:24 lovastatin AdvReac Intermediate GENERALIZED Verified 08/31/22 23:24 ACHES & PAINS nystatin AdvReac Intermediate Muscle Pain Verified 08/31/22 23:24 paroxetine AdvReac Intermediate CAUSES RLS Verified 08/31/22 23:24 pseudoephedrine AdvReac Intermediate AGGRAVATES Verified 08/31/22 23:24 RLS rosuvastatin AdvReac Intermediate MYALGIAS Verified 08/31/22 23:24 simvastatin [From Zocor] AdvReac Intermediate GENERALIZED Verified 08/31/22 23:24 ACHES & PAIN zolpidem AdvReac Intermediate ANXIETY Verified 08/31/22 23:24 Home Medications Medication Instructions Recorded Confirmed Type pramipexole 1.5 mg tablet 3 mg PO HS 03/22/21 08/31/22 History carboxymethylcellulose sodium 0.5 1 drp ophthalmic (eye) QID 06/07/21 08/31/22 History % eye drops apixaban 5 mg tablet (Eliquis) 5 mg PO BID 08/31/22 08/31/22 History cholecalciferol (vitamin D3) 10 10 mcg PO DAILY 08/31/22 08/31/22 History mcg (400 unit) capsule (Vitamin D3) clopidogrel 75 mg tablet 75 mg PO DAILY 08/31/22 08/31/22 History eplerenone 50 mg tablet 50 mg PO BID 08/31/22 08/31/22 History ezetimibe 10 mg tablet 10 mg PO QAM 08/31/22 08/31/22 History finasteride 5 mg tablet 5 mg PO DAILY 08/31/22 08/31/22 History metoprolol succinate 25 mg 12.5 mg PO DAILY 08/31/22 08/31/22 History tablet,extended release 24 hr oxycodone 5 mg tablet 5 mg PO Q4H PRN Pain 08/31/22 08/31/22 History pravastatin 20 mg tablet 20 mg PO HS 08/31/22 08/31/22 History Patient History Medical History BPH (benign prostatic hyperplasia) CAD (coronary artery disease) GERD (gastroesophageal reflux disease) HLD (hyperlipidemia) HTN (hypertension) Hyperaldosteronism RLS (restless legs syndrome) Surgical History History of appendectomy History of inguinal hernia repair History of tonsillectomy and adenoidectomy Family History Father Coronary heart disease Stroke Social History Smoking Status: Former smoker Do You Dip or Chew Tobacco: No; Hx Alcohol Use: Yes Alcohol type: wine Hx Substance Use: No Preferred Language: Spanish Communication Ability: Effective Social Worker Aide Required: No Beliefs That Will Affect Care: None Current Living Situation: Alone Current Living Situation Comment: home with Other Information That Helps Us Care for You: No Feels Safe at Home: Yes Safety Concerns: Feels Safe At This Time Assistive Devices: Cane, Glasses and Hearing Aid - Bilateral Physical Exam Physical Exam: GENERAL: This is a 82 year old male that does appear in moderate pain with neck ROM. At rest appears comfortable. HEAD/FACE: Normocephalic and atraumatic. EYES: No drainage or conjunctival injection. ENT: Nose without bleeding or discharge. Oral mucosa moist. NECK: 30 degrees of lateral ROM bilaterally. Minimal extension. Full flexion. Negative Spurling maneuver. There is moderate diffuse tenderness from C4-T1. Mild myofascial spasm without trigger points noted. RESPIRATORY: Patient with unlabored breathing. No signs of respiratory distress. CHEST/AXILLA: Chest movement symmetrical. No deformities noted. SKIN: [place], warm and dry. No rash noted. MS/EXTREMITY: No swelling, no deformities. Moving extremities appropriately. NEURO: Alert and appears oriented. Speech is fluent. Cranial Nerves are grossly intact. PSYCH: Alert, pleasant, affect is calm Results (Pain Clinic) Diagnostic Review CT Findings: EXAM: CT Cervical Spine Without Intravenous Contrast CLINICAL HISTORY: Reason for exam: neck pain. TECHNIQUE: Axial computed tomography images of the cervical spine without intravenous contrast. CTDI is 36.08 mGy and DLP is 1687.16 mGy-cm. Automated exposure control was utilized for the study. A dose lowering technique was utilized adhering to the principles of ALARA. COMPARISON: No relevant prior studies available. FINDINGS: Vertebrae: Prominent multilevel cervical spondylosis. Loss of intervertebral disc height and subchondral cyst formation. Trace retrolisthesis of C5 on C6 and C6 on C7 which appears degenerative in etiology. No acute fracture. Discs/spinal canal/neural foramina: At C2-3, uncinate hypertrophy results in moderate right and severe left neuroforaminal stenoses. At C3- 4, uncinate hypertrophy results in severe bilateral neuroforaminal stenoses. Mild spinal canal stenosis seen. At C4-5, there is severe left and moderate right neuroforaminal stenosis with mild spinal canal stenosis. At C5-6, degenerative change results in moderate spinal canal narrowing and severe bilateral neuroforaminal stenoses. At C6-7, degenerative change results in severe bilateral neuroforaminal stenoses and moderate spinal canal stenosis. Soft tissues: Grossly Unremarkable. IMPRESSION: Prominent cervical spondylitic change with multilevel severe neuroforaminal stenoses and moderate spinal canal narrowing as detailed above. Electronically signed by: Sanchez Medina M.D. 09/01/22 05:38 AM
[2022-09-03] MEDS: BACLOFEN 10 MG TAB PO SCH ×2 (08:42→21:39)
--- NOTE | 2022-09-03 09:17 | Orthopedic Progress Note ---
Date of Service September 03, 2022 Assessment & Plan (1) Acute neck pain: Plan: CT scan and history reviewed. This patient is clearly not a surgical candidate. His best option is physical therapy and interventional pain management for treatment plan. Admission and Anticipated Discharge Date Admission Date: September 01, 2022 Subjective Neck pain Results & Data Vital Signs (Past 12 Hours) Vital Signs Temp Pulse Pulse Resp BP BP Pulse Ox 09/03/22 07:37 36.4 C L 60 18 97/60 L 94 09/03/22 07:24 63 09/03/22 02:00 60 09/03/22 03:31 36.5 C 61 18 114/75 98 09/02/22 22:19 36.5 C 60 16 92/57 L 94 09/02/22 22:17 60 09/02/22 21:36 O2 Del Method 09/03/22 07:37 Room Air 09/03/22 07:24 09/03/22 02:00 09/03/22 03:31 Room Air 09/02/22 22:19 Room Air 09/02/22 22:17 09/02/22 21:36 Room Air
--- NOTE | 2022-09-03 11:58 | Hospitalist Progress Note ---
Date of Service September 03, 2022 Assessment & Plan (1) Anemia: Plan: 82 old male with history of recent right femoral-popliteal artery vascularization/thrombectomy status post stent placement and angioplasty August 17, 2022, Paroxysmal atrial fibrillation on Eliquis, status post pacemaker placement, etc. presenting with persistent severe neck pain which started yesterday. Persistent cervical pain Underlying cervical stenosis, neuroforaminal stenosis -- Unclear trigger of severe pain Per family, patient cleaned their car 1 to 2 days prior to onset of severe pain --Required IV Dilaudid, etc. at the ER to control pain -- CT cervical spine: Severe narrowing of the left vertebral artery within the transverse foramen at C6-7 and mild narrowing at C5-6 secondary to prominent degenerative changes of the cervical spine. No other significant stenosis in the neck. -- Lidoderm patch, ice packs As needed oxycodone and Dilaudid for pain control Dr. Ham consulted PT and OT evaluation 09/02 Neck pain about the same Add Tylenol 1 g every 8 hours Patient prefers to defer prednisone for now Continue Zanaflex, oxycodone as needed We will consult pain management service Awaiting Dr. Ham's recommendation Continue PT and OT evaluation 09/03 Neck pain gradually improving Pain management service recommending to change Zanaflex to baclofen Patient declining supplemental Dosepak at this point Continue Tylenol 1 g every 8 hours, as needed oxycodone Continue PT and OT Patient would like to be transition to inpatient rehab Left vertebral artery narrowing, severe --Asymptomatic No neurologic symptoms -- Neurology consulted: No additional intervention at this point, recommend outpatient vascular surgery evaluation --Continue Eliquis, Plavix Positive Hemoccult blood test Acute blood loss anemia likely from recent Vascular Surgery -- Noted at the ER -- Hemoglobin baseline 14 After recent surgery, August 19, Hg 12 Hemoglobin at the ER 12 -- Colonoscopy 2014 revealing internal hemorrhoids and diverticulosis -- Anemia panel revealing iron 16 -- Decrease in hemoglobin likely related to recent vascular surgery Patient denies melena or hematochezia -- Discussed with GI service -- We will advance diet, resume Eliquis and Plavix given patient's extensive cardiovascular history -- Continue to trend hemoglobin daily, patient advised to report any melena or hematochezia immediately 09/03 Hemoglobin stable at 12.8 No melena or hematochezia Continue to monitor Recent right femoral-popliteal artery revascularization/thrombectomy, status post stent placement and angioplasty -- Site healing well except for hematoma noted on the thigh which is resolving per patient's -- Continue Plavix Did not tolerate statin patient was started after surgery, due to muscle pain CK level normal History of paroxysmal atrial fibrillation, status post pacemaker placement --Currently in sinus rhythm Continue eplerenone, Eliquis --Blood pressure on the lower side, likely from oxycodone Metoprolol held this morning Encouraged to increase oral fluid intake Monitor closely DVT prophylaxis, currently on Eliquis Disposition Patient agreeable to transition to inpatient rehab plan of care discussed with patient, Grace at the bedside in detail and at length all questions answered they are understanding, agreeable, comfortable with the plan of care (2) Intractable pain: Admission and Anticipated Discharge Date Admission Date: September 01, 2022 Subjective Follow-up for persistent neck pain, etc. Seen resting in bed, not in distress States neck pain is gradually improving Able to move his neck a little bit better compared to yesterday No neurologic symptoms No abdominal pain, nausea vomiting, melena or hematochezia, no BM since Saturday No other new symptom Review of Systems Review of Systems: all noted and negative except for above Physical Exam Physical Exam: General- oriented x 3, not in distress, speaks in sentences with no effort or accessory muscle use Eyes- anicteric Neck- no JVD Lungs- clear breath sounds bilaterally, no crackles or wheezing Heart- normal rate, regular rhythm; no murmurs Abdomen- normal bowel sounds, nondistended, soft, no tenderness Extremities- no pretibial edema, no calf tenderness Neuro- alert, oriented x 3; no gross focal neurologic deficits Skin- warm & dry Results & Data Results & Data Vital Signs (Past 12 Hours) Vital Signs Temp Pulse Pulse Pulse Resp BP BP 09/03/22 11:30 36.5 C 64 16 110/70 09/03/22 07:37 36.4 C L 60 18 97/60 L 09/03/22 07:24 63 09/03/22 02:00 60 09/03/22 03:31 36.5 C 61 18 114/75 Pulse Ox O2 Del Method 09/03/22 11:30 93 Room Air 09/03/22 07:37 94 Room Air 09/03/22 07:24 09/03/22 02:00 09/03/22 03:31 98 Room Air all noted and reviewed including below
[2022-09-03] MEDS ORDERED: MAGNESIUM HYDROXIDE SUSP 30 ML UDC PO PRN (13:23)
[2022-09-03] MEDS: PRAMIPEXOLE DIHYDROCHLO 0.5 MG TAB PO SCH (21:38)
[2022-09-04] MEDS: ACETAMINOPHEN 500 MG TAB PO SCH (04:48)
[2022-09-04] MEDS: POLYETHYLENE (MIRALAX) 17 GM PACK PO SCH (07:55)
[2022-09-04] MEDS: BACLOFEN 10 MG TAB PO SCH (07:55)
[2022-09-04] MEDS: FINASTERIDE 5 MG TAB PO SCH (07:56)
[2022-09-04] MEDS: APIXABAN 5 MG TABLET PO SCH (07:56)
[2022-09-04] MEDS: METOPROLOL SUCC 25MG EXT REL TAB PO SCH (07:57)
[2022-09-04] MEDS: FERROUS SULFATE 325 MG TAB PO SCH (07:58)
[2022-09-04] MEDS: LIDOCAINE 5% 1 PATCH TD SCH (07:58)
[2022-09-04] MEDS: CLOPIDOGREL BISULFATE 75 MG TAB PO SCH (07:58)
[2022-09-04] MEDS: EPLERENONE 25 MG PO SCH (07:58)
--- NOTE | 2022-09-04 08:33 | Pain Management Progress Note ---
Date of Service September 04, 2022 Assessment & Plan (1) Acute neck pain: Plan: I will switch the Baclofen back to Tizanidine as he did find it more effective. He is feeling well and in preparation for discharge to rehab facility. Admission and Anticipated Discharge Date Admission Date: September 01, 2022 Subjective Mr. Goldstein reports moderate improvement in neck pain since yesterday. He rates his pain 6/10 currently. He did find the Tizanidine more effective than the Baclofen. The pain remains in the lower neck without radiation down the arms. No side effects to medications. He has been limiting use of Oxycodone and plans on discharge to [facility] for 1 week to work on physical therapy. Physical Exam Physical Exam: GENERAL: This is an 82 year old male in no acute distress. HEAD/FACE: Normocephalic and atraumatic. EYES: No drainage or conjunctival injection. ENT: Nose without bleeding or discharge. Oral mucosa moist. NECK: Slightly limited without apparent pain. No swelling or masses noted. RESPIRATORY: Patient with unlabored breathing. No signs of respiratory distress. CHEST/AXILLA: Chest movement symmetrical. No deformities noted. SKIN: [place], warm and dry. No rash noted. MS/EXTREMITY: No swelling, no deformities. Moving extremities appropriately. NEURO: Alert and appears oriented. Speech is fluent. Cranial Nerves are grossly intact. PSYCH: Alert, pleasant, affect is calm
[2022-09-04] MEDS ORDERED: tiZANidine HCL 4 MG TABLET PO SCH (09:00)
[2022-09-04 09:58] LABS: Calcium 9.9 mg/dl (8.6-10.3); Est GFR (African American) 75.4 ml/min; Potassium 3.9 mmol/L (3.5-5.1)
--- NOTE | 2022-09-04 10:43 | Hospitalist Progress Note ---
Date of Service September 04, 2022 Assessment & Plan (1) Anemia: Plan: 82 old male with history of recent right femoral-popliteal artery vascularization/thrombectomy status post stent placement and angioplasty August 17, 2022, Paroxysmal atrial fibrillation on Eliquis, status post pacemaker placement, etc. presenting with persistent severe neck pain which started yesterday. Persistent cervical pain Underlying cervical stenosis, neuroforaminal stenosis -- Unclear trigger of severe pain Per family, patient cleaned their car 1 to 2 days prior to onset of severe pain -- Required IV Dilaudid, etc. at the ER to control pain -- CT cervical spine: Severe narrowing of the left vertebral artery within the transverse foramen at C6-7 and mild narrowing at C5-6 secondary to prominent degenerative changes of the cervical spine. No other significant stenosis in the neck. -- Neurosurgery service-Dr. Ham consult, does not recommend surgical intervention at this point Pain management service also consulted Patient given Zanaflex 3 times daily, Tylenol 1 g 3 times daily, as needed oxycodone 5 to 10 mg p.o. every 6 hours as needed respectfully declines prednisone/Solu-Medrol for now Trialed with baclofen but response was not adequate Gradually improved Participating with PT and OT quite well Discharge plan: Zanaflex 3 times daily, then wean off accordingly As needed Tylenol 1 g 3 times daily As needed oxycodone 5 mg every 6 hours for severe pain MiraLAX daily Continue PT and OT Patient highly motivated Left vertebral artery narrowing, severe --Asymptomatic No neurologic symptoms -- Neurology consulted: No additional intervention at this point, recommend outpatient vascular surgery evaluation --Continue Eliquis, Plavix Positive Hemoccult blood test Acute blood loss anemia likely from recent Vascular Surgery Iron, vitamin B12 deficiency -- Noted at the ER -- Hemoglobin baseline 14 After recent surgery, August 19, Hg 12 Hemoglobin at the ER 12 -- Colonoscopy 2014 revealing internal hemorrhoids and diverticulosis -- Anemia panel revealing iron 16 Vitamin B12 178 -- Decrease in hemoglobin likely related to recent vascular surgery Patient denies melena or hematochezia -- Discussed with GI service -- We will advance diet, resume Eliquis and Plavix given patient's extensive cardiovascular history -- Continue to trend hemoglobin daily, patient advised to report any melena or hematochezia immediately 09/04 Hemoglobin stable at 12.8 No melena or hematochezia Patient advised to closely monitor bowel movements, report to PCP if with melena or hematochezia Monitor CBC closely Iron supplement and vitamin B12 supplement ordered-monitor levels Recent right femoral-popliteal artery revascularization/thrombectomy, status post stent placement and angioplasty -- Site healing well except for hematoma noted on the thigh which is resolving per patient's -- Continue Plavix Did not tolerate statin patient was started after surgery, due to muscle pain CK level normal History of paroxysmal atrial fibrillation, status post pacemaker placement --Currently in sinus rhythm Continue eplerenone, Eliquis --Blood pressure improved after IV fluids Monitor blood pressure closely DVT prophylaxis, currently on Eliquis Disposition transition to inpatient rehab Follow-up with PCP in 1 week Follow-up with cardiology as scheduled plan of care discussed with patient, Nan at the bedside in detail and at length all questions answered they are understanding, agreeable, comfortable with the plan of care (2) Intractable pain: Admission and Anticipated Discharge Date Admission Date: September 01, 2022 Subjective Follow-up for cervical pain, cervical spondylosis, etc. Seen sitting up in bedside chair comfortable, in good spirits States his neck pain was again high last night, improving this morning, able to move neck better Ambulate in the hallways today with no problems No other new symptoms States he is ready for discharge to [facility] today Review of Systems Review of Systems: all noted and negative except for above Physical Exam Physical Exam: General- oriented x 3, not in distress, speaks in sentences with no effort or accessory muscle use Eyes- anicteric Neck- no JVD Lungs- clear breath sounds bilaterally Heart- normal rate, regular rhythm; no murmurs Abdomen- normal bowel sounds, nondistended, soft, nontender Extremities- no pretibial edema, no calf tenderness Neuro- alert, oriented x 3; no gross focal neurologic deficits Skin- warm & dry Results & Data Results & Data Vital Signs (Past 12 Hours) Vital Signs Temp Pulse Pulse Resp BP Pulse Ox O2 Del Method 09/04/22 07:18 36.6 C 66 18 153/86 H 95 Room Air 09/04/22 07:15 64 09/04/22 03:00 36.4 C L 61 18 129/81 93 Room Air 09/04/22 00:34 Room Air all noted and reviewed including below
--- NOTE | 2022-09-04 11:04 | Discharge Summary ---
Discharge Summary Date of Service September 04, 2022 Notes For Next Care Provider Medication Changes From Visit New medications: Zanaflex 2 mg 3 times daily Tylenol 1 g every 8 hours as needed Oxycodone 5 mg 4 times daily as needed MiraLAX daily Milk of magnesium as needed Ferrous sulfate 325 mg twice daily B12 1000 mg daily Admission HPI Per Admitting Provider History obtained from patient, family, and records. Medical history significant for SSS status post PPM, hypertension, hyperaldosteronism as per records, CAD, PVD status post recent angioplasty currently on Eliquis, hyperlipidemia, statin intolerance, hypothyroidism, prediabetes, RLS, GERD, diverticulosis, mood disorder, past tobacco abuse. Last [facility] confinement February 2021 for chest pain attributed to GERD. Patient was at [facility] last 08/17/22 for RLE claudication secondary to right popliteal artery occlusion due to probable cardiogenic involvement status post elective mechanical thrombectomy and post thrombolytic therapy of the right popliteal artery with stent placement of stents.patient discharged on Eliquis postprocedure. Overnight [facility] readmission a few days later for postop discomfort. Hemoglobin noted to be 12.3 from normal baseline during confinement. Patient denies black/bloody stools. Patient instructed to take statin medications postprocedure. Patient did so with hesitation after bad reaction described as generalized pain after taking statin 10 years ago. Few days ago, patient noted achiness and myalgias similar to statin reaction from 10 years ago. Patient stopped statin Rx. Gradual improvement of symptoms. Patient seen at PCP's office yesterday. Outpatient CPK noted to be within normal limits. Body aches later gone patient not assessed worsening neck pain. No radiation to the arms or legs. No arm or leg weakness/numbness. No incontinence symptoms. No recollection of trauma or change in sleeping position. No headache, no chest pain, no SOB, no abdominal pain complaints. Intermittent leg cramps noted. Intractable neck discomfort at the ER Medical History as above 2014 colonoscopy showed diverticulosis Surgical History : PPM, thrombectomy, femoropopliteal artery revascularization/angioplasty, hernia repair, appendectomy, right neck lymph node removal Family History : Alcoholism, heart disease, stroke Personal/Social history : Past tobacco abuse, occasional EtOH intake, retired clinical psychologist Admission Exam Per Admitting Provider GENERAL: uncomfortable, pleasant, no respiratory distress SKIN: Pallor, warm HEENT: Pale palpebral conjunctivae, no ptosis, dry buccal mucosa NECK : Limited cervical range of motion, minimal cervical tenderness CHEST : CTA, no tenderness HEART : RRR, no obvious murmurs ABDOMEN: no distention, nontender RECTAL : Intact sphincter, brown stool (FOBT positive) EXTREMITIES : Minimal LE swelling, no LE tenderness, no other conspicuous deformities noted NEUROLOGIC : Coherent, no facial asymmetry, no other gross focality Principal Dx & Hospital Course #1 = Principal Diagnosis (1) Anemia: 82 old male with history of recent right femoral-popliteal artery vascularization/thrombectomy status post stent placement and angioplasty August 17, 2022, Paroxysmal atrial fibrillation on Eliquis, status post pacemaker placement, etc. presenting with persistent severe neck pain which started yesterday. Persistent cervical pain Underlying cervical stenosis, neuroforaminal stenosis -- Unclear trigger of severe pain Per family, patient cleaned their car 1 to 2 days prior to onset of severe pain -- Required IV Dilaudid, etc. at the ER to control pain -- CT cervical spine: Severe narrowing of the left vertebral artery within the transverse foramen at C6-7 and mild narrowing at C5-6 secondary to prominent degenerative changes of the cervical spine. No other significant stenosis in the neck. -- Neurosurgery service-Dr. Ham consult, does not recommend surgical intervention at this point Pain management service also consulted Patient given Zanaflex 3 times daily, Tylenol 1 g 3 times daily, as needed oxycodone 5 to 10 mg p.o. every 6 hours as needed respectfully declines prednisone/Solu-Medrol for now Trialed with baclofen but response was not adequate Gradually improved Participating with PT and OT quite well Discharge plan: Zanaflex 3 times daily, then wean off accordingly As needed Tylenol 1 g 3 times daily As needed oxycodone 5 mg every 6 hours for severe pain MiraLAX daily Continue PT and OT Patient highly motivated Left vertebral artery narrowing, severe --Asymptomatic No neurologic symptoms -- Neurology consulted: No additional intervention at this point, recommend outpatient vascular surgery evaluation --Continue Eliquis, Plavix Positive Hemoccult blood test Acute blood loss anemia likely from recent Vascular Surgery Iron, vitamin B12 deficiency -- Noted at the ER -- Hemoglobin baseline 14 After recent surgery, August 19, Hg 12 Hemoglobin at the ER 12 -- Colonoscopy 2014 revealing internal hemorrhoids and diverticulosis -- Anemia panel revealing iron 16 Vitamin B12 178 -- Decrease in hemoglobin likely related to recent vascular surgery Patient denies melena or hematochezia -- Discussed with GI service -- We will advance diet, resume Eliquis and Plavix given patient's extensive cardiovascular history -- Continue to trend hemoglobin daily, patient advised to report any melena or hematochezia immediately 09/04 Hemoglobin stable at 12.8 No melena or hematochezia Patient advised to closely monitor bowel movements, report to PCP if with melena or hematochezia Monitor CBC closely Iron supplement and vitamin B12 supplement ordered-monitor levels Recent right femoral-popliteal artery revascularization/thrombectomy, status post stent placement and angioplasty -- Site healing well except for hematoma noted on the thigh which is resolving per patient's -- Continue Plavix Did not tolerate statin patient was started after surgery, due to muscle pain CK level normal History of paroxysmal atrial fibrillation, status post pacemaker placement --Currently in sinus rhythm Continue eplerenone, Eliquis --Blood pressure improved after IV fluids Monitor blood pressure closely DVT prophylaxis, currently on Eliquis Disposition transition to inpatient rehab Follow-up with PCP in 1 week Follow-up with cardiology as scheduled plan of care discussed with patient, Nan at the bedside in detail and at length all questions answered they are understanding, agreeable, comfortable with the plan of care Discharge Exam General- oriented x 3, not in distress, speaks in sentences with no effort or accessory muscle use Eyes- anicteric Neck- no JVD Lungs- clear breath sounds bilaterally Heart- normal rate, regular rhythm; no murmurs Abdomen- normal bowel sounds, nondistended, soft, nontender Extremities- no pretibial edema, no calf tenderness Neuro- alert, oriented x 3; no gross focal neurologic deficits Skin- warm & dry Updated Medication List Medication Instructions Recorded Confirmed Type pramipexole 1.5 mg tablet 3 mg PO HS 03/22/21 08/31/22 History carboxymethylcellulose sodium 0.5 1 drp ophthalmic (eye) QID 06/07/21 08/31/22 History % eye drops apixaban 5 mg tablet (Eliquis) 5 mg PO BID 08/31/22 08/31/22 History cholecalciferol (vitamin D3) 10 10 mcg PO DAILY 08/31/22 08/31/22 History mcg (400 unit) capsule (Vitamin D3) clopidogrel 75 mg tablet 75 mg PO DAILY 08/31/22 08/31/22 History eplerenone 50 mg tablet 50 mg PO BID 08/31/22 08/31/22 History ezetimibe 10 mg tablet 10 mg PO QAM 08/31/22 08/31/22 History finasteride 5 mg tablet 5 mg PO DAILY 08/31/22 08/31/22 History metoprolol succinate 25 mg 12.5 mg PO DAILY 08/31/22 08/31/22 History tablet,extended release 24 hr cyanocobalamin (vitamin B-12) 1,000 mcg PO DAILY #30 caps 09/04/22 Rx 1,000 mcg capsule ferrous sulfate 325 mg (65 mg 325 mg PO BIDM 30 days #60 tabs 09/04/22 Rx iron) tablet,delayed release magnesium hydroxide 400 mg/5 mL 30 ml PO Q6H PRN constipation 7 09/04/22 Rx oral suspension (Milk of Magnesia) days #355 mL oxycodone 5 mg tablet 5 mg PO QID PRN Pain #10 tabs 09/04/22 08/31/22 Rx polyethylene glycol 3350 17 gram 17 g PO DAILY 7 days #14 ea 09/04/22 Rx oral powder packet (Miralax) tizanidine 4 mg tablet 2 mg PO TID 5 days #8 tabs 09/04/22 Rx Hospital Stay Data Consultations 09/01/22 06:12 ED Decision to Admit Stat 09/01/22 07:53 Consult Neurology Routine Consult Orthopedic Surgery Routine 09/01/22 09:41 Consult Gastroenterology Routine 09/02/22 18:05 Consult Pain Management Routine Diagnostic Imagining Performed 08/31/22 22:53 CT cervical spine wo con Stat COMPARISON: No relevant prior studies available. FINDINGS: Vertebrae: Prominent multilevel cervical spondylosis. Loss of intervertebral disc height and subchondral cyst formation. Trace retrolisthesis of C5 on C6 and C6 on C7 which appears degenerative in etiology. No acute fracture. Discs/spinal canal/neural foramina: At C2-3, uncinate hypertrophy results in moderate right and severe left neuroforaminal stenoses. At C3- 4, uncinate hypertrophy results in severe bilateral neuroforaminal stenoses. Mild spinal canal stenosis seen. At C4-5, there is severe left and moderate right neuroforaminal stenosis with mild spinal canal stenosis. At C5-6, degenerative change results in moderate spinal canal narrowing and severe bilateral neuroforaminal stenoses. At C6-7, degenerative change results in severe bilateral neuroforaminal stenoses and moderate spinal canal stenosis. Soft tissues: Grossly Unremarkable. IMPRESSION: Prominent cervical spondylitic change with multilevel severe neuroforaminal stenoses and moderate spinal canal narrowing as detailed above. Electronically signed by: Sanchez Medina M.D. 09/01/22 05:[address] head/brain wo con Stat FINDINGS: Exam limited due to lack of coronal sagittal reformatted images. Within this constraint: There is no acute intracranial hemorrhage or major vascular territory infarct. No mass effect or midline shift seen. There is prominence of the ventricles and sulci consistent with generalized parenchymal volume loss. Scattered hypodensities throughout the periventricular and subcortical white matter are noted, likely sequela of chronic microvascular changes. The calvarium is intact. Bilateral lens replacements noted. 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 The mastoid air cells are clear. IMPRESSION: Exam limited due to lack of coronal sagittal reformatted images. Within this constraint: CTA neck with con [CT angio neck with con] Stat COMPARISON: None. FINDINGS: VASCULATURE: Right common carotid artery: No occlusion or significant stenosis. No dissection. Right internal carotid artery: See below. Right external carotid artery: Unremarkable. No occlusion. Right vertebral artery: No occlusion or significant stenosis. No dissection. Left common carotid artery: No occlusion or significant stenosis. No dissection. Left internal carotid artery: See below. Left external carotid artery: Unremarkable. No occlusion. Left vertebral artery: Mild narrowing within the transverse foramen at C5-6 and moderate to severe narrowing at C6-7 secondary to prominent degenerative changes of the cervical spine. No occlusion. No dissection. Other vasculature: Calcified and noncalcified atherosclerotic plaque within the carotid bifurcations and proximal ICA bilaterally with less than 50% stenosis. NECK: Bones/joints: Multilevel cervical spondylosis, see CT cervical spine for detailed evaluation. Soft tissues: Unremarkable. Lung apices: Clear. CAROTID STENOSIS REFERENCE USING NASCET CRITERIA: % ICA stenosis = (1 - narrowest ICA diameter/diameter of distal cervical ICA) x 100. Mild - <50% stenosis. Moderate - 50-69% stenosis. Severe - 70-94% stenosis. Near occlusion - 95-99% stenosis. Occluded - 100% stenosis. 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 No other significant stenosis in the neck. Prominent multilevel cervical spondylosis detailed on dedicated CT of the cervical spine. Electronically signed by: Sanchez Medina M.D. 09/01/22 05:42 AM US venous doppler LE BI Stat COMPARISON: No relevant prior studies available. FINDINGS: Right deep veins: Unremarkable. No DVT in the right common femoral, femoral, proximal deep femoral or popliteal veins. The veins demonstrate normal color flow, are normally compressible, with normal phasic flow and/or augmentation response. Right superficial veins: Unremarkable. No thrombus in the visualized right great saphenous vein. Left deep veins: Unremarkable. No DVT in the left common femoral, femoral, proximal deep femoral or popliteal veins. The veins demonstrate normal color flow, are normally compressible, with normal phasic flow and/or augmentation response. Left superficial veins: Unremarkable. No thrombus in the visualized left great saphenous vein. Soft tissues: 3.6 cm cystic focus seen in the right popliteal fossa. IMPRESSION: No acute findings in the bilateral lower extremity veins. Electronically signed by: Shaji Mata MD 09/01/22 06:04 AM Pending Results Patient Have Any Pending Studies at Discharge: No Discharge Instructions Given to Patient (Per Discharging Provider) Please refer to accompanying hospital discharge summary. Total Time Total Time Spent Total Time Spent (In Minutes): >30 minutes
== END 2022-09-04 11:40 | DRG 552 ==
LOC: ED 22:25 → 2N 09-01 07:49 → SUATTDRO 09-01 07:49 → 2N 09-01 09:21